=== PATIENT | female | born 1980 | race Hispanic/Latino ===

== ENCOUNTER 2017-08-06 15:58 | Emergency (ER) | payer MEDICAID ==
--- NOTE | 2017-08-06 18:04 | Emergency Department Report ---
ED General Adult HPI - General Chief complaint: Medical Clearance Stated complaint: REFUSAL OF CARE Time Seen by Provider: 08/06/17 17:25 Source: patient, EMS Mode of arrival: Stretcher Limitations: Physical Limitation - History of Present Illness Initial comments: Patient is 36 yo old female history of cerebral palsy and seizure. 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 senior care stated that her tube dislodged last night and replaced with Banks catheter. - Related Data Allergies Allergy/AdvReac Type Severity Reaction Status Date / Time Penicillins Allergy Hives Verified 08/06/17 17:38 ED Review of Systems ROS: Stated complaint: REFUSAL OF CARE Other details as noted in HPI Comment: All other systems reviewed and negative Constitutional: denies: chills, fever Respiratory: denies: cough, orthopnea, shortness of breath, SOB with exertion Cardiovascular: denies: chest pain Gastrointestinal: denies: abdominal pain, nausea, vomiting, diarrhea Genitourinary: denies: urgency Skin: denies: rash Neurological: weakness. denies: headache ED Past Medical Hx - Past Medical History Previous Medical History?: Yes Hx Diabetes: Yes Additional medical history: Guilla Lind[place], Cerebral Palsy, Seizure Disorder, Morbid Obesity, Sleep Apnea, Electrolyte Disorder, Dysautomia, Sinus Tachycardia , Dyshphagia - Surgical History Past Surgical History?: Yes Additional Surgical History: Gastric Banding, saplingectomy, tracheostomy placement, pt unaware of other surgical history - Social History Smoking Status: Never Smoker Substance Use Type: None ED Physical Exam - General Limitations: Physical Limitation General appearance: alert, in no apparent distress - Head Head exam: Present: atraumatic, normocephalic, normal inspection - Eye Eye exam: Present: normal appearance, PERRL Pupils: Present: normal accommodation - ENT ENT exam: Present: normal exam, normal orophraynx, mucous membranes moist - Neck Neck exam: Present: normal inspection, full ROM. Absent: tenderness, meningismus, lymphadenopathy, thyromegaly - Respiratory Respiratory exam: Present: normal lung sounds bilaterally. Absent: respiratory distress, wheezes, rales, rhonchi, stridor, accessory muscle use, decreased breath sounds, prolonged expiratory - Cardiovascular Cardiovascular Exam: Present: regular rate, normal rhythm, normal heart sounds - GI/Abdominal GI/Abdominal exam: Present: soft, normal bowel sounds, other (Banks catheter in the site of PEG tube.). Absent: distended, tenderness, guarding, rebound, rigid , organomegaly, mass, bruit, pulsatile mass, hernia - Extremities Exam Extremities exam: Present: normal inspection, full ROM, normal capillary refill. Absent: tenderness - Back Exam Back exam: Present: normal inspection. Absent: CVA tenderness (R), CVA tenderness (L), muscle spasm, paraspinal tenderness - Neurological Exam Neurological exam: Present: alert, oriented X3, CN II-XII intact - Skin Skin exam: Present: warm, intact, normal color ED Course Vital Signs 08/06/17 08/06/17 08/06/17 16:52 18:56 19:00 Temperature 98.8 F Pulse Rate 100 H 109 H Respiratory 17 20 Rate Blood Pressure 122/86 Blood Pressure 122/91 [Left] O2 Sat by Pulse 96 100 97 Oximetry 08/06/17 19:39 Temperature Pulse Rate 104 H Respiratory 21 Rate Blood Pressure Blood Pressure 131/85 [Left] O2 Sat by Pulse 97 Oximetry - Feeding Tube Replacement Reason for Replacement: fell out Initial Tube Inserted: greater than 4 weeks Type of Tube: gastrostomy Use of Tube: medications and feeding Insertion Site Prior to Procedure: clean Tube Used for Reinsertion: other (18 [place] G-tube) Verification of Placement: auscultation Tube Secured by: G-tube attachment device Patient Tolerated Procedure: well, no complications Critical care attestation.: If time is entered above; I have spent that time in minutes in the direct care of this critically ill patient, excluding procedure time. ED Disposition Clinical Impression: Gastrostomy tube dysfunction Disposition: DC/TX-70 ANOTHER TYPE HLTHCARE Is pt being admited?: No Condition: Stable Instructions: How to Use and Care for Your PEG Tube (ED), Tube Feeding (ED) Referrals: PRIMARY CARE, [Primary Care Provider] - 3-5 Days
[2017-08-07 04:10] VITALS: BP 143/102
== END 2017-08-07 12:43 | disposition other institution (70) ==
LOC: ED 15:58
DX: K94.23 Gastrostomy malfunction (principal); E11.9 Type 2 diabetes mellitus without complications; G40.909 Epilepsy, unspecified, not intractable, without status epilepticus; E66.01 Morbid (severe) obesity due to excess calories; Z88.0 Allergy status to penicillin
CPT/HCPCS: 93005; 93010

== ENCOUNTER 2017-08-07 12:45 | Inpatient (IN) | payer MEDICAID ==
[2017-08-07] MEDS ORDERED: ATIVAN IV ONE ×2 (12:56→14:56)
[2017-08-07] MEDS ORDERED: NACL 0.9% 1000 ML 1,000 ML IV ONE (12:57)
[2017-08-07 16:16] LABS: Basophils % (Auto) 0.6 % (0.0-1.8); Eosinophils % (Auto) 0.3 % (0.0-4.3); Hematocrit 42.4 % (30.3-42.9); Hemoglobin 13.6 gm/dl (10.1-14.3); Mean Corpuscular HGB Conc 32 % (30-34); Mean Corpuscular Volume 80 fl (79-97); Platelet Count 310 K/mm3 (140-440); Red Blood Count 5.27 M/mm3 (3.65-5.03); Red Cell Distribution Width 16.5 % (13.2-15.2); White Blood Count 9.3 K/mm3 (4.5-11.0)
[2017-08-07 16:28] LABS: INR 1.12 (0.87-1.13)
[2017-08-07 16:33] LABS: Alanine Aminotransferase 22 units/L (7-56); Albumin/Globulin Ratio 1.2 %; Alkaline Phosphatase 132 units/L (35-129); Anion Gap 20 mmol/L; BUN/Creatinine Ratio 85; Blood Urea Nitrogen 17 mg/dL (7-17); Calcium 10.1 mg/dL (8.4-10.2); Carbon Dioxide 24 mmol/L (22-30); Chloride 108.1 mmol/L (98-107); Glucose 103 mg/dL (65-100); Mean Corpuscular Hemoglobin 26 pg (28-32); Potassium 3.9 mmol/L (3.6-5.0); Sodium 148 mmol/L (137-145); Total Protein 7.3 g/dL (6.3-8.2)
[2017-08-07] MEDS ORDERED: DILAUDID IV ONE (16:33)
[2017-08-07] MEDS ORDERED: ZOFRAN IV ONE (16:33)
[2017-08-07] MEDS ORDERED: MAGNESIUM SULFATE 2GM/50ML 2 GM/50 ML BAG IV ONE (16:34)
--- NOTE | 2017-08-07 16:35 | Emergency Department Report ---
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 Patient was seen by ER physician as night and had a G-tube replaced. She initially refused to go back to the longterm and after social work evaluation this a.m. was finally agreeable to go back. While awaiting transport patient had a seizure episode with increase in heart rate to the 140s. A new chart was made because patient needed repeat assessment. Patient's heart rate during ED stay the previous day were in the 120s. Patient apparently has a history of sinus tachycardia, baseline unknown. - Related Data Home Medications Medication Instructions Recorded Confirmed Last Taken ALPRAZolam [Xanax TAB] 0.25 mg FEEDTUBE TID PRN 08/07/17 08/07/17 Unknown Acetaminophen [Tylenol] 640 mg PO Q6HR 08/07/17 08/07/17 Unknown Albuterol [Proventil Tab] 2.5 mg IH Q2HR PRN 08/07/17 08/07/17 Unknown Alum-Mag Hydroxide-Simeth Liq 15 ml PO Q4HR 08/07/17 08/07/17 Unknown Enoxaparin [Lovenox] 40 mg SQ QDAY 08/07/17 08/07/17 Unknown Esomeprazole Magnesium 40 mg FEEDTUBE QHS 08/07/17 08/07/17 Unknown Folic Acid [Folvite] 1 mg PO QDAY 08/07/17 08/07/17 Unknown Gabapentin [Neurontin] 400 mg PO TID 08/07/17 08/07/17 Unknown Hydrocortisone [Adv Allergy 1 applic TRANSDERMA BID 08/07/17 08/07/17 Unknown Collection Kit] Lacosamide [Vimpat] 100 mg PO BID 08/07/17 08/07/17 Unknown Lactobacillus Acidophilus 1 each PO DAILY 08/07/17 08/07/17 Unknown [Acidophilus Lactobacilli] diphenhydrAMINE [Benadryl ORAL LIQ] 12.5 mg PO Q6HR PRN 08/07/17 08/07/17 Unknown oxyCODONE [Roxicodone TAB] 2.5 - 5 mg FEEDTUBE Q4HR 08/07/17 08/07/17 Unknown Allergies Allergy/AdvReac Type Severity Reaction Status Date / Time Penicillins Allergy Hives Verified 08/06/17 17:38 ED Review of Systems ROS: Stated complaint: SEIZURE Other details as noted in HPI Comment: All other systems reviewed and negative Other: Constitutional: No fevers Neck: Denies pain Respiratory: Denies shortness of breath Cardiovascular: Denies chest GI: Mao abdominal pain reported Musculoskeletal: Back pain Neurologic: Denies headache, functional quadriplegia Psychiatric: Denies suicidal ideation, hallucinations ED Past Medical Hx - Past Medical History Previous Medical History?: Yes Hx Diabetes: Yes Additional medical history: Guillan [place], Cerebral Palsy, Seizure Disorder, Morbid Obesity, Sleep Apnea, Electrolyte Disorder, Dysautomia, Sinus Tachycardia , Dyshphagia, Cervical DJD, Lumbar DJD, Encephalopathy, Yeast Dermatitis, HTNm Hyperlipidemia, Anemia, Leukocytosis, Renal Mass, Bladder Spasm, Hyponatremia, Hypokalemia, Hypomagnesemia, Depresion/Anxiety, Fibrosis of the Liver, Chronic Respiratory Failure, Psuedoseizure, Rosacea, Diarrhea, - Surgical History Past Surgical History?: Yes Additional Surgical History: Gastric Banding, saplingectomy, tracheostomy placement, pt unaware of other surgical history - Social History Smoking Status: Never Smoker Substance Use Type: None - Medications Home Medications: Home Medications Medication Instructions Recorded Confirmed Last Taken Type ALPRAZolam [Xanax TAB] 0.25 mg FEEDTUBE TID PRN 08/07/17 08/07/17 Unknown History Acetaminophen [Tylenol] 640 mg PO Q6HR 08/07/17 08/07/17 Unknown History Albuterol [Proventil Tab] 2.5 mg IH Q2HR PRN 08/07/17 08/07/17 Unknown History Alum-Mag Hydroxide-Simeth Liq 15 ml PO Q4HR 08/07/17 08/07/17 Unknown History Enoxaparin [Lovenox] 40 mg SQ QDAY 08/07/17 08/07/17 Unknown History Esomeprazole Magnesium 40 mg FEEDTUBE QHS 08/07/17 08/07/17 Unknown History Folic Acid [Folvite] 1 mg PO QDAY 08/07/17 08/07/17 Unknown History Gabapentin [Neurontin] 400 mg PO TID 08/07/17 08/07/17 Unknown History Hydrocortisone [Adv Allergy 1 applic TRANSDERMA BID 08/07/17 08/07/17 Unknown History Collection Kit] Lacosamide [Vimpat] 100 mg PO BID 08/07/17 08/07/17 Unknown History Lactobacillus Acidophilus 1 each PO DAILY 08/07/17 08/07/17 Unknown History [Acidophilus Lactobacilli] diphenhydrAMINE [Benadryl ORAL LIQ] 12.5 mg PO Q6HR PRN 08/07/17 08/07/17 Unknown History oxyCODONE [Roxicodone TAB] 2.5 - 5 mg FEEDTUBE Q4HR 08/07/17 08/07/17 Unknown History ED Physical Exam - General Limitations: Physical Limitation - Other Other exam information: General: No acute distress Head exam: Atraumatic, normocephalic Eyes exam: Normal appearance ENT: Moist mucous membrane Neck exam: Normal inspection, full range of motion, no meningismus nontender, tracheostomy stoma with gauze Respiratory exam: Bilateral rhonchi without wheezing or crackles Cardiovascular: Tachycardia regular rhythm Abdomen: Soft, nondistended, nontender, with normal bowel sounds, no rebound, or guarding. PEG tube left upper quadrant Extremity: Generalized extremity muscle atrophy Back: Normal Inspection Neurologic: Alert, functional quadriplegia ED Course Vital Signs 08/07/17 08/07/17 12:58 16:39 Temperature 98.4 F 98.4 F Pulse Rate 142 H 141 H Respiratory 39 H 16 Rate Blood Pressure 149/107 Blood Pressure 131/94 [Right] O2 Sat by Pulse 98 98 Oximetry - Reevaluation(s) Reevaluation #1: 08/07/17 19:08 Patient had a prolonged course in the ED due to repeated refusals for blood draw. Patient also intermittently refuse IV access attempts delaying care. Patient remains tachycardic despite ED treatment (see MDM note) ED Medical Decision Making - Lab Data Result diagrams: 08/07/17 15:48 08/07/17 15:48 Lab Results 08/07/17 08/07/17 08/07/17 Range/Units 14:31 15:48 15:48 WBC 9.3 (4.5-11.0) K/mm3 RBC 5.27 H (3.65-5.03) M/mm3 Hgb 13.6 (10.1-14.3) gm/dl Hct 42.4 (30.3-42.9) % MCV 80 (79-97) fl MCH 26 L (28-32) pg MCHC 32 (30-34) % RDW 16.5 H (13.2-15.2) % Plt Count 310 (140-440) K/mm3 Lymph % (Auto) 25.8 (13.4-35.0) % [place] % (Auto) 4.1 (0.0-7.3) % Eos % (Auto) 0.3 (0.0-4.3) % Baso % (Auto) 0.6 (0.0-1.8) % Lymph # 2.4 (1.2-5.4) K/mm3 [place] # 0.4 (0.0-0.8) K/mm3 Eos # 0.0 (0.0-0.4) K/mm3 Baso # 0.1 (0.0-0.1) K/mm3 Seg Neutrophils % 69.2 (40.0-70.0) % Seg Neutrophils # 6.4 (1.8-7.7) K/mm3 PT (12.2-14.9) Sec. INR (0.87-1.13) D-Dimer (0-234) ng/mlDDU Sodium 148 H (137-145) mmol/L Potassium 3.9 (3.6-5.0) mmol/L Chloride 108.1 H (98-107) mmol/L Carbon Dioxide 24 (22-30) mmol/L Anion Gap 20 mmol/L BUN 17 (7-17) mg/dL Creatinine < 0.2 L (0.7-1.2) mg/dL Estimated GFR > 60 ml/min BUN/Creatinine Ratio 85 % Glucose 103 H (65-100) mg/dL POC Glucose 96 (70-105) Calcium 10.1 (8.4-10.2) mg/dL Magnesium 1.50 L (1.7-2.3) mg/dL Total Bilirubin 0.20 (0.1-1.2) mg/dL AST 20 (5-40) units/L ALT 22 (7-56) units/L Alkaline Phosphatase 132 H (35-129) units/L Total Protein 7.3 (6.3-8.2) g/dL Albumin 4.0 (3.9-5) g/dL Albumin/Globulin Ratio 1.2 % TSH (0.270-4.200) mlU/mL Free T4 (0.76-1.46) ng/dL Phenytoin (10.0-20.0) ug/mL 08/07/17 08/07/17 08/07/17 Range/Units 15:48 15:48 15:48 WBC (4.5-11.0) K/mm3 RBC (3.65-5.03) M/mm3 Hgb (10.1-14.3) gm/dl Hct (30.3-42.9) % MCV (79-97) fl MCH (28-32) pg MCHC (30-34) % RDW (13.2-15.2) % Plt Count (140-440) K/mm3 Lymph % (Auto) (13.4-35.0) % [place] % (Auto) (0.0-7.3) % Eos % (Auto) (0.0-4.3) % Baso % (Auto) (0.0-1.8) % Lymph # (1.2-5.4) K/mm3 [place] # (0.0-0.8) K/mm3 Eos # (0.0-0.4) K/mm3 Baso # (0.0-0.1) K/mm3 Seg Neutrophils % (40.0-70.0) % Seg Neutrophils # (1.8-7.7) K/mm3 PT 15.0 H (12.2-14.9) Sec. INR 1.12 (0.87-1.13) D-Dimer (0-234) ng/mlDDU Sodium (137-145) mmol/L Potassium (3.6-5.0) mmol/L Chloride (98-107) mmol/L Carbon Dioxide (22-30) mmol/L Anion Gap mmol/L BUN (7-17) mg/dL Creatinine (0.7-1.2) mg/dL Estimated GFR ml/min BUN/Creatinine Ratio % Glucose (65-100) mg/dL POC Glucose (70-105) Calcium (8.4-10.2) mg/dL Magnesium (1.7-2.3) mg/dL Total Bilirubin (0.1-1.2) mg/dL AST (5-40) units/L ALT (7-56) units/L Alkaline Phosphatase (35-129) units/L Total Protein (6.3-8.2) g/dL Albumin (3.9-5) g/dL Albumin/Globulin Ratio % TSH 2.100 (0.270-4.200) mlU/mL Free T4 1.20 (0.76-1.46) ng/dL Phenytoin 1.0 L (10.0-20.0) ug/mL 08/07/17 Range/Units 15:48 WBC (4.5-11.0) K/mm3 RBC (3.65-5.03) M/mm3 Hgb (10.1-14.3) gm/dl Hct (30.3-42.9) % MCV (79-97) fl MCH (28-32) pg MCHC (30-34) % RDW (13.2-15.2) % Plt Count (140-440) K/mm3 Lymph % (Auto) (13.4-35.0) % [place] % (Auto) (0.0-7.3) % Eos % (Auto) (0.0-4.3) % Baso % (Auto) (0.0-1.8) % Lymph # (1.2-5.4) K/mm3 [place] # (0.0-0.8) K/mm3 Eos # (0.0-0.4) K/mm3 Baso # (0.0-0.1) K/mm3 Seg Neutrophils % (40.0-70.0) % Seg Neutrophils # (1.8-7.7) K/mm3 PT (12.2-14.9) Sec. INR (0.87-1.13) D-Dimer 886 H (0-234) ng/mlDDU Sodium (137-145) mmol/L Potassium (3.6-5.0) mmol/L Chloride (98-107) mmol/L Carbon Dioxide (22-30) mmol/L Anion Gap mmol/L BUN (7-17) mg/dL Creatinine (0.7-1.2) mg/dL Estimated GFR ml/min BUN/Creatinine Ratio % Glucose (65-100) mg/dL POC Glucose (70-105) Calcium (8.4-10.2) mg/dL Magnesium (1.7-2.3) mg/dL Total Bilirubin (0.1-1.2) mg/dL AST (5-40) units/L ALT (7-56) units/L Alkaline Phosphatase (35-129) units/L Total Protein (6.3-8.2) g/dL Albumin (3.9-5) g/dL Albumin/Globulin Ratio % TSH (0.270-4.200) mlU/mL Free T4 (0.76-1.46) ng/dL Phenytoin (10.0-20.0) ug/mL - Radiology Data Radiology results: report reviewed Chest x-ray portable: Possible bibasilar pneumonia is seen but findings could possibly be from atelectasis recommended follow-up to ensure resolution G-tube study: Gastric gastrostomy tube appears to be in proper position without evidence of leak. Reflux of contrast seen in the mid thorax and esophagus V/Q exam: very low probability of pulmonary embolus. - Medical Decision Making Patient has persistent tachycardia despite Ativan, pain medication for back pain , and IV fluids. No signs of anemia, hypotension, PE or thyroid storm. Chest x -ray significant for possible basilar atelectasis versus pneumonia. Patient does not have leukocytosis, we'll put a cough, or fever but blood cultures will be ordered and patient will be covered with antibiotics. Patient had 2 seizures any ED with a subtherapeutic Dilantin level and was given IV Dilantin in the ED P Patient will be admitted to the hospital for persistent tachycardia of unknown origin at this time and for treatment of possible pneumonia - Differential Diagnosis thyroid disease, PE, dehydration, anemia, med noncomp, misplaced peg Critical Care Time: No Critical care attestation.: If time is entered above; I have spent that time in minutes in the direct care of this critically ill patient, excluding procedure time. ED Disposition Clinical Impression: Seizures, Subtherapeutic serum dilantin level, Sinus tachycardia, Hypomagnesemia, Pulmonary infiltrate Disposition: OP ADMIT IP TO THIS HOSP Is pt being admited?: Yes Condition: Stable Time of Disposition: 19:21 (Dr Collier/hosp)
--- NOTE | 2017-08-07 16:45 | XRay Report ---
FINAL REPORT PROCEDURE: XR G-TUBE STUDY TECHNIQUE: AP radiographs of the abdomen are obtained prior to and following instillation of GI contrast via the PEG tube. HISTORY: s/p g tube placement COMPARISON: No prior studies are available for comparison. FINDINGS: Initial image shows a percutaneous gastrostomy tube overlying the left upper quadrant the abdomen. Mild small and large bowel air is seen. Following instillation of GI contrast, there is filling of the stomach with reflux into the mid thoracic esophagus off of the edge of the image. There is emptying of contrast into the duodenum and jejunum. No contrast extravasation is seen. IMPRESSION: Gastrostomy tube appears appropriately positioned without evidence of leak. Reflux of contrast is seen into the mid thoracic esophagus.
--- NOTE | 2017-08-07 16:46 | XRay Report ---
FINAL REPORT PROCEDURE: XR CHEST 1V AP TECHNIQUE: Chest radiograph anteroposterior view. CPT 71509 HISTORY: tachycardia COMPARISON: No prior studies are available for comparison. FINDINGS: Heart: Normal. Mediastinum/Vessels: Normal. Lungs/Pleural space: Air bronchograms are seen in the retrocardiac region and right infrahilar region. Findings are suspicious for possible mild bibasilar pneumonia. Findings may just represent atelectasis, though. Possible small left pleural effusion is seen.. Bony thorax: No acute osseous abnormality. Life support devices: None. IMPRESSION: Possible bibasilar pneumonia is seen but findings could possibly be from atelectasis. Follow-up x-rays are recommended to assure resolution.
[2017-08-07] MEDS ORDERED: DILANTIN 1,000 MG in NACL 0.9% 250ML 250 ML IV ONE (17:35)
--- NOTE | 2017-08-07 18:30 | Nuclear Medicine Report ---
FINAL REPORT PROCEDURE: NM LUNG SCAN PERF/VENT TECHNIQUE: Five mCi Tc-99m MAA was injected IV for pulmonary perfusion imaging in multiple projections. 15 mCi xenon 133 gas was inhaled for pulmonary ventilation imaging in multiple projections. HISTORY: tachycardia, elevated dddimer COMPARISON: Chest x-ray from the same day FINDINGS: Artifact limits perfusion imaging. No definite perfusion or ventilation defects are seen. IMPRESSION: Exam has very low probability for pulmonary embolus using revised PIOPED criteria.
[2017-08-07] MEDS ORDERED: LEVAQUIN 750MG/150ML 750 MG/150 ML BAG IV ONE (19:08)
--- NOTE | 2017-08-07 19:47 | History and Physical Report ---
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 Pt unable to provide history. Pt history taken from ED staff as well as SNF staff. Pt initially seen and evaluated in ED for dislodged PEG tube. Patient was seen by ER physician overnight and had PEG-tube replaced. Patient initially refused to go back to the residential. Pt seen and evaluated by social work this a.m. was finally agreeable to discharge. While awaiting transport the patient had a witnessed seizure episode. Pt seen and reevaluated and found to have status epilepticus. Past History Past Medical History: seizures, other (Guillan [place], Cerebral Palsy, Seizure Disorder, Morbid Obesity, Sleep Apnea, Electrolyte Disorder, Dysautomia, Sinus Tachycardia, Dyshphagia, Cervical DJD, Lumbar DJD, Encephalopathy, Yeast Dermatitis, HTNm Hyperlipidemia, Anemia, Leukocytosis, Renal Mass, Bladder Spasm , Hyponatremia, Hypokalemia, Hypomagnesemia, Depresion/Anxiety, Fibrosis of the Liver, Chronic Respiratory Failure, Psuedoseizure, Rosacea, Diarrhea,) Past Surgical History: Other (Gastric Banding, Salpingectomy, Tracheostomy) Social history: single. denies: smoking, alcohol abuse, prescription drug abuse Family history: no significant family history, other (reviewed) Medications and Allergies Allergies Allergy/AdvReac Type Severity Reaction Status Date / Time Penicillins Allergy Hives Verified 08/06/17 17:38 Home Medications Medication Instructions Recorded Confirmed Last Taken Type ALPRAZolam [Xanax TAB] 0.25 mg FEEDTUBE TID PRN 08/07/17 08/07/17 Unknown History Acetaminophen [Tylenol] 640 mg PO Q6HR 08/07/17 08/07/17 Unknown History Albuterol [Proventil Tab] 2.5 mg IH Q2HR PRN 08/07/17 08/07/17 Unknown History Alum-Mag Hydroxide-Simeth Liq 15 ml PO Q4HR 08/07/17 08/07/17 Unknown History Enoxaparin [Lovenox] 40 mg SQ QDAY 08/07/17 08/07/17 Unknown History Esomeprazole Magnesium 40 mg FEEDTUBE QHS 08/07/17 08/07/17 Unknown History Folic Acid [Folvite] 1 mg PO QDAY 08/07/17 08/07/17 Unknown History Gabapentin [Neurontin] 400 mg PO TID 08/07/17 08/07/17 Unknown History Hydrocortisone [Adv Allergy 1 applic TRANSDERMA BID 08/07/17 08/07/17 Unknown History Collection Kit] Lacosamide [Vimpat] 100 mg PO BID 08/07/17 08/07/17 Unknown History Lactobacillus Acidophilus 1 each PO DAILY 08/07/17 08/07/17 Unknown History [Acidophilus Lactobacilli] diphenhydrAMINE [Benadryl ORAL LIQ] 12.5 mg PO Q6HR PRN 08/07/17 08/07/17 Unknown History oxyCODONE [Roxicodone TAB] 2.5 - 5 mg FEEDTUBE Q4HR 08/07/17 08/07/17 Unknown History Active Meds: Active Medications Levofloxacin/Dextrose (Levaquin 750mg/150ml) 750 mg in 150 mls @ 100 mls/hr IV ONCE ONE Stop: 08/07/17 20:37 Review of Systems ROS unobtainable: due to mental status Exam - Constitutional Vitals: Temp Pulse Resp BP Pulse Ox 100.4 F H 120 H 18 134/76 93 08/07/17 19:36 08/07/17 19:36 08/07/17 19:36 08/07/17 19:36 08/07/17 19:36 General appearance: Present: mild distress - EENT Eyes: Present: PERRL ENT: hearing intact, clear oral mucosa - Neck Neck: Present: supple, normal ROM - Respiratory Respiratory: bilateral: diminished, rhonchi - Cardiovascular Rhythm: other (tachycardia) Heart Sounds: Present: S1 & S2 - Extremities Extremities: pulses symmetrical, No edema Peripheral Pulses: within normal limits - Abdominal General gastrointestinal: Present: soft, non-tender, non-distended, normal bowel sounds, other (PEG tube in place) Female genitourinary: Present: normal - Rectal Rectal Exam: normal exam-external/orifice - Integumentary Integumentary: Present: clear, warm, dry - Musculoskeletal Musculoskeletal: generalized weakness - Psychiatric Psychiatric: no intact judgment & insight, no memory intact - Neurologic Neurologic: CNII-XII intact, no moves all extremities, no gait normal Results - Labs CBC & Chem 7: 12/10/17 15:48 08/07/17 15:48 Labs: Abnormal lab results 08/07/17 08/07/17 08/07/17 Range/Units 15:48 15:48 15:48 RBC 5.27 H (3.65-5.03) M/mm3 MCH 26 L (28-32) pg RDW 16.5 H (13.2-15.2) % PT (12.2-14.9) Sec. D-Dimer (0-234) ng/mlDDU Sodium 148 H (137-145) mmol/L Chloride 108.1 H (98-107) mmol/L Creatinine < 0.2 L (0.7-1.2) mg/dL Glucose 103 H (65-100) mg/dL Magnesium 1.50 L (1.7-2.3) mg/dL Alkaline Phosphatase 132 H (35-129) units/L Phenytoin 1.0 L (10.0-20.0) ug/mL 08/07/17 08/07/17 Range/Units 15:48 15:48 RBC (3.65-5.03) M/mm3 MCH (28-32) pg RDW (13.2-15.2) % PT 15.0 H (12.2-14.9) Sec. D-Dimer 886 H (0-234) ng/mlDDU Sodium (137-145) mmol/L Chloride (98-107) mmol/L Creatinine (0.7-1.2) mg/dL Glucose (65-100) mg/dL Magnesium (1.7-2.3) mg/dL Alkaline Phosphatase (35-129) units/L Phenytoin (10.0-20.0) ug/mL Assessment and Plan - Patient Problems (1) Seizure disorder Current Visit: Yes Status: Acute Plan to address problem: Pt loaded with dilantin in ED, dilantin level in am, aspiration precautions, supportive care, neuro checks. (2) Hypernatremia Current Visit: Yes Status: Acute Plan to address problem: IVF resuscitation therapy, secondary to volume depletion. 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
[2017-08-07] MEDS ORDERED: PROVENTIL IH PRN (19:49)
[2017-08-07] MEDS ORDERED: ZOFRAN IV PRN (19:49)
[2017-08-07] MEDS ORDERED: BENADRYL PO PRN (19:52)
[2017-08-07] MEDS ORDERED: DILANTIN PO ONE (21:00)
[2017-08-07] MEDS: VIMPAT PO SCH ×2 (21:33→22:12)
[2017-08-07] MEDS ORDERED: MAGNESIUM HYDROXIDE PO SCH (22:00)
[2017-08-07] MEDS ORDERED: ALUMINUM HYDROXIDE PO SCH (22:00)
[2017-08-07] MEDS ORDERED: SIMETHICONE PO SCH (22:00)
[2017-08-07] MEDS ORDERED: ESOMEPRAZOLE MAGNESIUM 40 MG FEEDTUBE SCH (22:00)
[2017-08-07] MEDS: NEURONTIN PO SCH (22:11)
[2017-08-07] MEDS: ALUM-MAG HYDROX-SIMETH 200-200-20MG/5ML PO SCH (22:13)
[2017-08-08] MEDS ORDERED: TYLENOL PO SCH
[2017-08-08] MEDS: ALUM-MAG HYDROX-SIMETH 200-200-20MG/5ML PO SCH ×6 (01:48→22:07)
[2017-08-08] MEDS ORDERED: ATIVAN IV ONE (03:57)
[2017-08-08] MEDS ORDERED: NACL 0.9% IV SCH (04:00)
[2017-08-08] MEDS ORDERED: NACL 0.9% 1000 ML 1,000 ML ONE (04:06)
[2017-08-08] MEDS: NEURONTIN PO SCH ×3 (08:00→22:08)
[2017-08-08] MEDS: FLORANEX PO SCH (10:00)
[2017-08-08] MEDS: VIMPAT PO SCH ×2 (10:00→22:08)
[2017-08-08] MEDS ORDERED: LACTOBACILLUS ACIDOPHILUS PO SCH (10:00)
[2017-08-08] MEDS: NACL 0.9% 1000 ML 1,000 ML IV SCH (11:00)
--- NOTE | 2017-08-08 12:21 | Progress Note ---
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 Pt unable to provide history. Pt history taken from ED staff as well as SNF staff. Pt initially seen and evaluated in ED for dislodged PEG tube. Patient was seen by ER physician overnight and had PEG-tube replaced. Patient initially refused to go back to the long-term. Pt seen and evaluated by social work this a.m. was finally agreeable to discharge. While awaiting transport the patient had a witnessed seizure episode. Pt seen and reevaluated and found to have status epilepticus Assessment and Plan Seizure disorder Patient on Vimpat aspiration precautions, supportive care, neuro checks. Hypernatremia IVF resuscitation therapy, secondary to volume depletion. 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 Denies CP, SOB, N/V Hospitalist Physical - Constitutional Vitals: Temp Pulse Resp BP Pulse Ox 97.9 F 110 H 18 128/71 98 08/08/17 10:13 08/08/17 10:13 08/08/17 10:13 08/08/17 10:13 08/08/17 10:13 General appearance: Present: no acute distress - EENT Eyes: Present: PERRL, EOM intact ENT: hearing intact, clear oral mucosa, poor dentition - Neck Neck: Present: supple, rigidity, other (tracheostomy stoma with gauze) - Respiratory Respiratory effort: normal Respiratory: bilateral: diminished - Cardiovascular Rhythm: regular Heart Sounds: Present: S1 & S2 - Extremities Extremities: no ischemia, No edema Extremity abnormal: other ( Generalized extremity muscle atrophy) - Abdominal General gastrointestinal: soft, non-tender, non-distended, other ( PEG tube left upper quadrant) - Integumentary Integumentary: Present: clear, warm, dry - Psychiatric Psychiatric: cooperative - Neurologic Neurologic: other ( Alert, functional quadriplegia) - Allied Health Allied health notes reviewed: nursing Results - Labs CBC & Chem 7: 08/07/17 15:48 08/07/17 15:48 Labs: Laboratory Last Values WBC 9.3 K/mm3 (4.5-11.0) 08/07/17 15:48 RBC 5.27 M/mm3 (3.65-5.03) H 08/07/17 15:48 Hgb 13.6 gm/dl (10.1-14.3) 08/07/17 15:48 Hct 42.4 % (30.3-42.9) 08/07/17 15:48 MCV 80 fl (79-97) 08/07/17 15:48 MCH 26 pg (28-32) L 08/07/17 15:48 MCHC 32 % (30-34) 08/07/17 15:48 RDW 16.5 % (13.2-15.2) H 08/07/17 15:48 Plt Count 310 K/mm3 (140-440) 08/07/17 15:48 Lymph % (Auto) 25.8 % (13.4-35.0) 08/07/17 15:48 [place] % (Auto) 4.1 % (0.0-7.3) 08/07/17 15:48 Eos % (Auto) 0.3 % (0.0-4.3) 08/07/17 15:48 Baso % (Auto) 0.6 % (0.0-1.8) 08/07/17 15:48 Lymph # 2.4 K/mm3 (1.2-5.4) 08/07/17 15:48 [place] # 0.4 K/mm3 (0.0-0.8) 08/07/17 15:48 Eos # 0.0 K/mm3 (0.0-0.4) 08/07/17 15:48 Baso # 0.1 K/mm3 (0.0-0.1) 08/07/17 15:48 Seg Neutrophils % 69.2 % (40.0-70.0) 08/07/17 15:48 Seg Neutrophils # 6.4 K/mm3 (1.8-7.7) 08/07/17 15:48 PT 15.0 Sec. (12.2-14.9) H 08/07/17 15:48 INR 1.12 (0.87-1.13) 08/07/17 15:48 D-Dimer 886 ng/mlDDU (0-234) H 08/07/17 15:48 Sodium 148 mmol/L (137-145) H 08/07/17 15:48 Potassium 3.9 mmol/L (3.6-5.0) 08/07/17 15:48 Chloride 108.1 mmol/L (98-107) H 08/07/17 15:48 Carbon Dioxide 24 mmol/L (22-30) 08/07/17 15:48 Anion Gap 20 mmol/L 08/07/17 15:48 BUN 17 mg/dL (7-17) 08/07/17 15:48 Creatinine < 0.2 mg/dL (0.7-1.2) L 08/07/17 15:48 Estimated GFR > 60 ml/min 08/07/17 15:48 BUN/Creatinine Ratio 85 % 08/07/17 15:48 Glucose 103 mg/dL (65-100) H 08/07/17 15:48 POC Glucose 75 (70-105) 08/08/17 12:02 Calcium 10.1 mg/dL (8.4-10.2) 08/07/17 15:48 Magnesium 1.50 mg/dL (1.7-2.3) L 08/07/17 15:48 Total Bilirubin 0.20 mg/dL (0.1-1.2) 08/07/17 15:48 AST 20 units/L (5-40) 08/07/17 15:48 ALT 22 units/L (7-56) 08/07/17 15:48 Alkaline Phosphatase 132 units/L (35-129) H 08/07/17 15:48 Total Protein 7.3 g/dL (6.3-8.2) 08/07/17 15:48 Albumin 4.0 g/dL (3.9-5) 08/07/17 15:48 Albumin/Globulin Ratio 1.2 % 08/07/17 15:48 TSH 2.100 mlU/mL (0.270-4.200) 08/07/17 15:48 Free T4 1.20 ng/dL (0.76-1.46) 08/07/17 15:48 Phenytoin 1.0 ug/mL (10.0-20.0) L 08/07/17 15:48 - Imaging and Cardiology Chest x-ray: report reviewed <THIEN MEADOWS Argenis - Last Filed: 08/08/17 16:19> Assessment and Plan Assessment and plan: I saw and evaluated the patient. I agree with the findings and the plan of care as documented in the PA's~note, with the following corrections and additions. Hospitalist Physical - Constitutional Vitals: Temp Pulse Resp BP Pulse Ox 99.3 F 110 H 22 129/83 98 08/08/17 12:01 08/08/17 12:01 08/08/17 12:01 08/08/17 12:01 08/08/17 12:01 Results - Labs CBC & Chem 7: 08/07/17 15:48 08/07/17 15:48 Labs: Laboratory Last Values WBC 9.3 K/mm3 (4.5-11.0) 08/07/17 15:48 RBC 5.27 M/mm3 (3.65-5.03) H 08/07/17 15:48 Hgb 13.6 gm/dl (10.1-14.3) 08/07/17 15:48 Hct 42.4 % (30.3-42.9) 08/07/17 15:48 MCV 80 fl (79-97) 08/07/17 15:48 MCH 26 pg (28-32) L 08/07/17 15:48 MCHC 32 % (30-34) 08/07/17 15:48 RDW 16.5 % (13.2-15.2) H 08/07/17 15:48 Plt Count 310 K/mm3 (140-440) 08/07/17 15:48 Lymph % (Auto) 25.8 % (13.4-35.0) 08/07/17 15:48 [place] % (Auto) 4.1 % (0.0-7.3) 08/07/17 15:48 Eos % (Auto) 0.3 % (0.0-4.3) 08/07/17 15:48 Baso % (Auto) 0.6 % (0.0-1.8) 08/07/17 15:48 Lymph # 2.4 K/mm3 (1.2-5.4) 08/07/17 15:48 [place] # 0.4 K/mm3 (0.0-0.8) 08/07/17 15:48 Eos # 0.0 K/mm3 (0.0-0.4) 08/07/17 15:48 Baso # 0.1 K/mm3 (0.0-0.1) 08/07/17 15:48 Seg Neutrophils % 69.2 % (40.0-70.0) 08/07/17 15:48 Seg Neutrophils # 6.4 K/mm3 (1.8-7.7) 08/07/17 15:48 PT 15.0 Sec. (12.2-14.9) H 08/07/17 15:48 INR 1.12 (0.87-1.13) 08/07/17 15:48 D-Dimer 886 ng/mlDDU (0-234) H 08/07/17 15:48 Sodium 148 mmol/L (137-145) H 08/07/17 15:48 Potassium 3.9 mmol/L (3.6-5.0) 08/07/17 15:48 Chloride 108.1 mmol/L (98-107) H 08/07/17 15:48 Carbon Dioxide 24 mmol/L (22-30) 08/07/17 15:48 Anion Gap 20 mmol/L 08/07/17 15:48 BUN 17 mg/dL (7-17) 08/07/17 15:48 Creatinine < 0.2 mg/dL (0.7-1.2) L 08/07/17 15:48 Estimated GFR > 60 ml/min 08/07/17 15:48 BUN/Creatinine Ratio 85 % 08/07/17 15:48 Glucose 103 mg/dL (65-100) H 08/07/17 15:48 POC Glucose 75 (70-105) 08/08/17 12:02 Calcium 10.1 mg/dL (8.4-10.2) 08/07/17 15:48 Magnesium 1.50 mg/dL (1.7-2.3) L 08/07/17 15:48 Total Bilirubin 0.20 mg/dL (0.1-1.2) 08/07/17 15:48 AST 20 units/L (5-40) 08/07/17 15:48 ALT 22 units/L (7-56) 08/07/17 15:48 Alkaline Phosphatase 132 units/L (35-129) H 08/07/17 15:48 Total Protein 7.3 g/dL (6.3-8.2) 08/07/17 15:48 Albumin 4.0 g/dL (3.9-5) 08/07/17 15:48 Albumin/Globulin Ratio 1.2 % 08/07/17 15:48 TSH 2.100 mlU/mL (0.270-4.200) 08/07/17 15:48 Free T4 1.20 ng/dL (0.76-1.46) 08/07/17 15:48 Phenytoin 1.0 ug/mL (10.0-20.0) L 08/07/17 15:48
[2017-08-08] MEDS ORDERED: SODIUM BICARBONATE FEEDTUBE PRN (15:34)
[2017-08-08] MEDS ORDERED: PANCREAZE DR 10,500 UNIT FEEDTUBE PRN (15:34)
[2017-08-08] MEDS ORDERED: SIMPLE SYRUP FEEDTUBE PRN ×2 (15:34)
[2017-08-08] MEDS: LOVENOX SUB-Q SCH (15:47)
[2017-08-08] MEDS: PROTONIX FEEDTUBE SCH (17:45)
[2017-08-08] MEDS: XANAX FEEDTUBE PRN (17:45)
[2017-08-08] MEDS: FOLVITE PO SCH (17:45)
[2017-08-08] MEDS: TYLENOL PO PRN (22:12)
[2017-08-09] MEDS: ALUM-MAG HYDROX-SIMETH 200-200-20MG/5ML PO SCH ×6 (02:13→21:04)
[2017-08-09] MEDS: TYLENOL PO PRN ×2 (03:10→20:37)
[2017-08-09] MEDS: NEURONTIN PO SCH ×3 (08:30→20:37)
[2017-08-09] MEDS: FLORANEX PO SCH (09:02)
[2017-08-09] MEDS: LOVENOX SUB-Q SCH (09:04)
[2017-08-09] MEDS: PROTONIX FEEDTUBE SCH (09:04)
[2017-08-09] MEDS: VIMPAT PO SCH ×2 (09:04→21:04)
[2017-08-09] MEDS: FOLVITE PO SCH (09:05)
--- NOTE | 2017-08-09 09:21 | Progress Note ---
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 Pt unable to provide history. Pt history taken from ED staff as well as SNF staff. Pt initially seen and evaluated in ED for dislodged PEG tube. Patient was seen by ER physician overnight and had PEG-tube replaced. Patient initially refused to go back to the half-way. Pt seen and evaluated by social work this a.m. was finally agreeable to discharge. While awaiting transport the patient had a witnessed seizure episode. Pt seen and reevaluated and found to have status epilepticus Assessment and Plan Seizure disorder Patient on Vimpat aspiration precautions, supportive care, neuro checks. Hypernatremia IVF resuscitation therapy, secondary to volume depletion. Monitor uop q shift, Will recheck BMP in the am Spastic hemiplegia secondary to cerebral palsy Pain control, supportive care DVT prophylaxis lovenox History Interval history: Patient alert and awake in bed. Denies CP, SOB, N/V Hospitalist Physical - Constitutional Vitals: Temp Pulse Resp BP Pulse Ox 98.6 F 100 H 20 143/98 99 08/09/17 08:13 08/09/17 08:13 08/09/17 08:13 08/09/17 08:13 08/09/17 08:13 General appearance: Present: no acute distress - EENT Eyes: Present: PERRL, EOM intact ENT: hearing intact, clear oral mucosa, poor dentition - Neck Neck: Present: supple, normal ROM - Respiratory Respiratory effort: normal Respiratory: bilateral: CTA - Cardiovascular Rhythm: regular Heart Sounds: Present: S1 & S2 - Extremities Extremities: no ischemia, No edema - Abdominal General gastrointestinal: soft, non-tender - Integumentary Integumentary: Present: clear, warm, dry - Psychiatric Psychiatric: appropriate mood/affect, cooperative - Neurologic Neurologic: CNII-XII intact, moves all extremities - Allied Health Allied health notes reviewed: nursing Results - Labs CBC & Chem 7: 08/07/17 15:48 08/07/17 15:48 Labs: Laboratory Last Values WBC 9.3 K/mm3 (4.5-11.0) 08/07/17 15:48 RBC 5.27 M/mm3 (3.65-5.03) H 08/07/17 15:48 Hgb 13.6 gm/dl (10.1-14.3) 08/07/17 15:48 Hct 42.4 % (30.3-42.9) 08/07/17 15:48 MCV 80 fl (79-97) 08/07/17 15:48 MCH 26 pg (28-32) L 08/07/17 15:48 MCHC 32 % (30-34) 08/07/17 15:48 RDW 16.5 % (13.2-15.2) H 08/07/17 15:48 Plt Count 310 K/mm3 (140-440) 08/07/17 15:48 Lymph % (Auto) 25.8 % (13.4-35.0) 08/07/17 15:48 [place] % (Auto) 4.1 % (0.0-7.3) 08/07/17 15:48 Eos % (Auto) 0.3 % (0.0-4.3) 08/07/17 15:48 Baso % (Auto) 0.6 % (0.0-1.8) 08/07/17 15:48 Lymph # 2.4 K/mm3 (1.2-5.4) 08/07/17 15:48 [place] # 0.4 K/mm3 (0.0-0.8) 08/07/17 15:48 Eos # 0.0 K/mm3 (0.0-0.4) 08/07/17 15:48 Baso # 0.1 K/mm3 (0.0-0.1) 08/07/17 15:48 Seg Neutrophils % 69.2 % (40.0-70.0) 08/07/17 15:48 Seg Neutrophils # 6.4 K/mm3 (1.8-7.7) 08/07/17 15:48 PT 15.0 Sec. (12.2-14.9) H 08/07/17 15:48 INR 1.12 (0.87-1.13) 08/07/17 15:48 D-Dimer 886 ng/mlDDU (0-234) H 08/07/17 15:48 Sodium 148 mmol/L (137-145) H 08/07/17 15:48 Potassium 3.9 mmol/L (3.6-5.0) 08/07/17 15:48 Chloride 108.1 mmol/L (98-107) H 08/07/17 15:48 Carbon Dioxide 24 mmol/L (22-30) 08/07/17 15:48 Anion Gap 20 mmol/L 08/07/17 15:48 BUN 17 mg/dL (7-17) 08/07/17 15:48 Creatinine < 0.2 mg/dL (0.7-1.2) L 08/07/17 15:48 Estimated GFR > 60 ml/min 08/07/17 15:48 BUN/Creatinine Ratio 85 % 08/07/17 15:48 Glucose 103 mg/dL (65-100) H 08/07/17 15:48 POC Glucose 75 (70-105) 08/08/17 12:02 Calcium 10.1 mg/dL (8.4-10.2) 08/07/17 15:48 Magnesium 1.50 mg/dL (1.7-2.3) L 08/07/17 15:48 Total Bilirubin 0.20 mg/dL (0.1-1.2) 08/07/17 15:48 AST 20 units/L (5-40) 08/07/17 15:48 ALT 22 units/L (7-56) 08/07/17 15:48 Alkaline Phosphatase 132 units/L (35-129) H 08/07/17 15:48 Total Protein 7.3 g/dL (6.3-8.2) 08/07/17 15:48 Albumin 4.0 g/dL (3.9-5) 08/07/17 15:48 Albumin/Globulin Ratio 1.2 % 08/07/17 15:48 TSH 2.100 mlU/mL (0.270-4.200) 08/07/17 15:48 Free T4 1.20 ng/dL (0.76-1.46) 08/07/17 15:48 Phenytoin 1.0 ug/mL (10.0-20.0) L 08/07/17 15:48 <THIEN MEADOWS R - Last Filed: 08/09/17 11:53> Assessment and Plan Assessment and plan: I saw and evaluated the patient. I agree with the findings and the plan of care as documented in the PA's~note, with the following corrections and additions. Hospitalist Physical - Constitutional Vitals: Temp Pulse Resp BP Pulse Ox 98.6 F 100 H 20 143/98 99 08/09/17 08:13 08/09/17 08:13 08/09/17 08:13 08/09/17 08:13 08/09/17 08:13 Results - Labs CBC & Chem 7: 08/07/17 15:48 08/07/17 15:48 Labs: Laboratory Last Values WBC 9.3 K/mm3 (4.5-11.0) 08/07/17 15:48 RBC 5.27 M/mm3 (3.65-5.03) H 08/07/17 15:48 Hgb 13.6 gm/dl (10.1-14.3) 08/07/17 15:48 Hct 42.4 % (30.3-42.9) 08/07/17 15:48 MCV 80 fl (79-97) 08/07/17 15:48 MCH 26 pg (28-32) L 08/07/17 15:48 MCHC 32 % (30-34) 08/07/17 15:48 RDW 16.5 % (13.2-15.2) H 08/07/17 15:48 Plt Count 310 K/mm3 (140-440) 08/07/17 15:48 Lymph % (Auto) 25.8 % (13.4-35.0) 08/07/17 15:48 [place] % (Auto) 4.1 % (0.0-7.3) 08/07/17 15:48 Eos % (Auto) 0.3 % (0.0-4.3) 08/07/17 15:48 Baso % (Auto) 0.6 % (0.0-1.8) 08/07/17 15:48 Lymph # 2.4 K/mm3 (1.2-5.4) 08/07/17 15:48 [place] # 0.4 K/mm3 (0.0-0.8) 08/07/17 15:48 Eos # 0.0 K/mm3 (0.0-0.4) 08/07/17 15:48 Baso # 0.1 K/mm3 (0.0-0.1) 08/07/17 15:48 Seg Neutrophils % 69.2 % (40.0-70.0) 08/07/17 15:48 Seg Neutrophils # 6.4 K/mm3 (1.8-7.7) 08/07/17 15:48 PT 15.0 Sec. (12.2-14.9) H 08/07/17 15:48 INR 1.12 (0.87-1.13) 08/07/17 15:48 D-Dimer 886 ng/mlDDU (0-234) H 08/07/17 15:48 Sodium 148 mmol/L (137-145) H 08/07/17 15:48 Potassium 3.9 mmol/L (3.6-5.0) 08/07/17 15:48 Chloride 108.1 mmol/L (98-107) H 08/07/17 15:48 Carbon Dioxide 24 mmol/L (22-30) 08/07/17 15:48 Anion Gap 20 mmol/L 08/07/17 15:48 BUN 17 mg/dL (7-17) 08/07/17 15:48 Creatinine < 0.2 mg/dL (0.7-1.2) L 08/07/17 15:48 Estimated GFR > 60 ml/min 08/07/17 15:48 BUN/Creatinine Ratio 85 % 08/07/17 15:48 Glucose 103 mg/dL (65-100) H 08/07/17 15:48 POC Glucose 75 (70-105) 08/08/17 12:02 Calcium 10.1 mg/dL (8.4-10.2) 08/07/17 15:48 Magnesium 1.50 mg/dL (1.7-2.3) L 08/07/17 15:48 Total Bilirubin 0.20 mg/dL (0.1-1.2) 08/07/17 15:48 AST 20 units/L (5-40) 08/07/17 15:48 ALT 22 units/L (7-56) 08/07/17 15:48 Alkaline Phosphatase 132 units/L (35-129) H 08/07/17 15:48 Total Protein 7.3 g/dL (6.3-8.2) 08/07/17 15:48 Albumin 4.0 g/dL (3.9-5) 08/07/17 15:48 Albumin/Globulin Ratio 1.2 % 08/07/17 15:48 TSH 2.100 mlU/mL (0.270-4.200) 08/07/17 15:48 Free T4 1.20 ng/dL (0.76-1.46) 08/07/17 15:48 Phenytoin 1.0 ug/mL (10.0-20.0) L 08/07/17 15:48
[2017-08-09] MEDS: XANAX FEEDTUBE PRN (21:28)
[2017-08-10] MEDS: TYLENOL PO PRN ×3 (02:14→20:50)
[2017-08-10] MEDS: ALUM-MAG HYDROX-SIMETH 200-200-20MG/5ML PO SCH ×6 (02:15→21:30)
[2017-08-10] MEDS: XANAX FEEDTUBE PRN (04:50)
[2017-08-10] MEDS: FLORANEX PO SCH (09:05)
[2017-08-10] MEDS: NEURONTIN PO SCH ×3 (09:05→20:23)
[2017-08-10] MEDS: PROTONIX FEEDTUBE SCH (09:05)
[2017-08-10] MEDS: FOLVITE PO SCH (09:05)
[2017-08-10] MEDS: VIMPAT PO SCH ×2 (09:06→21:30)
[2017-08-10] MEDS: LOVENOX SUB-Q SCH (09:06)
[2017-08-10 11:18] LABS: Basophils % (Auto) 0.4 % (0.0-1.8); Hematocrit 32.9 % (30.3-42.9); Hemoglobin 10.6 gm/dl (10.1-14.3); Mean Corpuscular HGB Conc 32 % (30-34); Mean Corpuscular Volume 80 fl (79-97); Platelet Count 229 K/mm3 (140-440); Red Cell Distribution Width 15.9 % (13.2-15.2); White Blood Count 7.3 K/mm3 (4.5-11.0)
[2017-08-10 11:22] LABS: Mean Corpuscular Hemoglobin 26 pg (28-32)
[2017-08-10 11:58] LABS: Anion Gap 16 mmol/L; BUN/Creatinine Ratio 25; Blood Urea Nitrogen 5 mg/dL (7-17); Calcium 8.2 mg/dL (8.4-10.2); Carbon Dioxide 27 mmol/L (22-30); Chloride 103.3 mmol/L (98-107); Glucose 130 mg/dL (65-100); Sodium 144 mmol/L (137-145)
[2017-08-10 12:05] LABS: Potassium 2.6 mmol/L (3.6-5.0)
[2017-08-10] MEDS ORDERED: POTASSIUM CHLORIDE FEEDTUBE ONE (13:30)
[2017-08-10] MEDS ORDERED: PANCREAZE DR 10,500 UNIT FEEDTUBE PRN (14:52)
[2017-08-10] MEDS ORDERED: SODIUM BICARBONATE FEEDTUBE PRN (14:52)
[2017-08-10] MEDS ORDERED: SIMPLE SYRUP FEEDTUBE PRN ×2 (14:52)
--- NOTE | 2017-08-10 15:05 | Progress Note ---
<ABDIELTHIEN R - Last Filed: 08/10/17 15:12> Assessment and Plan Assessment and plan: I saw and evaluated the patient. I agree with the findings and the plan of care as documented in the PA's~note, with the following corrections and additions. Hospitalist Physical - Constitutional Vitals: Temp Pulse Resp BP Pulse Ox 97.7 F 97 H 20 146/103 98 08/10/17 07:33 08/10/17 07:33 08/10/17 07:33 08/10/17 07:33 08/10/17 07:33 Results - Labs CBC & Chem 7: 08/10/17 10:35 08/10/17 10:35 Labs: Laboratory Last Values WBC 7.3 K/mm3 (4.5-11.0) 08/10/17 10:35 RBC 4.10 M/mm3 (3.65-5.03) 08/10/17 10:35 Hgb 10.6 gm/dl (10.1-14.3) D 08/10/17 10:35 Hct 32.9 % (30.3-42.9) D 08/10/17 10:35 MCV 80 fl (79-97) 08/10/17 10:35 MCH 26 pg (28-32) L 08/10/17 10:35 MCHC 32 % (30-34) 08/10/17 10:35 RDW 15.9 % (13.2-15.2) H 08/10/17 10:35 Plt Count 229 K/mm3 (140-440) 08/10/17 10:35 Lymph % (Auto) 28.3 % (13.4-35.0) 08/10/17 10:35 [place] % (Auto) 7.2 % (0.0-7.3) 08/10/17 10:35 Eos % (Auto) 0.0 % (0.0-4.3) 08/10/17 10:35 Baso % (Auto) 0.4 % (0.0-1.8) 08/10/17 10:35 Lymph # 2.1 K/mm3 (1.2-5.4) 08/10/17 10:35 [place] # 0.5 K/mm3 (0.0-0.8) 08/10/17 10:35 Eos # 0.0 K/mm3 (0.0-0.4) 08/10/17 10:35 Baso # 0.0 K/mm3 (0.0-0.1) 08/10/17 10:35 Seg Neutrophils % 64.1 % (40.0-70.0) 08/10/17 10:35 Seg Neutrophils # 4.7 K/mm3 (1.8-7.7) 08/10/17 10:35 PT 15.0 Sec. (12.2-14.9) H 08/07/17 15:48 INR 1.12 (0.87-1.13) 08/07/17 15:48 D-Dimer 886 ng/mlDDU (0-234) H 08/07/17 15:48 Sodium 144 mmol/L (137-145) 08/10/17 10:35 Potassium 2.6 mmol/L (3.6-5.0) L* D 08/10/17 10:35 Chloride 103.3 mmol/L (98-107) 08/10/17 10:35 Carbon Dioxide 27 mmol/L (22-30) 08/10/17 10:35 Anion Gap 16 mmol/L 08/10/17 10:35 BUN 5 mg/dL (7-17) L 08/10/17 10:35 Creatinine < 0.2 mg/dL (0.7-1.2) L 08/10/17 10:35 Estimated GFR > 60 ml/min 08/10/17 10:35 BUN/Creatinine Ratio 25 % 08/10/17 10:35 Glucose 130 mg/dL (65-100) H 08/10/17 10:35 POC Glucose 75 (70-105) 08/08/17 12:02 Calcium 8.2 mg/dL (8.4-10.2) L D 08/10/17 10:35 Magnesium 1.50 mg/dL (1.7-2.3) L 08/07/17 15:48 Total Bilirubin 0.20 mg/dL (0.1-1.2) 08/07/17 15:48 AST 20 units/L (5-40) 08/07/17 15:48 ALT 22 units/L (7-56) 08/07/17 15:48 Alkaline Phosphatase 132 units/L (35-129) H 08/07/17 15:48 Total Protein 7.3 g/dL (6.3-8.2) 08/07/17 15:48 Albumin 4.0 g/dL (3.9-5) 08/07/17 15:48 Albumin/Globulin Ratio 1.2 % 08/07/17 15:48 TSH 2.100 mlU/mL (0.270-4.200) 08/07/17 15:48 Free T4 1.20 ng/dL (0.76-1.46) 08/07/17 15:48 Phenytoin 1.0 ug/mL (10.0-20.0) L 08/07/17 15:48 <ODILON LINDO - Last Filed: 08/10/17 15:16> Assessment and Plan Assessment and plan: 36 YO Female Longterm Resident with Cerebral Palsy, Quadraplegia, 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 Pt unable to provide history. Pt history taken from ED staff as well as SNF staff. Pt initially seen and evaluated in ED for dislodged PEG tube. Patient was seen by ER physician overnight and had PEG-tube replaced. Patient initially refused to go back to the [facility]. Pt seen and evaluated by social work this a.m. was finally agreeable to discharge. While awaiting transport the patient had a witnessed seizure episode. Pt seen and reevaluated and found to have status epilepticus Seizure disorder Patient on Vimpat aspiration precautions, supportive care, neuro checks. Hypernatremia Resolved Will continue to monitor Hypokalemia Replenished with KCL Will continue to monitor Spastic hemiplegia secondary to cerebral palsy Pain control, supportive care DVT prophylaxis lovenox Awaiting placement in [facility] History Interval history: Patient alert and awake in bed. Denies CP, SOB, N/V Hospitalist Physical - Constitutional Vitals: Temp Pulse Resp BP Pulse Ox 97.7 F 97 H 20 146/103 98 08/10/17 07:33 08/10/17 07:33 08/10/17 07:33 08/10/17 07:33 08/10/17 07:33 General appearance: Present: no acute distress - EENT Eyes: Present: PERRL, EOM intact ENT: hearing intact, clear oral mucosa, poor dentition - Neck Neck: Present: supple, normal ROM - Respiratory Respiratory effort: normal Respiratory: bilateral: CTA - Cardiovascular Rhythm: regular Heart Sounds: Present: S1 & S2 - Extremities Extremities: no ischemia, No edema Peripheral Pulses: within normal limits - Abdominal General gastrointestinal: soft, non-tender - Integumentary Integumentary: Present: clear, warm, dry - Psychiatric Psychiatric: appropriate mood/affect, cooperative - Neurologic Neurologic: CNII-XII intact, moves all extremities - Allied Health Allied health notes reviewed: nursing Results - Labs CBC & Chem 7: 08/10/17 10:35 08/10/17 10:35 Labs: Laboratory Last Values WBC 7.3 K/mm3 (4.5-11.0) 08/10/17 10:35 RBC 4.10 M/mm3 (3.65-5.03) 08/10/17 10:35 Hgb 10.6 gm/dl (10.1-14.3) D 08/10/17 10:35 Hct 32.9 % (30.3-42.9) D 08/10/17 10:35 MCV 80 fl (79-97) 08/10/17 10:35 MCH 26 pg (28-32) L 08/10/17 10:35 MCHC 32 % (30-34) 08/10/17 10:35 RDW 15.9 % (13.2-15.2) H 08/10/17 10:35 Plt Count 229 K/mm3 (140-440) 08/10/17 10:35 Lymph % (Auto) 28.3 % (13.4-35.0) 08/10/17 10:35 [place] % (Auto) 7.2 % (0.0-7.3) 08/10/17 10:35 Eos % (Auto) 0.0 % (0.0-4.3) 08/10/17 10:35 Baso % (Auto) 0.4 % (0.0-1.8) 08/10/17 10:35 Lymph # 2.1 K/mm3 (1.2-5.4) 08/10/17 10:35 [place] # 0.5 K/mm3 (0.0-0.8) 08/10/17 10:35 Eos # 0.0 K/mm3 (0.0-0.4) 08/10/17 10:35 Baso # 0.0 K/mm3 (0.0-0.1) 08/10/17 10:35 Seg Neutrophils % 64.1 % (40.0-70.0) 08/10/17 10:35 Seg Neutrophils # 4.7 K/mm3 (1.8-7.7) 08/10/17 10:35 PT 15.0 Sec. (12.2-14.9) H 08/07/17 15:48 INR 1.12 (0.87-1.13) 08/07/17 15:48 D-Dimer 886 ng/mlDDU (0-234) H 08/07/17 15:48 Sodium 144 mmol/L (137-145) 08/10/17 10:35 Potassium 2.6 mmol/L (3.6-5.0) L* D 08/10/17 10:35 Chloride 103.3 mmol/L (98-107) 08/10/17 10:35 Carbon Dioxide 27 mmol/L (22-30) 08/10/17 10:35 Anion Gap 16 mmol/L 08/10/17 10:35 BUN 5 mg/dL (7-17) L 08/10/17 10:35 Creatinine < 0.2 mg/dL (0.7-1.2) L 08/10/17 10:35 Estimated GFR > 60 ml/min 08/10/17 10:35 BUN/Creatinine Ratio 25 % 08/10/17 10:35 Glucose 130 mg/dL (65-100) H 08/10/17 10:35 POC Glucose 75 (70-105) 08/08/17 12:02 Calcium 8.2 mg/dL (8.4-10.2) L D 08/10/17 10:35 Magnesium 1.50 mg/dL (1.7-2.3) L 08/07/17 15:48 Total Bilirubin 0.20 mg/dL (0.1-1.2) 08/07/17 15:48 AST 20 units/L (5-40) 08/07/17 15:48 ALT 22 units/L (7-56) 08/07/17 15:48 Alkaline Phosphatase 132 units/L (35-129) H 08/07/17 15:48 Total Protein 7.3 g/dL (6.3-8.2) 08/07/17 15:48 Albumin 4.0 g/dL (3.9-5) 08/07/17 15:48 Albumin/Globulin Ratio 1.2 % 08/07/17 15:48 TSH 2.100 mlU/mL (0.270-4.200) 08/07/17 15:48 Free T4 1.20 ng/dL (0.76-1.46) 08/07/17 15:48 Phenytoin 1.0 ug/mL (10.0-20.0) L 08/07/17 15:48
[2017-08-10] MEDS: NACL 0.9% 1000 ML 1,000 ML IV SCH (17:21)
[2017-08-11] MEDS: ALUM-MAG HYDROX-SIMETH 200-200-20MG/5ML PO SCH ×6 (02:14→21:52)
[2017-08-11] MEDS: NACL 0.9% 1000 ML 1,000 ML IV SCH ×3 (02:28→22:13)
[2017-08-11] MEDS: TYLENOL PO PRN ×2 (04:12→22:13)
[2017-08-11 06:34] LABS: Basophils % (Auto) 0.3 % (0.0-1.8); Hematocrit 35.3 % (30.3-42.9); Hemoglobin 11.5 gm/dl (10.1-14.3); Mean Corpuscular HGB Conc 33 % (30-34); Mean Corpuscular Hemoglobin 26 pg (28-32); Mean Corpuscular Volume 80 fl (79-97); Red Blood Count 4.42 M/mm3 (3.65-5.03); Red Cell Distribution Width 15.9 % (13.2-15.2)
[2017-08-11 06:36] LABS: Platelet Count 155 K/mm3 (140-440)
[2017-08-11 06:48] LABS: Albumin 2.9 g/dL (3.9-5); Albumin/Globulin Ratio 0.9 %; Alkaline Phosphatase 88 units/L (35-129); BUN/Creatinine Ratio 25; Bilirubin,Total < 0.20 mg/dL (0.1-1.2); Blood Urea Nitrogen 5 mg/dL (7-17); Calcium 8.2 mg/dL (8.4-10.2); Carbon Dioxide 26 mmol/L (22-30); Chloride 104.2 mmol/L (98-107); Glucose 121 mg/dL (65-100); Sodium 139 mmol/L (137-145); Total Protein 6.1 g/dL (6.3-8.2)
[2017-08-11 07:30] LABS: Alanine Aminotransferase 19 units/L (7-56); Anion Gap 13 mmol/L; Potassium 3.9 mmol/L (3.6-5.0)
[2017-08-11] MEDS: LOVENOX SUB-Q SCH (09:44)
[2017-08-11] MEDS: FLORANEX PO SCH (09:45)
[2017-08-11] MEDS: VIMPAT PO SCH ×2 (09:45→21:53)
[2017-08-11] MEDS: PROTONIX FEEDTUBE SCH (09:45)
[2017-08-11] MEDS: NEURONTIN PO SCH ×3 (09:46→21:53)
[2017-08-11] MEDS: FOLVITE PO SCH (09:46)
--- NOTE | 2017-08-11 11:47 | Progress Note ---
Addendum entered and electronically signed by THIEN MEADOWS MD 08/11/17 16: 21: Correction, doesn't move all extremities Original Note: <THIEN MEADOWS - Last Filed: 08/11/17 13:18> Assessment and Plan Assessment and plan: I saw and evaluated the patient. I agree with the findings and the plan of care as documented in the PA's note Hospitalist Physical - Constitutional Vitals: Temp Pulse Resp BP Pulse Ox 99.2 F 105 H 19 124/85 97 08/11/17 04:46 08/11/17 04:46 08/11/17 04:46 08/11/17 04:46 08/11/17 08:30 Results - Labs CBC & Chem 7: 08/11/17 05:37 08/11/17 05:37 Labs: Laboratory Last Values WBC 7.0 K/mm3 (4.5-11.0) 08/11/17 05:37 RBC 4.42 M/mm3 (3.65-5.03) 08/11/17 05:37 Hgb 11.5 gm/dl (10.1-14.3) 08/11/17 05:37 Hct 35.3 % (30.3-42.9) 08/11/17 05:37 MCV 80 fl (79-97) 08/11/17 05:37 MCH 26 pg (28-32) L 08/11/17 05:37 MCHC 33 % (30-34) 08/11/17 05:37 RDW 15.9 % (13.2-15.2) H 08/11/17 05:37 Plt Count 155 K/mm3 (140-440) 08/11/17 05:37 Lymph % (Auto) 41.4 % (13.4-35.0) H 08/11/17 05:37 [place] % (Auto) 6.7 % (0.0-7.3) 08/11/17 05:37 Eos % (Auto) 0.0 % (0.0-4.3) 08/11/17 05:37 Baso % (Auto) 0.3 % (0.0-1.8) 08/11/17 05:37 Lymph # 2.9 K/mm3 (1.2-5.4) 08/11/17 05:37 [place] # 0.5 K/mm3 (0.0-0.8) 08/11/17 05:37 Eos # 0.0 K/mm3 (0.0-0.4) 08/11/17 05:37 Baso # 0.0 K/mm3 (0.0-0.1) 08/11/17 05:37 Seg Neutrophils % 51.6 % (40.0-70.0) 08/11/17 05:37 Seg Neutrophils # 3.6 K/mm3 (1.8-7.7) 08/11/17 05:37 PT 15.0 Sec. (12.2-14.9) H 08/07/17 15:48 INR 1.12 (0.87-1.13) 08/07/17 15:48 D-Dimer 886 ng/mlDDU (0-234) H 08/07/17 15:48 Sodium 139 mmol/L (137-145) 08/11/17 05:37 Potassium 3.9 mmol/L (3.6-5.0) D 08/11/17 05:37 Chloride 104.2 mmol/L (98-107) 08/11/17 05:37 Carbon Dioxide 26 mmol/L (22-30) 08/11/17 05:37 Anion Gap 13 mmol/L 08/11/17 05:37 BUN 5 mg/dL (7-17) L 08/11/17 05:37 Creatinine < 0.2 mg/dL (0.7-1.2) L 08/11/17 05:37 Estimated GFR > 60 ml/min 08/11/17 05:37 BUN/Creatinine Ratio 25 % 08/11/17 05:37 Glucose 121 mg/dL (65-100) H 08/11/17 05:37 POC Glucose 75 (70-105) 08/08/17 12:02 Calcium 8.2 mg/dL (8.4-10.2) L 08/11/17 05:37 Magnesium 1.50 mg/dL (1.7-2.3) L 08/07/17 15:48 Total Bilirubin < 0.20 mg/dL (0.1-1.2) 08/11/17 05:37 AST 31 units/L (5-40) 08/11/17 05:37 ALT 19 units/L (7-56) 08/11/17 05:37 Alkaline Phosphatase 88 units/L (35-129) 08/11/17 05:37 Total Protein 6.1 g/dL (6.3-8.2) L 08/11/17 05:37 Albumin 2.9 g/dL (3.9-5) L 08/11/17 05:37 Albumin/Globulin Ratio 0.9 % 08/11/17 05:37 TSH 2.100 mlU/mL (0.270-4.200) 08/07/17 15:48 Free T4 1.20 ng/dL (0.76-1.46) 08/07/17 15:48 Phenytoin 1.0 ug/mL (10.0-20.0) L 08/07/17 15:48 <ODILON LINDO - Last Filed: 08/12/17 09:04> Assessment and Plan Assessment and plan: 36 YO Female Usp Resident with Cerebral Palsy, Quadraplegia, 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 Pt unable to provide history. Pt history taken from ED staff as well as SNF staff. Pt initially seen and evaluated in ED for dislodged PEG tube. Patient was seen by ER physician overnight and had PEG-tube replaced. Patient initially refused to go back to the half-way. Pt seen and evaluated by social work this a.m. was finally agreeable to discharge. While awaiting transport the patient had a witnessed seizure episode. Pt seen and reevaluated and found to have status epilepticus Seizure disorder Patient on Vimpat aspiration precautions, supportive care, neuro checks. 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 Denies CP, SOB, N/V Hospitalist Physical - Constitutional Vitals: Temp Pulse Resp BP Pulse Ox 99.2 F 105 H 19 124/85 97 08/11/17 04:46 08/11/17 04:46 08/11/17 04:46 08/11/17 04:46 08/11/17 08:30 General appearance: Present: no acute distress - EENT Eyes: Present: PERRL, EOM intact ENT: hearing intact, clear oral mucosa, poor dentition - Neck Neck: Present: supple, normal ROM - Respiratory Respiratory effort: normal Respiratory: bilateral: CTA - Cardiovascular Rhythm: regular Heart Sounds: Present: S1 & S2 - Extremities Extremities: no ischemia, No edema Peripheral Pulses: within normal limits - Abdominal General gastrointestinal: soft, non-tender - Integumentary Integumentary: Present: clear, warm, dry - Psychiatric Psychiatric: appropriate mood/affect, cooperative - Neurologic Neurologic: CNII-XII intact - Allied Health Allied health notes reviewed: nursing Results - Labs CBC & Chem 7: 08/11/17 05:37 08/11/17 05:37 Labs: Laboratory Last Values WBC 7.0 K/mm3 (4.5-11.0) 08/11/17 05:37 RBC 4.42 M/mm3 (3.65-5.03) 08/11/17 05:37 Hgb 11.5 gm/dl (10.1-14.3) 08/11/17 05:37 Hct 35.3 % (30.3-42.9) 08/11/17 05:37 MCV 80 fl (79-97) 08/11/17 05:37 MCH 26 pg (28-32) L 08/11/17 05:37 MCHC 33 % (30-34) 08/11/17 05:37 RDW 15.9 % (13.2-15.2) H 08/11/17 05:37 Plt Count 155 K/mm3 (140-440) 08/11/17 05:37 Lymph % (Auto) 41.4 % (13.4-35.0) H 08/11/17 05:37 Billings % (Auto) 6.7 % (0.0-7.3) 08/11/17 05:37 Eos % (Auto) 0.0 % (0.0-4.3) 08/11/17 05:37 Baso % (Auto) 0.3 % (0.0-1.8) 08/11/17 05:37 Lymph # 2.9 K/mm3 (1.2-5.4) 08/11/17 05:37 [place] # 0.5 K/mm3 (0.0-0.8) 08/11/17 05:37 Eos # 0.0 K/mm3 (0.0-0.4) 08/11/17 05:37 Baso # 0.0 K/mm3 (0.0-0.1) 08/11/17 05:37 Seg Neutrophils % 51.6 % (40.0-70.0) 08/11/17 05:37 Seg Neutrophils # 3.6 K/mm3 (1.8-7.7) 08/11/17 05:37 PT 15.0 Sec. (12.2-14.9) H 08/07/17 15:48 INR 1.12 (0.87-1.13) 08/07/17 15:48 D-Dimer 886 ng/mlDDU (0-234) H 08/07/17 15:48 Sodium 139 mmol/L (137-145) 08/11/17 05:37 Potassium 3.9 mmol/L (3.6-5.0) D 08/11/17 05:37 Chloride 104.2 mmol/L (98-107) 08/11/17 05:37 Carbon Dioxide 26 mmol/L (22-30) 08/11/17 05:37 Anion Gap 13 mmol/L 08/11/17 05:37 BUN 5 mg/dL (7-17) L 08/11/17 05:37 Creatinine < 0.2 mg/dL (0.7-1.2) L 08/11/17 05:37 Estimated GFR > 60 ml/min 08/11/17 05:37 BUN/Creatinine Ratio 25 % 08/11/17 05:37 Glucose 121 mg/dL (65-100) H 08/11/17 05:37 POC Glucose 75 (70-105) 08/08/17 12:02 Calcium 8.2 mg/dL (8.4-10.2) L 08/11/17 05:37 Magnesium 1.50 mg/dL (1.7-2.3) L 08/07/17 15:48 Total Bilirubin < 0.20 mg/dL (0.1-1.2) 08/11/17 05:37 AST 31 units/L (5-40) 08/11/17 05:37 ALT 19 units/L (7-56) 08/11/17 05:37 Alkaline Phosphatase 88 units/L (35-129) 08/11/17 05:37 Total Protein 6.1 g/dL (6.3-8.2) L 08/11/17 05:37 Albumin 2.9 g/dL (3.9-5) L 08/11/17 05:37 Albumin/Globulin Ratio 0.9 % 08/11/17 05:37 TSH 2.100 mlU/mL (0.270-4.200) 08/07/17 15:48 Free T4 1.20 ng/dL (0.76-1.46) 08/07/17 15:48 Phenytoin 1.0 ug/mL (10.0-20.0) L 08/07/17 15:48
--- NOTE | 2017-08-11 16:21 | Discharge Summary ---
Providers - Providers Date of Admission: 08/07/17 19:44 Date of discharge: 08/11/17 Attending physician: THIEN MEADOWS 08/07/17 19:52 Consult to Dietitian/Nutrition [CONS] Routine Physician Instructions: Reason For Exam: Reason for Consult: Write/Manage Tube Feeding 08/08/17 13:17 Speech Therapy Evaluation and Treat [CONS] Routine Reason For Exam: swallow evaluation 08/09/17 09:51 Speech Therapy Evaluation and Treat [CONS] Routine Reason For Exam: [facility] 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 Pt unable to provide history. Pt history taken from ED staff as well as SNF staff. Pt initially seen and evaluated in ED for dislodged PEG tube. Patient was seen by ER physician overnight and had PEG-tube replaced. Patient initially refused to go back to the assisted. Pt seen and evaluated by social work this a.m. was finally agreeable to discharge. While awaiting transport the patient had a witnessed seizure episode. Pt seen and reevaluated and found to have status epilepticus Seizure disorder Patient on Vimpat aspiration precautions, supportive care, neuro checks. 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 Consult PT and OT Awaiting placement in assisted==>going back to [facility] Disposition: DC/[place]-03 SNF W [facility] CERT Time spent for discharge: 35 minutes Core Measure Documentation - Palliative Care Palliative Care/ Comfort Measures: Not Applicable - Core Measures Any of the following diagnoses?: none - VTE Discharge Requirements Deep Vein Thrombosis/Pulmonary Embolism Present on Admission: No Has pt received <5 days of overlap therapy or INR<2.0: No Anticoagulant overlap therapy prescribed at discharge: No Contraindication No Overlap Therapy order at DC: Not Indicated Exam - Physical Exam Narrative exam: GEN: Chronic debilitated NAD, AWAKE, ALERT, ORIENTATED 3 HEENT: NCAT, EOMI, PERRL, OP Clear NECK: supple, no adenopathy, no thyromegaly, no JVD, stoma of trach site CVS/HEART: RRR, NORMAL S1S2, NO JVD, pulses present bilaterally CHEST/LUNGS: CTA B, Symmetrical chest expansion, good air entry bilaterally GI/Abdomen: soft, PEG tube in place, nontender nondistended good bowel sounds, no guarding or rebound /Bladder: no suprapubic tenderness, no CVA or paraspinal tenderness EXT/Skin: no c/c/e, no obvious rash MSK: Contractures Neuro: CN 2-12 grossly intact, quadriplegic Psych: calm - Constitutional Vitals: Temp Pulse Resp BP Pulse Ox 99.5 F 107 H 20 136/97 100 08/11/17 15:24 08/11/17 15:24 08/11/17 15:24 08/11/17 15:24 08/11/17 15:24 General appearance: Present: no acute distress Plan Activity: up only with assistance, fall precautions, other (everyday screening for pressure/sacral wounds) Diet: per dietitian instruction (pureed diet, Nutren 1.5 at 65ml/hr from 19:00 to 7:00 daily) Durable Medical Equipment Needed Upon Discharge: Nebulizer Follow up with: PRIMARY CARE, [Primary Care Provider] - 7 Days Prescriptions: ALBUTEROL NEB's [Proventil 0.083% NEBS] 2.5 mg IH Q4HRT PRN #30 day PRN Reason: Shortness Of Breath ALPRAZolam [Xanax TAB] 0.25 mg FEEDTUBE TID PRN #30 day PRN Reason: Anxiety Antacid [Alum-Mag Hydrox-Simeth [id number]/[id number]] 15 ml PO Q4HR PRN #30 day PRN Reason: Indigestion Lacosamide [Vimpat] 100 mg PO BID #60 tablet Ondansetron [Zofran Oral Liq] 4 mg FEEDTUBE Q4H PRN #30 day PRN Reason: Nausea oxyCODONE [Roxicodone TAB] 5 mg FEEDTUBE Q4HR #30 tablet Sodium Bicarbonate 325 mg FEEDTUBE PRN PRN #30 tablet PRN Reason: For Clogged Feeding Tube
[2017-08-12] MEDS: ALUM-MAG HYDROX-SIMETH 200-200-20MG/5ML PO SCH ×2 (03:01→06:27)
[2017-08-12 07:43] VITALS: BP 135/99
[2017-08-12] MEDS: NEURONTIN PO SCH (08:06)
--- NOTE | 2017-08-12 08:58 | Event Note ---
Date: 08/12/17 Patient seen and examined. No new issues overnight. please see discharge charge summary dated 08/11/17. Will add additional instructions regarding frequent turning time of discharge 32 minutes
== END 2017-08-12 09:30 | DRG 393 ==
LOC: ED 12:45 → 3A 19:44
PROVIDERS: ADMIT Internal Medicine; ATTEND Internal Medicine
PROC: 0D20XUZ Change Feeding Device in Upper Intestinal Tract, External Approach (ICD-10-PCS; principal; 2017-08-07)
PROC: 5A09457 Assistance with Respiratory Ventilation, 24-96 Consecutive Hours, Continuous Positive Airway Pressure (ICD-10-PCS; 2017-08-07)
PROC: 5A09357 Assistance with Respiratory Ventilation, Less than 24 Consecutive Hours, Continuous Positive Airway Pressure (ICD-10-PCS; 2017-08-11)
DX: K94.23 Gastrostomy malfunction (principal); G80.0 Spastic quadriplegic cerebral palsy; E87.0 Hyperosmolality and hypernatremia; E44.0 Moderate protein-calorie malnutrition; G61.0 Guillain-Barre syndrome; J96.10 Chronic respiratory failure, unspecified whether with hypoxia or hypercapnia; G47.33 Obstructive sleep apnea (adult) (pediatric); G80.8 Other cerebral palsy; Z68.25 Body mass index [BMI] 25.0-25.9, adult; Z88.0 Allergy status to penicillin; E11.9 Type 2 diabetes mellitus without complications; E83.42 Hypomagnesemia; E87.6 Hypokalemia; G40.901 Epilepsy, unspecified, not intractable, with status epilepticus
CPT/HCPCS: 36415; 71010; 74000; 78582; 80048; 80053; 80185; 82962; 83735; 84439; 84443; 85025; 85379; 85610; 87040; 93005; 93010; 94660; 94760; 96361; 96365; 96366; 96367; 96368; 96375; 99285; A9540; A9558; J1165; J1170; J1650; J1956; J2060; J2405; J3475; J7030; J7050; Q0163; Q9963

== ENCOUNTER 2017-08-13 17:19 | Inpatient (IN) | payer MEDICAID ==
[2017-08-13] MEDS ORDERED: ZOFRAN IV ONE (17:49)
[2017-08-13] MEDS ORDERED: NACL 0.9% 1000 ML 1,000 ML IV ONE (17:49)
[2017-08-13 18:31] LABS: Basophils % (Auto) 1.3 % (0.0-1.8); Hematocrit 38.2 % (30.3-42.9); Hemoglobin 12.6 gm/dl (10.1-14.3); Mean Corpuscular HGB Conc 33 % (30-34); Mean Corpuscular Hemoglobin 27 pg (28-32); Mean Corpuscular Volume 81 fl (79-97); Platelet Count 239 K/mm3 (140-440); Red Blood Count 4.75 M/mm3 (3.65-5.03); Red Cell Distribution Width 16.1 % (13.2-15.2); White Blood Count 6.8 K/mm3 (4.5-11.0)
[2017-08-13 18:43] LABS: Alanine Aminotransferase 17 units/L (7-56); Albumin 3.2 g/dL (3.9-5); Alkaline Phosphatase 90 units/L (35-129); Anion Gap 17 mmol/L; BUN/Creatinine Ratio 30; Blood Urea Nitrogen 6 mg/dL (7-17); Carbon Dioxide 28 mmol/L (22-30); Glucose 93 mg/dL (65-100); Potassium 3.5 mmol/L (3.6-5.0); Sodium 141 mmol/L (137-145); Total Protein 6.3 g/dL (6.3-8.2)
--- NOTE | 2017-08-13 19:15 | Emergency Department Report ---
ED General Adult HPI - General Chief complaint: Nausea/Vomiting/Diarrhea Stated complaint: NAUSING/VOMITING Time Seen by Provider: 08/13/17 17:55 Source: patient, EMS Mode of arrival: Stretcher Limitations: Physical Limitation - History of Present Illness Initial comments: 37-year-old female history from [facility] patient with history of multiple medical problems including cerebral palsy seizures, movement disorder Here status post replacement of her G-tube stating that she is having persistent nausea vomiting him since they placed it with abdominal pain she was sent from [place] for evaluation of nausea vomiting -: Gradual Radiation: non-radiation Consistency: intermittent - Related Data Home Medications Medication Instructions Recorded Confirmed Last Taken Acetaminophen [Acetaminophen TAB] 640 mg PO Q6HR 08/07/17 08/07/17 Unknown Albuterol [Proventil Tab] 2.5 mg IH Q2HR PRN 08/07/17 08/07/17 Unknown Alum-Mag Hydroxide-Simeth Liq 15 ml PO Q4HR 08/07/17 08/07/17 Unknown Enoxaparin [Lovenox] 40 mg SQ QDAY 08/07/17 08/07/17 Unknown Esomeprazole Magnesium 40 mg FEEDTUBE QHS 08/07/17 08/07/17 Unknown Folic Acid [Folvite] 1 mg PO QDAY 08/07/17 08/07/17 Unknown Gabapentin [Neurontin] 400 mg PO TID 08/07/17 08/07/17 Unknown Hydrocortisone [Adv Allergy 1 applic TRANSDERMA BID 08/07/17 08/07/17 Unknown Collection Kit] Lactobacillus Acidophilus 1 each PO DAILY 08/07/17 08/07/17 Unknown [Acidophilus Lactobacilli] diphenhydrAMINE [Benadryl ORAL LIQ] 12.5 mg PO Q6HR PRN 08/07/17 08/07/17 Unknown Previous Rx's Medication Instructions Recorded Last Taken Type ALBUTEROL NEB's [Proventil 0.083% 2.5 mg IH Q4HRT PRN #30 day 08/11/17 Unknown Rx NEBS] ALPRAZolam [Xanax TAB] 0.25 mg FEEDTUBE TID PRN #30 day 08/11/17 Unknown Rx Acetaminophen [Acetaminophen TAB] 650 mg PO Q4H PRN #30 tablet 08/11/17 Unknown Rx Antacid [Alum-Mag Hydrox-Simeth 15 ml PO Q4HR PRN #30 day 08/11/17 Unknown Rx [id number]/5Ml] Lacosamide [Vimpat] 100 mg PO BID #60 tablet 08/11/17 Unknown Rx Lipase/Protease/Amylase [Pancreaze 1 each FEEDTUBE PRN PRN #30 capsule 08/11/17 Unknown Rx 10,500 Unit] Ondansetron [Zofran Oral Liq] 4 mg FEEDTUBE Q4H PRN #30 day 08/11/17 Unknown Rx Simple Syrup 15 ml FEEDTUBE PRN PRN #30 08/11/17 Unknown Rx oral.liqd Simple Syrup 30 ml FEEDTUBE PRN PRN #30 08/11/17 Unknown Rx oral.liqd Sodium Bicarbonate 325 mg FEEDTUBE PRN PRN #30 tablet 08/11/17 Unknown Rx oxyCODONE [Roxicodone TAB] 5 mg FEEDTUBE Q4HR #30 tablet 08/11/17 Unknown Rx Allergies Allergy/AdvReac Type Severity Reaction Status Date / Time Penicillins Allergy Hives Verified 08/06/17 17:38 ED Review of Systems ROS: Stated complaint: NAUSING/VOMITING Other details as noted in HPI Comment: All other systems reviewed and negative Constitutional: denies: diaphoresis Eyes: denies: vision change Respiratory: cough. denies: stridor Cardiovascular: denies: chest pain, palpitations Gastrointestinal: nausea, vomiting. denies: diarrhea, constipation, hematemesis Neurological: denies: numbness, paresthesias, abnormal gait ED Past Medical Hx - Past Medical History Hx Hypertension: Yes Hx Diabetes: Yes Hx Seizures: Yes Additional medical history: Guillan [place], Cerebral Palsy, Seizure Disorder, Morbid Obesity, Sleep Apnea, Electrolyte Disorder, Dysautomia, Sinus Tachycardia , Dyshphagia, Cervical DJD, Lumbar DJD, Encephalopathy, Yeast Dermatitis, HTNm Hyperlipidemia, Anemia, Leukocytosis, Renal Mass, Bladder Spasm, Hyponatremia, Hypokalemia, Hypomagnesemia, Depresion/Anxiety, Fibrosis of the Liver, Chronic Respiratory Failure, Psuedoseizure, Rosacea, Diarrhea, - Surgical History Additional Surgical History: Gastric Banding, saplingectomy, tracheostomy placement, pt unaware of other surgical history - Social History Smoking Status: Never Smoker Substance Use Type: None - Medications Home Medications: Home Medications Medication Instructions Recorded Confirmed Last Taken Type Acetaminophen [Acetaminophen TAB] 640 mg PO Q6HR 08/07/17 08/07/17 Unknown History Albuterol [Proventil Tab] 2.5 mg IH Q2HR PRN 08/07/17 08/07/17 Unknown History Alum-Mag Hydroxide-Simeth Liq 15 ml PO Q4HR 08/07/17 08/07/17 Unknown History Enoxaparin [Lovenox] 40 mg SQ QDAY 08/07/17 08/07/17 Unknown History Esomeprazole Magnesium 40 mg FEEDTUBE QHS 08/07/17 08/07/17 Unknown History Folic Acid [Folvite] 1 mg PO QDAY 08/07/17 08/07/17 Unknown History Gabapentin [Neurontin] 400 mg PO TID 08/07/17 08/07/17 Unknown History Hydrocortisone [Adv Allergy 1 applic TRANSDERMA BID 08/07/17 08/07/17 Unknown History Collection Kit] Lactobacillus Acidophilus 1 each PO DAILY 08/07/17 08/07/17 Unknown History [Acidophilus Lactobacilli] diphenhydrAMINE [Benadryl ORAL LIQ] 12.5 mg PO Q6HR PRN 08/07/17 08/07/17 Unknown History ALBUTEROL NEB's [Proventil 0.083% 2.5 mg IH Q4HRT PRN #30 day 08/11/17 Unknown Rx NEBS] ALPRAZolam [Xanax TAB] 0.25 mg FEEDTUBE TID PRN #30 day 08/11/17 Unknown Rx Acetaminophen [Acetaminophen TAB] 650 mg PO Q4H PRN #30 tablet 08/11/17 Unknown Rx Antacid [Alum-Mag Hydrox-Simeth 15 ml PO Q4HR PRN #30 day 08/11/17 Unknown Rx [id number]/5Ml] Lacosamide [Vimpat] 100 mg PO BID #60 tablet 08/11/17 Unknown Rx Lipase/Protease/Amylase [Pancreaze 1 each FEEDTUBE PRN PRN #30 capsule 08/11/17 Unknown Rx 10,500 Unit] Ondansetron [Zofran Oral Liq] 4 mg FEEDTUBE Q4H PRN #30 day 08/11/17 Unknown Rx Simple Syrup 15 ml FEEDTUBE PRN PRN #30 12/14/17 Unknown Rx oral.liqd Simple Syrup 30 ml FEEDTUBE PRN PRN #30 08/11/17 Unknown Rx oral.liqd Sodium Bicarbonate 325 mg FEEDTUBE PRN PRN #30 tablet 08/11/17 Unknown Rx oxyCODONE [Roxicodone TAB] 5 mg FEEDTUBE Q4HR #30 tablet 08/11/17 Unknown Rx ED Physical Exam - General Limitations: Physical Limitation General appearance: alert - Head Head exam: Present: atraumatic, normocephalic - Eye Eye exam: Present: PERRL, EOMI - ENT ENT exam: Present: normal exam - Neck Neck exam: Present: normal inspection. Absent: meningismus - Respiratory Respiratory exam: Present: rales. Absent: respiratory distress, stridor - Cardiovascular Cardiovascular Exam: Present: regular rate, normal heart sounds. Absent: rubs - GI/Abdominal GI/Abdominal exam: Present: soft, other (G-tube in place). Absent: guarding, rebound, mass - Back Exam Back exam: Present: normal inspection - Neurological Exam Neurological exam: Present: alert, other (nonfocal) - Psychiatric Psychiatric exam: Present: anxious ED Course Vital Signs 08/13/17 08/13/17 08/13/17 17:35 17:45 18:00 Temperature 98.8 F Pulse Rate 116 H 107 H 119 H Respiratory 18 22 17 Rate Blood Pressure 134/88 136/90 130/98 O2 Sat by Pulse 94 99 99 Oximetry 08/13/17 08/13/17 08/13/17 18:15 18:31 18:46 Temperature Pulse Rate 113 H 113 H Respiratory 22 21 18 Rate Blood Pressure 134/88 139/90 O2 Sat by Pulse 99 Oximetry 08/13/17 18:51 Temperature Pulse Rate 109 H Respiratory 20 Rate Blood Pressure 139/90 O2 Sat by Pulse Oximetry ED Medical Decision Making - Lab Data Result diagrams: 08/13/17 18:06 08/13/17 18:06 - Radiology Data Radiology results: report reviewed - Medical Decision Making Patient did have CT scan. Placement of G-tube was normal patient was noted to have aspiration pneumonia. I did discuss the case with the hospitalist service they will evaluate for admission. Cultures are pending patient was given antibiotics stable for admit Critical care attestation.: If time is entered above; I have spent that time in minutes in the direct care of this critically ill patient, excluding procedure time. ED Disposition Clinical Impression: Aspiration pneumonia Disposition: DC-09 OP ADMIT IP TO THIS HOSP Is pt being admited?: Yes Condition: Stable Instructions: Bacterial Pneumonia (ED) Time of Disposition: 21:26
--- NOTE | 2017-08-13 19:25 | Cat Scan Report ---
FINAL REPORT PROCEDURE: CT ABDOMEN WO CON TECHNIQUE: Computerized axial tomography of the abdomen was performed without intravenous contrast. This study is performed without intravascular contrast material and its sensitivity for abdominal and pelvic pathology, including neoplasms, inflammation, abscess, free fluid, thrombosis, arterial dissection and infarction, is reduced compared with a contrast enhanced study. HISTORY: g tube malfunciotion, n/v COMPARISON: G-tube study 08/07/2017 FINDINGS: Visualized lower thorax: Extensive airspace process with consolidative features in the posterior medial lower lung zones left greater than right. Possible aspiration. Liver: Heterogeneous lobular enlarged liver with peripheral nodularity of the parenchyma.. Spleen: Moderate splenomegaly.. Gallbladder and biliary system: Metallic clips in the gallbladder fossa prior cholecystectomy. Pancreas: Mild diffuse pancreatic atrophy.. Adrenals: Normal. Kidneys: Heterogeneous lobular kidneys. Calcifications upper pole right kidney measuring 3 millimeters left mid kidney 1 millimeter left upper kidney 2 millimeter 3 millimeter and 4 millimeter. Medium attenuated lesion in the right upper posterior kidney 1.4 centimeters. Mild left hydronephrosis and hydroureter of indeterminate etiology. CT scan did not extend to the pelvis to correlate with or rule out a possible distal left ureteral calculus. GI tract: Contrast within the stomach portions of small bowel. Gastric tube: Contrast fills the gastric tube which is seen in the fundus of the stomach. Contrast within stomach with slight reflux towards the EGJ. Contrast within portions of duodenum and proximal jejunum. No extravasation of contrast. IMPRESSION: Lung base pneumonia, possible aspiration pneumonia Rule obstructive calculus distal left ureter Recommend CT pelvis G-tube in place without extravasation
--- NOTE | 2017-08-13 19:31 | XRay Report ---
FINAL REPORT PROCEDURE: Portable supine AP chest x-ray TECHNIQUE: Chest radiograph portable supine view. CPT 89117 HISTORY: N/V COMPARISON: Prior chest x-ray 08/07/2017 FINDINGS: Left diaphragm is elevated. There is increasing consolidation retrocardiac region suggesting worsening atelectasis or pneumonia. Lungs remain hypoventilated. Right lung is clear. Heart size and pulmonary vasculature appear normal. No acute bone abnormality is seen. IMPRESSION: Lungs are hypoventilated. There is worsening consolidation retrocardiac region, left lower lobe suggesting worsening atelectasis or pneumonia.
[2017-08-13] MEDS ORDERED: FLAGYL 500 MG/100 ML 500 MG/100 ML BAG IV SCH (21:00)
--- NOTE | 2017-08-13 22:00 | History and Physical Report ---
History of Present Illness Date of examination: 08/13/17 Date of admission: 08/13/17 History of present illness: 36 YO Female Skilled Nursing Resident with Cerebral Palsy, Quadraplegia, Gullian Freeland Syndrome, Chronic Respiratory Failure, Seizure Disorder, presents to ED for evaluation. Pt patient was recently discharged on 08/12/17 ED for dislodged PEG tube. Patient was seen by ER physician overnight and had PEG-tube replaced. Patient have further complications during hospital stay with status epilepticus. Patient was later stabilized and discharged to [facility]. Patient reports that she has had persistent nausea vomiting and abdominal pain since her discharge from the hospital. The facility reports potential aspiration. No reports of fever, chills. Patient is a poor historian. Past History Past Medical History: No medical history, seizures, other (Guillan Fre[place], Cerebral Palsy, Seizure Disorder, Morbid Obesity, Sleep Apnea, Electrolyte Disorder, Dysautomia, Sinus Tachycardia, Dyshphagia, Cervical DJD, Lumbar DJD, Encephalopathy, Yeast Dermatitis, HTNm Hyperlipidemia, Anemia, Leukocytosis, Renal Mass, Bladder Spasm, Hyponatremia, Hypokalemia, Hypomagnesemia, Depresion/ Anxiety, Fibrosis of the Liver, Chronic Respiratory Failure, Psuedoseizure, Rosacea, Diarrhea,) Past Surgical History: Other (Gastric Banding, Salpingectomy, Tracheostomy) Social history: no significant social history Family history: no significant family history Medications and Allergies Allergies Allergy/AdvReac Type Severity Reaction Status Date / Time Penicillins Allergy Hives Verified 08/06/17 17:38 Home Medications Medication Instructions Recorded Confirmed Last Taken Type Acetaminophen [Acetaminophen TAB] 640 mg PO Q6HR 08/07/17 08/07/17 Unknown History Albuterol [Proventil Tab] 2.5 mg IH Q2HR PRN 08/07/17 08/07/17 Unknown History Alum-Mag Hydroxide-Simeth Liq 15 ml PO Q4HR 08/07/17 08/07/17 Unknown History Enoxaparin [Lovenox] 40 mg SQ QDAY 08/07/17 08/07/17 Unknown History Esomeprazole Magnesium 40 mg FEEDTUBE QHS 08/07/17 08/07/17 Unknown History Folic Acid [Folvite] 1 mg PO QDAY 08/07/17 08/07/17 Unknown History Gabapentin [Neurontin] 400 mg PO TID 08/07/17 08/07/17 Unknown History Hydrocortisone [Adv Allergy 1 applic TRANSDERMA BID 08/07/17 08/07/17 Unknown History Collection Kit] Lactobacillus Acidophilus 1 each PO DAILY 08/07/17 08/07/17 Unknown History [Acidophilus Lactobacilli] diphenhydrAMINE [Benadryl ORAL LIQ] 12.5 mg PO Q6HR PRN 08/07/17 08/07/17 Unknown History ALBUTEROL NEB's [Proventil 0.083% 2.5 mg IH Q4HRT PRN #30 day 08/11/17 Unknown Rx NEBS] ALPRAZolam [Xanax TAB] 0.25 mg FEEDTUBE TID PRN #30 day 08/11/17 Unknown Rx Acetaminophen [Acetaminophen TAB] 650 mg PO Q4H PRN #30 tablet 08/11/17 Unknown Rx Antacid [Alum-Mag Hydrox-Simeth 15 ml PO Q4HR PRN #30 day 08/11/17 Unknown Rx [id number]/5Ml] Lacosamide [Vimpat] 100 mg PO BID #60 tablet 08/11/17 Unknown Rx Lipase/Protease/Amylase [Pancreaze 1 each FEEDTUBE PRN PRN #30 capsule 08/11/17 Unknown Rx 10,500 Unit] Ondansetron [Zofran Oral Liq] 4 mg FEEDTUBE Q4H PRN #30 day 08/11/17 Unknown Rx Simple Syrup 15 ml FEEDTUBE PRN PRN #30 08/11/17 Unknown Rx oral.liqd Simple Syrup 30 ml FEEDTUBE PRN PRN #30 08/11/17 Unknown Rx oral.liqd Sodium Bicarbonate 325 mg FEEDTUBE PRN PRN #30 tablet 08/11/17 Unknown Rx oxyCODONE [Roxicodone TAB] 5 mg FEEDTUBE Q4HR #30 tablet 08/11/17 Unknown Rx Active Meds: Active Medications Metronidazole (Flagyl 500 Mg/100 Ml) 500 mg in 100 mls @ 200 mls/hr IV ONCE AYLEEN Review of Systems All systems: negative Exam - Constitutional Vitals: Temp Pulse Resp BP Pulse Ox 98.8 F 109 H 20 139/90 99 08/13/17 17:35 08/13/17 18:51 08/13/17 18:51 08/13/17 18:51 08/13/17 18:15 General appearance: Present: no acute distress, well-nourished - EENT Eyes: Present: PERRL ENT: hearing intact, clear oral mucosa - Neck Neck: Present: supple, normal ROM - Respiratory Respiratory effort: normal Respiratory: bilateral: CTA - Cardiovascular Heart Sounds: Present: S1 & S2. Absent: rub, click - Extremities Extremities: pulses symmetrical, No edema Peripheral Pulses: within normal limits - Abdominal General gastrointestinal: Present: soft, non-tender, non-distended, normal bowel sounds Female genitourinary: Present: normal - Integumentary Integumentary: Present: clear, warm, dry - Musculoskeletal Musculoskeletal: gait normal, strength equal bilaterally - Psychiatric Psychiatric: appropriate mood/affect, intact judgment & insight - Neurologic Neurologic: CNII-XII intact, moves all extremities Results - Labs CBC & Chem 7: 08/13/17 18:06 08/13/17 18:06 Labs: Laboratory Last Values WBC 6.8 K/mm3 (4.5-11.0) 08/13/17 18:06 RBC 4.75 M/mm3 (3.65-5.03) 08/13/17 18:06 Hgb 12.6 gm/dl (10.1-14.3) 08/13/17 18:06 Hct 38.2 % (30.3-42.9) 08/13/17 18:06 MCV 81 fl (79-97) 08/13/17 18:06 MCH 27 pg (28-32) L 08/13/17 18:06 MCHC 33 % (30-34) 08/13/17 18:06 RDW 16.1 % (13.2-15.2) H 08/13/17 18:06 Plt Count 239 K/mm3 (140-440) 08/13/17 18:06 Lymph % (Auto) 41.9 % (13.4-35.0) H 08/13/17 18:06 [place] % (Auto) 7.4 % (0.0-7.3) H 08/13/17 18:06 Eos % (Auto) 0.0 % (0.0-4.3) 08/13/17 18:06 Baso % (Auto) 1.3 % (0.0-1.8) 08/13/17 18:06 Lymph # 2.9 K/mm3 (1.2-5.4) 08/13/17 18:06 [place] # 0.5 K/mm3 (0.0-0.8) 08/13/17 18:06 Eos # 0.0 K/mm3 (0.0-0.4) 08/13/17 18:06 Baso # 0.1 K/mm3 (0.0-0.1) 08/13/17 18:06 Seg Neutrophils % 49.4 % (40.0-70.0) 08/13/17 18:06 Seg Neutrophils # 3.4 K/mm3 (1.8-7.7) 08/13/17 18:06 Sodium 141 mmol/L (137-145) 08/13/17 18:06 Potassium 3.5 mmol/L (3.6-5.0) L 08/13/17 18:06 Chloride 100.0 mmol/L (98-107) 08/13/17 18:06 Carbon Dioxide 28 mmol/L (22-30) 08/13/17 18:06 Anion Gap 17 mmol/L 08/13/17 18:06 BUN 6 mg/dL (7-17) L 08/13/17 18:06 Creatinine < 0.2 mg/dL (0.7-1.2) L 08/13/17 18:06 Estimated GFR > 60 ml/min 08/13/17 18:06 BUN/Creatinine Ratio 30 % 08/13/17 18:06 Glucose 93 mg/dL (65-100) 08/13/17 18:06 POC Glucose 82 (70-105) 08/13/17 18:08 Calcium 9.0 mg/dL (8.4-10.2) 08/13/17 18:06 Total Bilirubin 0.20 mg/dL (0.1-1.2) 08/13/17 18:06 AST 16 units/L (5-40) 08/13/17 18:06 ALT 17 units/L (7-56) 08/13/17 18:06 Alkaline Phosphatase 90 units/L (35-129) 08/13/17 18:06 Total Protein 6.3 g/dL (6.3-8.2) 08/13/17 18:06 Albumin 3.2 g/dL (3.9-5) L 08/13/17 18:06 Albumin/Globulin Ratio 1.0 % 08/13/17 18:06 Phenytoin 1.1 ug/mL (10.0-20.0) L 08/13/17 18:06 Assessment and Plan Assessment and plan: Persistent nausea and vomiting. GI consultation for further evaluation. Check KUB. Consider CT of abdomen. Seizure disorder Continue Vimpat aspiration precautions, supportive care, neuro checks. Spastic hemiplegia secondary to cerebral palsy Pain control, supportive care DVT prophylaxis lovenox Mild to moderate protein malnutrition Nutrition consult Gullian Freeland Syndrome Consult PT and OT
[2017-08-13] MEDS ORDERED: ZOFRAN ORAL LIQ FEEDTUBE PRN (22:04)
[2017-08-13] MEDS ORDERED: PANCREAZE DR 10,500 UNIT FEEDTUBE PRN (22:04)
[2017-08-13] MEDS ORDERED: SIMPLE SYRUP FEEDTUBE PRN ×2 (22:04)
[2017-08-13] MEDS ORDERED: SODIUM BICARBONATE FEEDTUBE PRN (22:04)
[2017-08-13] MEDS ORDERED: XANAX FEEDTUBE PRN (22:04)
[2017-08-13] MEDS ORDERED: BENADRYL PO PRN (22:04)
[2017-08-13] MEDS ORDERED: ALUM-MAG HYDROX-SIMETH 200-200-20MG/5ML PO PRN (22:04)
[2017-08-13] MEDS ORDERED: TYLENOL PO PRN ×3 (22:04→23:00)
[2017-08-13] MEDS ORDERED: DULCOLAX PR PRN (22:07)
[2017-08-13] MEDS ORDERED: MILK OF MAGNESIA PO PRN (22:07)
[2017-08-13] MEDS ORDERED: ZOFRAN IV PRN (22:07)
--- NOTE | 2017-08-14 | XRay Report ---
FINAL REPORT PROCEDURE: Supine portable AP abdomen TECHNIQUE: Abdominal radiograph, single supine AP view. HISTORY: Nausea and vomiting COMPARISON: Prior AP pelvis 08/07/2017 FINDINGS: Gastrostomy tube visualized left upper quadrant. Suture lines are seen in the left upper quadrant. There is some oral contrast in a loop of bowel in the right side of the abdomen. Nonspecific bowel gas pattern. No extravasated oral contrast visualized. No free air is seen. No masses are detected. Nonspecific bowel gas pattern present. There appears to be a small suture line visualized in the right lower quadrant medially. IMPRESSION: Gastrostomy tube in place. Oral contrast is visualized in a loop of bowel in the right side of the abdomen. No extravasation or leakage of contrast is seen. Postsurgical changes visualize left upper quadrant. Nonspecific bowel gas pattern is present.
[2017-08-14] MEDS: PROTONIX FEEDTUBE SCH ×2 (00:37→21:24)
[2017-08-14] MEDS ORDERED: FLAGYL 500 MG/100 ML 500 MG/100 ML BAG IV ONE (02:00)
[2017-08-14 04:03] LABS: Bacteria,Urine 1+ /HPF (Negative); Bilirubin,Urine NEG (Negative); Blood,Urine NEG (Negative); Granular Casts,Urine 14 /LPF; Ketones,Urine NEG (Negative); Leukocyte Esterase,Urine NEG (Negative); Mucus,Urine 1+ /HPF; Nitrite,Urine NEG (Negative); Protein,Urine <15 mg/dL mg/dL (Negative); Urobilinogen,Urine < 2.0 mg/dL (<2.0)
[2017-08-14] MEDS: TYLENOL PO SCH ×2 (06:00)
[2017-08-14] MEDS ORDERED: TYLENOL PO PRN (06:43)
[2017-08-14 07:24] LABS: Basophils % (Auto) 0.8 % (0.0-1.8); Hematocrit 36.7 % (30.3-42.9); Hemoglobin 12.1 gm/dl (10.1-14.3); Mean Corpuscular HGB Conc 33 % (30-34); Mean Corpuscular Hemoglobin 27 pg (28-32); Mean Corpuscular Volume 80 fl (79-97); Platelet Count 220 K/mm3 (140-440); Red Blood Count 4.58 M/mm3 (3.65-5.03)
[2017-08-14 07:37] LABS: Anion Gap 16 mmol/L; BUN/Creatinine Ratio 25; Blood Urea Nitrogen 5 mg/dL (7-17); Calcium 9.1 mg/dL (8.4-10.2); Carbon Dioxide 28 mmol/L (22-30); Chloride 100.5 mmol/L (98-107); Glucose 103 mg/dL (65-100); Potassium 3.8 mmol/L (3.6-5.0); Sodium 141 mmol/L (137-145)
--- NOTE | 2017-08-14 09:07 | Progress Note ---
Assessment and Plan Assessment and plan: --Aspiration pneumonia; closely monitor PEG feeds, aspiration precautions, IV antibiotics, follow cultures --Persistent nausea and vomiting; supportive care, antiemetics, IV fluids, hold PEG tubes Follow GI evaluation and recommendations --Possible obstructive calculus distal left ureter Check renal ultrasound, renal function is normal --h/o Seizure disorder Continue Vimpat, aspiration precautions, neuro checks. --Spastic hemiplegia secondary to cerebral palsy Pain control, supportive care --DVT prophylaxis ,lovenox --Moderate protein calorie malnutrition; Nutrition consult --h/o Gullian [place] Syndrome Consult PT and OT Closely monitor the patient and adjust management as needed History Interval history: Patient seen and examined in her room and medical records reviewed No new events reported by the nursing staff Patient is anxious to eat, reports that she takes oral that sometimes Admitted with aspiration pneumonia and nausea vomiting Hospitalist Physical - Constitutional Vitals: Temp Pulse Resp BP Pulse Ox 98.9 F 121 H 20 132/99 96 08/14/17 07:37 08/14/17 07:37 08/14/17 07:37 08/14/17 07:37 08/14/17 07:37 General appearance: Present: no acute distress, well-nourished - EENT Eyes: Present: PERRL, EOM intact - Neck Neck: Present: supple, normal ROM - Respiratory Respiratory effort: normal Respiratory: bilateral: diminished, rhonchi, negative: rales, wheezing - Cardiovascular Rhythm: regular Heart Sounds: Present: S1 & S2 - Extremities Extremities: no ischemia Extremity abnormal: edema - Abdominal General gastrointestinal: soft, non-tender, non-distended, normal bowel sounds, other (PEG tube in place) - Integumentary Integumentary: Present: clear, warm - Psychiatric Psychiatric: appropriate mood/affect, cooperative - Neurologic Neurologic: other (spastic hemiplegia) Results - Labs CBC & Chem 7: 08/14/17 06:55 08/14/17 06:55 Labs: Laboratory Last Values WBC 6.0 K/mm3 (4.5-11.0) 08/14/17 06:55 RBC 4.58 M/mm3 (3.65-5.03) 08/14/17 06:55 Hgb 12.1 gm/dl (10.1-14.3) 08/14/17 06:55 Hct 36.7 % (30.3-42.9) 08/14/17 06:55 MCV 80 fl (79-97) 08/14/17 06:55 MCH 27 pg (28-32) L 08/14/17 06:55 MCHC 33 % (30-34) 08/14/17 06:55 RDW 16.0 % (13.2-15.2) H 08/14/17 06:55 Plt Count 220 K/mm3 (140-440) 08/14/17 06:55 Lymph % (Auto) 38.7 % (13.4-35.0) H 08/14/17 06:55 [place] % (Auto) 8.9 % (0.0-7.3) H 08/14/17 06:55 Eos % (Auto) 0.0 % (0.0-4.3) 08/14/17 06:55 Baso % (Auto) 0.8 % (0.0-1.8) 08/14/17 06:55 Lymph # 2.3 K/mm3 (1.2-5.4) 08/14/17 06:55 [place] # 0.5 K/mm3 (0.0-0.8) 08/14/17 06:55 Eos # 0.0 K/mm3 (0.0-0.4) 08/14/17 06:55 Baso # 0.0 K/mm3 (0.0-0.1) 08/14/17 06:55 Seg Neutrophils % 51.6 % (40.0-70.0) 08/14/17 06:55 Seg Neutrophils # 3.1 K/mm3 (1.8-7.7) 08/14/17 06:55 Sodium 141 mmol/L (137-145) 08/14/17 06:55 Potassium 3.8 mmol/L (3.6-5.0) 08/14/17 06:55 Chloride 100.5 mmol/L (98-107) 08/14/17 06:55 Carbon Dioxide 28 mmol/L (22-30) 08/14/17 06:55 Anion Gap 16 mmol/L 08/14/17 06:55 BUN 5 mg/dL (7-17) L 08/14/17 06:55 Creatinine < 0.2 mg/dL (0.7-1.2) L 08/14/17 06:55 Estimated GFR > 60 ml/min 08/14/17 06:55 BUN/Creatinine Ratio 25 % 08/14/17 06:55 Glucose 103 mg/dL (65-100) H 08/14/17 06:55 POC Glucose 96 (70-105) 08/14/17 06:32 Calcium 9.1 mg/dL (8.4-10.2) 08/14/17 06:55 Total Bilirubin 0.20 mg/dL (0.1-1.2) 08/13/17 18:06 AST 16 units/L (5-40) 08/13/17 18:06 ALT 17 units/L (7-56) 08/13/17 18:06 Alkaline Phosphatase 90 units/L (35-129) 08/13/17 18:06 Total Protein 6.3 g/dL (6.3-8.2) 08/13/17 18:06 Albumin 3.2 g/dL (3.9-5) L 08/13/17 18:06 Albumin/Globulin Ratio 1.0 % 08/13/17 18:06 Urine Color Yellow (Yellow) 08/14/17 03:38 Urine Turbidity Hazy (Clear) 08/14/17 03:38 Urine pH 7.0 (5.0-7.0) 08/14/17 03:38 Ur Specific [place] 1.011 (1.003-1.030) 08/14/17 03:38 Urine Protein <15 mg/dl mg/dL (Negative) 08/14/17 03:38 Urine Glucose (UA) Neg mg/dL (Negative) 08/14/17 03:38 Urine Ketones Neg mg/dL (Negative) 08/14/17 03:38 Urine Blood Neg (Negative) 08/14/17 03:38 Urine Nitrite Neg (Negative) 08/14/17 03:38 Urine Bilirubin Neg (Negative) 08/14/17 03:38 Urine Urobilinogen < 2.0 mg/dL (<2.0) 08/14/17 03:38 Ur Leukocyte Esterase Neg (Negative) 08/14/17 03:38 Urine WBC (Auto) 3.0 /HPF (0.0-6.0) 08/14/17 03:38 Urine RBC (Auto) 2.0 /HPF (0.0-6.0) 08/14/17 03:38 U Epithel Cells (Auto) < 1.0 /HPF (0-13.0) 08/14/17 03:38 Urine Bacteria (Auto) 1+ /HPF (Negative) 08/14/17 03:38 Amorphous Crystals 1+ 08/14/17 03:38 Hyaline Casts 1 /LPF 08/14/17 03:38 Granular Casts 14 /LPF 08/14/17 03:38 Urine Mucus 1+ /HPF 08/14/17 03:38 Phenytoin 1.1 ug/mL (10.0-20.0) L 08/13/17 18:06
[2017-08-14] MEDS: LOVENOX SUB-Q SCH (10:02)
[2017-08-14] MEDS: VIMPAT PO SCH ×2 (10:23→21:24)
[2017-08-14] MEDS: FOLVITE PO SCH (10:23)
[2017-08-14] MEDS: NEURONTIN PO SCH ×3 (10:24→21:24)
[2017-08-14] MEDS: FLORANEX PO SCH (10:28)
[2017-08-14] MEDS: LEVAQUIN 750MG/150ML 750 MG/150 ML BAG IV SCH (11:20)
[2017-08-14] MEDS: PERCOCET 5/325 PO PRN (14:37)
--- NOTE | 2017-08-14 15:12 | Gastroenterology Consultation ---
History of Present Illness - Reason for Consult Consult date: 08/14/17 nausea/vomiting Requesting physician: MACY CRUZ - History of Present Illness Ms Kulkarni is a 37 yo wf with h/o cerebral palsy and GBS who presents from rehab with nausea/vomiting. Patient diagnosed with GBS ~6 months ago per patient's mother. She has a G-tube which was placed at the time of diagnosis for oropharyngeal dysphagia. She had an episode of n/v 2 nights ago which led to ED admission. She reports continued nausea and regurgitation, no emesis episodes since prior to arrival. She denies bowel habit changes (multiple bm's daily since being on tube feeds). + reflux/regurgitation symptoms. Past History Past Medical History: No medical history, seizures, other (Guillan [place], Cerebral Palsy, Seizure Disorder, Morbid Obesity, Sleep Apnea, Electrolyte Disorder, Dysautomia, Sinus Tachycardia, Dyshphagia, Cervical DJD, Lumbar DJD, Encephalopathy, Yeast Dermatitis, HTNm Hyperlipidemia, Anemia, Leukocytosis, Renal Mass, Bladder Spasm, Hyponatremia, Hypokalemia, Hypomagnesemia, Depresion/ Anxiety, Fibrosis of the Liver, Chronic Respiratory Failure, Psuedoseizure, Rosacea, Diarrhea,) Past Surgical History: Other (Gastric Banding, Salpingectomy, Tracheostomy) Social history: no significant social history Family history: no significant family history Medications and Allergies Allergies Allergy/AdvReac Type Severity Reaction Status Date / Time Penicillins Allergy Hives Verified 08/06/17 17:38 Home Medications Medication Instructions Recorded Confirmed Last Taken Type Acetaminophen [Acetaminophen TAB] 640 mg PO Q6HR 08/07/17 08/14/17 Unknown History Albuterol [Proventil Tab] 2.5 mg IH Q2HR PRN 08/07/17 08/14/17 Unknown History Alum-Mag Hydroxide-Simeth Liq 15 ml PO Q4HR 08/07/17 08/14/17 Unknown History Enoxaparin [Lovenox] 40 mg SQ QDAY 08/07/17 08/14/17 Unknown History Esomeprazole Magnesium 40 mg FEEDTUBE QHS 08/07/17 08/14/17 Unknown History Folic Acid [Folvite] 1 mg PO QDAY 08/07/17 08/14/17 Unknown History Gabapentin [Neurontin] 400 mg PO TID 08/07/17 08/14/17 Unknown History Hydrocortisone [Adv Allergy 1 applic TRANSDERMA BID 08/07/17 08/14/17 Unknown History Collection Kit] Lactobacillus Acidophilus 1 each PO DAILY 08/07/17 08/14/17 Unknown History [Acidophilus Lactobacilli] diphenhydrAMINE [Benadryl ORAL LIQ] 12.5 mg PO Q6HR PRN 08/07/17 08/14/17 Unknown History ALBUTEROL NEB's [Proventil 0.083% 2.5 mg IH Q4HRT PRN #30 day 08/11/17 08/14/17 Unknown Rx NEBS] ALPRAZolam [Xanax TAB] 0.25 mg FEEDTUBE TID PRN #30 day 08/11/17 08/14/17 Unknown Rx Acetaminophen [Acetaminophen TAB] 650 mg PO Q4H PRN #30 tablet 08/11/17 Unknown Rx Antacid [Alum-Mag Hydrox-Simeth 15 ml PO Q4HR PRN #30 day 08/11/17 08/14/17 Unknown Rx [id number]/5Ml] Lacosamide [Vimpat] 100 mg PO BID #60 tablet 08/11/17 08/14/17 Unknown Rx Lipase/Protease/Amylase [Pancreaze 1 each FEEDTUBE PRN PRN #30 capsule 08/11/17 08/14/17 Unknown Rx 10,500 Unit] Ondansetron [Zofran Oral Liq] 4 mg FEEDTUBE Q4H PRN #30 day 08/11/17 08/14/17 Unknown Rx Simple Syrup 15 ml FEEDTUBE PRN PRN #30 08/11/17 08/14/17 Unknown Rx oral.liqd Simple Syrup 30 ml FEEDTUBE PRN PRN #30 08/11/17 08/14/17 Unknown Rx oral.liqd Sodium Bicarbonate 325 mg FEEDTUBE PRN PRN #30 tablet 08/11/17 08/14/17 Unknown Rx oxyCODONE [Roxicodone TAB] 5 mg FEEDTUBE Q4HR #30 tablet 08/11/17 08/14/17 Unknown Rx Active Meds: Active Medications Acetaminophen (Tylenol) 640 mg PO Q6H PRN PRN Reason: PAIN,FEVER>101.5/[place] Al Hydrox/Mg Hydrox/Simethicone (Alum-Mag Hydrox-Simeth 680-691-16gu/5ml) 15 ml PO Q4H PRN PRN Reason: Indigestion Albuterol (Proventil) 2.5 mg IH Q4HRT PRN PRN Reason: Shortness Of Breath Alprazolam (Xanax) 0.25 mg FEEDTUBE TID PRN PRN Reason: Anxiety Lipase/Protease/Amylase (Pancreaze Dr 10,500 Unit) 1 each FEEDTUBE PRN PRN PRN Reason: For Clogged Feeding Tube Bisacodyl (Dulcolax) 10 mg [place] QDAY PRN PRN Reason: Constipation unrelieved by MOM Diphenhydramine HCl (Benadryl) 12.5 mg PO Q6H PRN PRN Reason: Allergy Symptoms Enoxaparin Sodium (Lovenox) 40 mg SUB-Q QDAY [facility] Last Admin: 08/14/17 10:02 Dose: 40 mg Folic Acid (Folvite) 1 mg PO QDAY [facility] [place] Last Admin: 08/14/17 10:23 Dose: 1 mg Gabapentin (Neurontin) 400 mg PO TID [facility] [place] Last Admin: 08/14/17 14:36 Dose: 400 mg Levofloxacin/Dextrose (Levaquin 750mg/150ml) 750 mg in 150 mls @ 100 mls/hr IV Q24HR [facility] [place] PRN Reason: Protocol Last Admin: 08/14/17 11:20 Dose: 100 mls/hr Lacosamide (Vimpat) 100 mg PO BID [facility] [place] Last Admin: 08/14/17 10:23 Dose: 100 mg Lactobacillus Acidophilus (Floranex) 1 each PO DAILY [facility] [place] Last Admin: 08/14/17 10:28 Dose: 1 each Magnesium Hydroxide (Milk Of Magnesia) 30 ml PO Q4H PRN PRN Reason: Constipation Ondansetron HCl (Zofran Oral Liq) 4 mg FEEDTUBE Q4H PRN PRN Reason: Nausea Ondansetron HCl (Zofran) 4 mg IV Q8H PRN PRN Reason: N/V unrelieved by Reglan Oxycodone/Acetaminophen (Percocet 5/325) 1 tab PO Q8H PRN PRN Reason: Pain, Moderate (4-6) Last Admin: 08/14/17 14:37 Dose: 1 tab Pantoprazole (Protonix) 40 mg FEEDTUBE QHS AYLEEN Last Admin: 08/14/17 00:37 Dose: Not Given Simple Syrup (Simple Syrup) 15 ml FEEDTUBE PRN PRN PRN Reason: Hypoglycemia Simple Syrup (Simple Syrup) 30 ml FEEDTUBE PRN PRN PRN Reason: Hypoglycemia Sodium Bicarbonate (Sodium Bicarbonate) 325 mg FEEDTUBE PRN PRN PRN Reason: For Clogged Feeding Tube Review of Systems - Review of Systems All systems: negative Constitutional: weakness Gastrointestinal: nausea Musculoskeletal: muscle weakness Neurological: sensory deficit Psychiatric: depression Exam - Exam Narrative Exam: Gen: NAD, chronically ill appearing Head: nc/at Mouth: dry mucous membranes, poor dentition Neck: supple, no JVD CV: RRR Lungs: CTAB, non labored Abd: soft, nt, nd, + g tube Ext: contracted, no edema Neuro: oriented x 3 Psych: appropriate mood and affect - Constitutional Vital Signs: Temp Pulse Resp BP Pulse Ox 99.7 F H 132 H 22 131/84 94 08/14/17 11:53 08/14/17 11:53 08/14/17 11:53 08/14/17 11:53 08/14/17 11:53 - Labs CBC & Chem 7: 08/14/17 06:55 08/14/17 06:55 Lab Results: Laboratory Results - last 24 hr 08/13/17 08/13/17 08/13/17 18:06 18:06 18:06 WBC 6.8 RBC 4.75 Hgb 12.6 Hct 38.2 MCV 81 MCH 27 L MCHC 33 RDW 16.1 H Plt Count 239 Lymph % (Auto) 41.9 H [place] % (Auto) 7.4 H Eos % (Auto) 0.0 Baso % (Auto) 1.3 Lymph # 2.9 [place] # 0.5 Eos # 0.0 Baso # 0.1 Seg Neutrophils % 49.4 Seg Neutrophils # 3.4 Sodium 141 Potassium 3.5 L Chloride 100.0 Carbon Dioxide 28 Anion Gap 17 BUN 6 L Creatinine < 0.2 L Estimated GFR > 60 BUN/Creatinine Ratio 30 Glucose 93 POC Glucose Calcium 9.0 Total Bilirubin 0.20 AST 16 ALT 17 Alkaline Phosphatase 90 Total Protein 6.3 Albumin 3.2 L Albumin/Globulin Ratio 1.0 Urine Color Urine Turbidity Urine pH Ur Specific [place] Urine Protein Urine Glucose (UA) Urine Ketones Urine Blood Urine Nitrite Urine Bilirubin Urine Urobilinogen Ur Leukocyte Esterase Urine WBC (Auto) Urine RBC (Auto) U Epithel Cells (Auto) Urine Bacteria (Auto) Amorphous Crystals Hyaline Casts Granular Casts Urine Mucus Phenytoin 1.1 L 08/13/17 08/14/17 08/14/17 18:08 03:38 06:32 WBC RBC Hgb Hct MCV MCH MCHC RDW Plt Count Lymph % (Auto) [place] % (Auto) Eos % (Auto) Baso % (Auto) Lymph # [place] # Eos # Baso # Seg Neutrophils % Seg Neutrophils # Sodium Potassium Chloride Carbon Dioxide Anion Gap BUN Creatinine Estimated GFR BUN/Creatinine Ratio Glucose POC Glucose 82 96 Calcium Total Bilirubin AST ALT Alkaline Phosphatase Total Protein Albumin Albumin/Globulin Ratio Urine Color Yellow Urine Turbidity Hazy Urine pH 7.0 Ur Specific [place] 1.011 Urine Protein <15 mg/dl Urine Glucose (UA) Neg Urine Ketones Neg Urine Blood Neg Urine Nitrite Neg Urine Bilirubin Neg Urine Urobilinogen < 2.0 Ur Leukocyte Esterase Neg Urine WBC (Auto) 3.0 Urine RBC (Auto) 2.0 U Epithel Cells (Auto) < 1.0 Urine Bacteria (Auto) 1+ Amorphous Crystals 1+ Hyaline Casts 1 Granular Casts 14 Urine Mucus 1+ Phenytoin 08/14/17 08/14/17 06:55 06:55 WBC 6.0 RBC 4.58 Hgb 12.1 Hct 36.7 MCV 80 MCH 27 L MCHC 33 RDW 16.0 H Plt Count 220 Lymph % (Auto) 38.7 H [place] % (Auto) 8.9 H Eos % (Auto) 0.0 Baso % (Auto) 0.8 Lymph # 2.3 [place] # 0.5 Eos # 0.0 Baso # 0.0 Seg Neutrophils % 51.6 Seg Neutrophils # 3.1 Sodium 141 Potassium 3.8 Chloride 100.5 Carbon Dioxide 28 Anion Gap 16 BUN 5 L Creatinine < 0.2 L Estimated GFR > 60 BUN/Creatinine Ratio 25 Glucose 103 H POC Glucose Calcium 9.1 Total Bilirubin AST ALT Alkaline Phosphatase Total Protein Albumin Albumin/Globulin Ratio Urine Color Urine Turbidity Urine pH Ur Specific [place] Urine Protein Urine Glucose (UA) Urine Ketones Urine Blood Urine Nitrite Urine Bilirubin Urine Urobilinogen Ur Leukocyte Esterase Urine WBC (Auto) Urine RBC (Auto) U Epithel Cells (Auto) Urine Bacteria (Auto) Amorphous Crystals Hyaline Casts Granular Casts Urine Mucus Phenytoin Assessment and Plan 1. nausea/vomiting - episode prior to admission. + nausea but no further emesis. CT shows possible kidney stone; KUB and CT w/o obstructive signs of ileus. symptoms may be 2/2 kidney stone, sepsis (PNA on imaging), gastroenteritis; possible gerd component as well. -PPI daily -cont supportive care -monitor on tube feeds
[2017-08-14] MEDS ORDERED: SIMPLE SYRUP FEEDTUBE PRN ×2 (18:17)
[2017-08-14] MEDS ORDERED: PANCREAZE DR 10,500 UNIT FEEDTUBE PRN (18:17)
[2017-08-14] MEDS ORDERED: SODIUM BICARBONATE FEEDTUBE PRN (18:17)
[2017-08-15] MEDS: PERCOCET 5/325 PO PRN ×3 (04:02→21:46)
[2017-08-15 06:13] LABS: Anion Gap 15 mmol/L; BUN/Creatinine Ratio 30; Blood Urea Nitrogen 6 mg/dL (7-17); Calcium 9.5 mg/dL (8.4-10.2); Carbon Dioxide 32 mmol/L (22-30); Chloride 100.9 mmol/L (98-107); Glucose 90 mg/dL (65-100); Potassium 3.7 mmol/L (3.6-5.0); Sodium 144 mmol/L (137-145)
[2017-08-15] MEDS: LOVENOX SUB-Q SCH (09:48)
[2017-08-15] MEDS: LEVAQUIN 750MG/150ML 750 MG/150 ML BAG IV SCH (09:48)
[2017-08-15] MEDS: NEURONTIN PO SCH ×3 (09:49→21:46)
[2017-08-15] MEDS: FLORANEX PO SCH (09:49)
[2017-08-15] MEDS: VIMPAT PO SCH ×2 (09:50→21:47)
[2017-08-15] MEDS: FOLVITE PO SCH (09:51)
--- NOTE | 2017-08-15 14:39 | Progress Note ---
Assessment and Plan Assessment and plan: --Persistent nausea and vomiting; supportive care, antiemetics, IV fluids, hold PEG tubes GI evaluated the patient, advised to restart tube feeding closely monitor --Aspiration pneumonia; closely monitor PEG feeds, aspiration precautions, IV antibiotics, follow cultures --Possible obstructive calculus distal left ureter Check renal ultrasound, outpatient urology evaluation if needed ,renal function is normal --h/o Seizure disorder Continue Vimpat, aspiration precautions, neuro checks. --Spastic hemiplegia secondary to cerebral palsy Pain control, supportive care --DVT prophylaxis ,lovenox --Moderate protein calorie malnutrition; Nutrition consult --h/o Gullian [place] Syndrome Consult PT and OT Closely monitor the patient and adjust management as needed Possible discharge in 1-2 days if stable History Interval history: Since seen and evaluated medical records reviewed No new events reported by the nursing staff Patient feels slightly better complaints of tiredness Vital signs reviewed Hospitalist Physical - Constitutional Vitals: Temp Pulse Resp BP Pulse Ox 98.5 F 113 H 18 111/75 98 08/15/17 04:39 08/15/17 04:39 08/15/17 04:39 08/15/17 04:39 08/15/17 09:41 General appearance: Present: no acute distress, well-nourished - EENT Eyes: Present: PERRL, EOM intact - Neck Neck: Present: supple, normal ROM - Respiratory Respiratory effort: normal Respiratory: bilateral: diminished, rhonchi, negative: rales, wheezing - Cardiovascular Rhythm: regular Heart Sounds: Present: S1 & S2 - Extremities Extremities: no ischemia, No edema Peripheral Pulses: within normal limits - Abdominal General gastrointestinal: soft, non-tender, non-distended, normal bowel sounds - Integumentary Integumentary: Present: clear, warm - Psychiatric Psychiatric: appropriate mood/affect - Neurologic Neurologic: other (spastic hemiplegia) Results - Labs CBC & Chem 7: 08/14/17 06:55 08/15/17 05:18 Labs: Laboratory Last Values WBC 6.0 K/mm3 (4.5-11.0) 08/14/17 06:55 RBC 4.58 M/mm3 (3.65-5.03) 08/14/17 06:55 Hgb 12.1 gm/dl (10.1-14.3) 08/14/17 06:55 Hct 36.7 % (30.3-42.9) 08/14/17 06:55 MCV 80 fl (79-97) 08/14/17 06:55 MCH 27 pg (28-32) L 08/14/17 06:55 MCHC 33 % (30-34) 08/14/17 06:55 RDW 16.0 % (13.2-15.2) H 08/14/17 06:55 Plt Count 220 K/mm3 (140-440) 08/14/17 06:55 Lymph % (Auto) 38.7 % (13.4-35.0) H 08/14/17 06:55 [place] % (Auto) 8.9 % (0.0-7.3) H 08/14/17 06:55 Eos % (Auto) 0.0 % (0.0-4.3) 08/14/17 06:55 Baso % (Auto) 0.8 % (0.0-1.8) 08/14/17 06:55 Lymph # 2.3 K/mm3 (1.2-5.4) 08/14/17 06:55 [place] # 0.5 K/mm3 (0.0-0.8) 08/14/17 06:55 Eos # 0.0 K/mm3 (0.0-0.4) 08/14/17 06:55 Baso # 0.0 K/mm3 (0.0-0.1) 08/14/17 06:55 Seg Neutrophils % 51.6 % (40.0-70.0) 08/14/17 06:55 Seg Neutrophils # 3.1 K/mm3 (1.8-7.7) 08/14/17 06:55 Sodium 144 mmol/L (137-145) 08/15/17 05:18 Potassium 3.7 mmol/L (3.6-5.0) 08/15/17 05:18 Chloride 100.9 mmol/L (98-107) 08/15/17 05:18 Carbon Dioxide 32 mmol/L (22-30) H 08/15/17 05:18 Anion Gap 15 mmol/L 08/15/17 05:18 BUN 6 mg/dL (7-17) L 08/15/17 05:18 Creatinine < 0.2 mg/dL (0.7-1.2) L 08/15/17 05:18 Estimated GFR > 60 ml/min 08/15/17 05:18 BUN/Creatinine Ratio 30 % 08/15/17 05:18 Glucose 90 mg/dL (65-100) 08/15/17 05:18 POC Glucose 111 (70-105) H 08/15/17 11:32 Calcium 9.5 mg/dL (8.4-10.2) 08/15/17 05:18 Total Bilirubin 0.20 mg/dL (0.1-1.2) 08/13/17 18:06 AST 16 units/L (5-40) 08/13/17 18:06 ALT 17 units/L (7-56) 08/13/17 18:06 Alkaline Phosphatase 90 units/L (35-129) 08/13/17 18:06 Total Protein 6.3 g/dL (6.3-8.2) 08/13/17 18:06 Albumin 3.2 g/dL (3.9-5) L 08/13/17 18:06 Albumin/Globulin Ratio 1.0 % 08/13/17 18:06 Urine Color Yellow (Yellow) 08/14/17 03:38 Urine Turbidity Hazy (Clear) 08/14/17 03:38 Urine pH 7.0 (5.0-7.0) 08/14/17 03:38 Ur Specific [place] 1.011 (1.003-1.030) 08/14/17 03:38 Urine Protein <15 mg/dl mg/dL (Negative) 08/14/17 03:38 Urine Glucose (UA) Neg mg/dL (Negative) 08/14/17 03:38 Urine Ketones Neg mg/dL (Negative) 08/14/17 03:38 Urine Blood Neg (Negative) 08/14/17 03:38 Urine Nitrite Neg (Negative) 08/14/17 03:38 Urine Bilirubin Neg (Negative) 08/14/17 03:38 Urine Urobilinogen < 2.0 mg/dL (<2.0) 08/14/17 03:38 Ur Leukocyte Esterase Neg (Negative) 08/14/17 03:38 Urine WBC (Auto) 3.0 /HPF (0.0-6.0) 08/14/17 03:38 Urine RBC (Auto) 2.0 /HPF (0.0-6.0) 08/14/17 03:38 U Epithel Cells (Auto) < 1.0 /HPF (0-13.0) 08/14/17 03:38 Urine Bacteria (Auto) 1+ /HPF (Negative) 08/14/17 03:38 Amorphous Crystals 1+ 08/14/17 03:38 Hyaline Casts 1 /LPF 08/14/17 03:38 Granular Casts 14 /LPF 08/14/17 03:38 Urine Mucus 1+ /HPF 08/14/17 03:38 Phenytoin 1.1 ug/mL (10.0-20.0) L 08/13/17 18:06
[2017-08-15] MEDS: NACL 0.9% 1000 ML 1,000 ML IV SCH (15:38)
[2017-08-15] MEDS ORDERED: SODIUM BICARBONATE FEEDTUBE PRN (16:49)
[2017-08-15] MEDS ORDERED: PANCREAZE DR 10,500 UNIT FEEDTUBE PRN (16:49)
[2017-08-15] MEDS ORDERED: SIMPLE SYRUP FEEDTUBE PRN ×2 (16:49)
--- NOTE | 2017-08-15 19:45 | Gastroenterology Progress Note ---
Assessment and Plan nausea/vomiting - restart tube feeds and monitor. ppi daily. hold off on further gi work-up if tolerates tube feeds Subjective Date of service: 08/15/17 Principal diagnosis: nausea/vomiting Interval history: pt reports some mild nausea, no emesis episodes. denies abd pain. Objective - Constitutional Vitals: Temp Pulse Resp BP Pulse Ox 98.5 F 113 H 18 111/75 97 08/15/17 04:39 08/15/17 04:39 08/15/17 04:39 08/15/17 04:39 08/15/17 19:27 General appearance: no acute distress - Respiratory Respiratory effort: normal Respiratory: bilateral: CTA - Cardiovascular Rhythm: regular Heart Sounds: Present: S1 & S2 - Gastrointestinal General gastrointestinal: Present: soft, non-tender, non-distended - Psychiatric Psychiatric: depressed - Labs CBC & Chem 7: 08/14/17 06:55 08/15/17 05:18 Labs: Laboratory Results - last 24 hr 08/14/17 08/15/17 08/15/17 21:41 05:18 06:30 Sodium 144 Potassium 3.7 Chloride 100.9 Carbon Dioxide 32 H Anion Gap 15 BUN 6 L Creatinine < 0.2 L Estimated GFR > 60 BUN/Creatinine Ratio 30 Glucose 90 POC Glucose 88 88 Calcium 9.5 08/15/17 08/15/17 11:32 16:03 Sodium Potassium Chloride Carbon Dioxide Anion Gap BUN Creatinine Estimated GFR BUN/Creatinine Ratio Glucose POC Glucose 111 H 73 Calcium
[2017-08-15] MEDS: PROTONIX FEEDTUBE SCH (21:45)
[2017-08-16] MEDS: NACL 0.9% 1000 ML 1,000 ML IV SCH ×2 (04:07→16:05)
[2017-08-16 06:44] LABS: Creatine Kinase MB < 1.0 ng/mL (0.0-4.0)
[2017-08-16 06:45] LABS: Creatine Kinase 17 units/L (30-135)
[2017-08-16] MEDS: PERCOCET 5/325 PO PRN (10:19)
[2017-08-16] MEDS: VIMPAT PO SCH ×2 (10:21→22:00)
[2017-08-16] MEDS: LEVAQUIN 750MG/150ML 750 MG/150 ML BAG IV SCH (10:21)
[2017-08-16] MEDS: LOVENOX SUB-Q SCH (10:21)
[2017-08-16] MEDS: PROVENTIL IH PRN (11:38)
[2017-08-16] MEDS: FLORANEX PO SCH (12:02)
[2017-08-16] MEDS: NEURONTIN PO SCH ×3 (12:02→20:00)
[2017-08-16] MEDS: FOLVITE PO SCH (12:02)
--- NOTE | 2017-08-16 12:45 | XRay Report ---
G-TUBE STUDY History: Leaking at G-tube site. Findings: A charging board operator film of the abdomen is presented to demonstrates a PEG tube in the left upper quadrant. A second image was obtained after injection of oral contrast through the PEG tube. Oral contrast is identified in the distal stomach and multiple proximal small bowel loops. There is no obvious extravasation or obstruction on this exam. Impression: The PEG tube terminates in the stomach. See above.
--- NOTE | 2017-08-16 19:00 | Progress Note ---
Assessment and Plan Assessment and plan: --Malfunctioning PEG; GI following --Persistent nausea and vomiting; improved,supportive care, antiemetics, IV fluids, --Aspiration pneumonia; closely monitor PEG feeds, aspiration precautions, IV antibiotics, follow cultures --h/o Seizure disorder Continue Vimpat, aspiration precautions, neuro checks. --Spastic hemiplegia secondary to cerebral palsy Pain control, supportive care --DVT prophylaxis ,lovenox --Moderate protein calorie malnutrition; Nutrition consult --h/o Gullian [place] Syndrome Consult PT and OT Closely monitor the patient and adjust management as needed Follow GI recommendations. d/c planning per case management History Interval history: Patient seen and evaluated, medical records reviewed c/o gen weakness nurse reports leaking PEG GI notified Hospitalist Physical - Constitutional Vitals: Temp Pulse Resp BP Pulse Ox 98.5 F 107 H 18 108/77 94 08/16/17 16:19 08/16/17 16:19 08/16/17 16:19 08/16/17 16:19 08/16/17 16:19 General appearance: Present: no acute distress, well-nourished - EENT Eyes: Present: PERRL, EOM intact - Neck Neck: Present: supple, normal ROM - Respiratory Respiratory effort: normal Respiratory: bilateral: diminished, rhonchi, negative: rales, wheezing - Cardiovascular Rhythm: regular Heart Sounds: Present: S1 & S2 - Extremities Extremities: no ischemia, No edema Peripheral Pulses: within normal limits - Abdominal General gastrointestinal: soft, non-tender, non-distended, normal bowel sounds - Integumentary Integumentary: Present: clear, warm - Psychiatric Psychiatric: appropriate mood/affect, cooperative - Neurologic Neurologic: other (spastic paralysis) Results - Labs CBC & Chem 7: 08/14/17 06:55 08/15/17 05:18 Labs: Laboratory Last Values WBC 6.0 K/mm3 (4.5-11.0) 08/14/17 06:55 RBC 4.58 M/mm3 (3.65-5.03) 08/14/17 06:55 Hgb 12.1 gm/dl (10.1-14.3) 08/14/17 06:55 Hct 36.7 % (30.3-42.9) 08/14/17 06:55 MCV 80 fl (79-97) 08/14/17 06:55 MCH 27 pg (28-32) L 08/14/17 06:55 MCHC 33 % (30-34) 08/14/17 06:55 RDW 16.0 % (13.2-15.2) H 08/14/17 06:55 Plt Count 220 K/mm3 (140-440) 08/14/17 06:55 Lymph % (Auto) 38.7 % (13.4-35.0) H 08/14/17 06:55 [place] % (Auto) 8.9 % (0.0-7.3) H 08/14/17 06:55 Eos % (Auto) 0.0 % (0.0-4.3) 08/14/17 06:55 Baso % (Auto) 0.8 % (0.0-1.8) 08/14/17 06:55 Lymph # 2.3 K/mm3 (1.2-5.4) 08/14/17 06:55 [place] # 0.5 K/mm3 (0.0-0.8) 08/14/17 06:55 Eos # 0.0 K/mm3 (0.0-0.4) 08/14/17 06:55 Baso # 0.0 K/mm3 (0.0-0.1) 08/14/17 06:55 Seg Neutrophils % 51.6 % (40.0-70.0) 08/14/17 06:55 Seg Neutrophils # 3.1 K/mm3 (1.8-7.7) 08/14/17 06:55 Sodium 144 mmol/L (137-145) 08/15/17 05:18 Potassium 3.7 mmol/L (3.6-5.0) 08/15/17 05:18 Chloride 100.9 mmol/L (98-107) 08/15/17 05:18 Carbon Dioxide 32 mmol/L (22-30) H 08/15/17 05:18 Anion Gap 15 mmol/L 08/15/17 05:18 BUN 6 mg/dL (7-17) L 08/15/17 05:18 Creatinine < 0.2 mg/dL (0.7-1.2) L 08/15/17 05:18 Estimated GFR > 60 ml/min 08/15/17 05:18 BUN/Creatinine Ratio 30 % 08/15/17 05:18 Glucose 90 mg/dL (65-100) 08/15/17 05:18 POC Glucose 84 (70-105) 08/16/17 11:37 Calcium 9.5 mg/dL (8.4-10.2) 08/15/17 05:18 Total Bilirubin 0.20 mg/dL (0.1-1.2) 08/13/17 18:06 AST 16 units/L (5-40) 08/13/17 18:06 ALT 17 units/L (7-56) 08/13/17 18:06 Alkaline Phosphatase 90 units/L (35-129) 08/13/17 18:06 Total Creatine Kinase 17 units/L (30-135) L 08/16/17 06:05 CK-MB (CK-2) < 1.0 ng/mL (0.0-4.0) 08/16/17 06:05 CK-MB (CK-2) Rel Index 5.8 (0-4) H 08/16/17 06:05 Troponin T < 0.010 ng/mL (0.00-0.029) 08/16/17 06:05 Total Protein 6.3 g/dL (6.3-8.2) 08/13/17 18:06 Albumin 3.2 g/dL (3.9-5) L 08/13/17 18:06 Albumin/Globulin Ratio 1.0 % 08/13/17 18:06 Urine Color Yellow (Yellow) 08/14/17 03:38 Urine Turbidity Hazy (Clear) 08/14/17 03:38 Urine pH 7.0 (5.0-7.0) 08/14/17 03:38 Ur Specific [place] 1.011 (1.003-1.030) 08/14/17 03:38 Urine Protein <15 mg/dl mg/dL (Negative) 08/14/17 03:38 Urine Glucose (UA) Neg mg/dL (Negative) 08/14/17 03:38 Urine Ketones Neg mg/dL (Negative) 08/14/17 03:38 Urine Blood Neg (Negative) 08/14/17 03:38 Urine Nitrite Neg (Negative) 08/14/17 03:38 Urine Bilirubin Neg (Negative) 08/14/17 03:38 Urine Urobilinogen < 2.0 mg/dL (<2.0) 08/14/17 03:38 Ur Leukocyte Esterase Neg (Negative) 08/14/17 03:38 Urine WBC (Auto) 3.0 /HPF (0.0-6.0) 08/14/17 03:38 Urine RBC (Auto) 2.0 /HPF (0.0-6.0) 08/14/17 03:38 U Epithel Cells (Auto) < 1.0 /HPF (0-13.0) 08/14/17 03:38 Urine Bacteria (Auto) 1+ /HPF (Negative) 08/14/17 03:38 Amorphous Crystals 1+ 08/14/17 03:38 Hyaline Casts 1 /LPF 08/14/17 03:38 Granular Casts 14 /LPF 08/14/17 03:38 Urine Mucus 1+ /HPF 08/14/17 03:38 Phenytoin 1.1 ug/mL (10.0-20.0) L 08/13/17 18:06
[2017-08-16] MEDS: PROTONIX FEEDTUBE SCH (22:00)
[2017-08-16] MEDS: MORPHINE IV PRN (22:43)
[2017-08-17] MEDS ORDERED: ATIVAN IV PRN (00:19)
[2017-08-17] MEDS: D5/0.45NS 1,000 ML IV SCH ×2 (02:51→18:07)
[2017-08-17 06:33] LABS: Basophils % (Auto) 0.8 % (0.0-1.8); Eosinophils % (Auto) 0.1 % (0.0-4.3); Hematocrit 30.4 % (30.3-42.9); Hemoglobin 9.9 gm/dl (10.1-14.3); Mean Corpuscular HGB Conc 33 % (30-34); Mean Corpuscular Hemoglobin 27 pg (28-32); Mean Corpuscular Volume 82 fl (79-97); Platelet Count 140 K/mm3 (140-440); Red Cell Distribution Width 16.3 % (13.2-15.2); White Blood Count 5.1 K/mm3 (4.5-11.0)
[2017-08-17 06:49] LABS: BUN/Creatinine Ratio 30; Blood Urea Nitrogen 6 mg/dL (7-17); Calcium 7.5 mg/dL (8.4-10.2); Carbon Dioxide 24 mmol/L (22-30); Chloride 98.5 mmol/L (98-107); Glucose 462 mg/dL (65-100); Potassium 3.1 mmol/L (3.6-5.0); Sodium 135 mmol/L (137-145)
[2017-08-17 06:51] LABS: Anion Gap 16 mmol/L
[2017-08-17] MEDS: NEURONTIN PO SCH ×3 (08:31→23:23)
--- NOTE | 2017-08-17 08:54 | Gastroenterology Progress Note ---
Assessment and Plan 1.N/V -KUB and CT w/o bostructive signs of ileus -G tube study yesterday shoed PEG tube terminates in the stomach -clinically pt is improving with still mild nausea present but no vomiting or abd pain -restart tube feeds per nutrition recommendations -continue daily PPI -keep PEG tube site clean and dry -continue supportive care -no recommendations for an endoscopic evaluation at this time unless symptoms persist -will sign off, please re-consult if needed Subjective Date of service: 08/17/17 Principal diagnosis: nausea/vomiting Interval history: No acute distress. Mild nausea present but denies abd pain or vomiting. Tube feeding on hold. Objective - Constitutional Vitals: Temp Pulse Resp BP Pulse Ox 99.7 F H 116 H 20 123/89 96 08/17/17 07:43 08/17/17 07:43 08/17/17 07:43 08/17/17 07:43 08/17/17 07:43 General appearance: no acute distress, well-nourished - Respiratory Respiratory: bilateral: CTA - Cardiovascular Rhythm: other (tachycardia) Heart Sounds: Present: S1 & S2 - Gastrointestinal General gastrointestinal: Present: soft, non-tender, non-distended, normal bowel sounds, other (+PEG) - Labs CBC & Chem 7: 08/17/17 05:57 08/17/17 05:57 Labs: Laboratory Results - last 24 hr 08/16/17 08/16/17 08/16/17 11:37 16:23 21:27 WBC RBC Hgb Hct MCV MCH MCHC RDW Plt Count Lymph % (Auto) [place] % (Auto) Eos % (Auto) Baso % (Auto) Lymph # [place] # Eos # Baso # Seg Neutrophils % Seg Neutrophils # Sodium Potassium Chloride Carbon Dioxide Anion Gap BUN Creatinine Estimated GFR BUN/Creatinine Ratio Glucose POC Glucose 84 73 75 Calcium Magnesium 08/17/17 08/17/17 08/17/17 05:08 05:57 05:57 WBC 5.1 RBC 3.70 Hgb 9.9 L Hct 30.4 D MCV 82 MCH 27 L MCHC 33 RDW 16.3 H Plt Count 140 Lymph % (Auto) 41.5 H [place] % (Auto) 5.6 Eos % (Auto) 0.1 Baso % (Auto) 0.8 Lymph # 2.1 [place] # 0.3 Eos # 0.0 Baso # 0.0 Seg Neutrophils % 52.0 Seg Neutrophils # 2.6 Sodium 135 L D Potassium 3.1 L Chloride 98.5 Carbon Dioxide 24 D Anion Gap 16 BUN 6 L Creatinine < 0.2 L Estimated GFR > 60 BUN/Creatinine Ratio 30 Glucose 462 H POC Glucose 91 Calcium 7.5 L D Magnesium 1.40 L
[2017-08-17] MEDS: LOVENOX SUB-Q SCH (09:43)
[2017-08-17] MEDS: FLORANEX PO SCH (09:43)
[2017-08-17] MEDS: FOLVITE PO SCH (09:43)
[2017-08-17] MEDS ORDERED: MAGNESIUM SULFATE 3 GM in NACL 0.9% 100 ML IV ONE (09:44)
[2017-08-17] MEDS: VIMPAT PO SCH ×2 (09:44→23:24)
[2017-08-17] MEDS: PERCOCET 5/325 PO PRN (09:44)
[2017-08-17] MEDS: LEVAQUIN 750MG/150ML 750 MG/150 ML BAG IV SCH (10:02)
[2017-08-17] MEDS: MORPHINE IV PRN ×2 (11:05→18:14)
[2017-08-17] MEDS: K-DUR PO NR ×2 (11:12→11:13)
[2017-08-17] MEDS: PROVENTIL IH PRN (14:52)
--- NOTE | 2017-08-17 19:45 | Progress Note ---
Assessment and Plan Assessment and plan: --Malfunctioning PEG; now PEG is in place, GI evaluated the patient, resume tube feeding --Persistent nausea and vomiting; resolved --Aspiration pneumonia; closely monitor PEG feeds, aspiration precautions, continue antibiotics --h/o Seizure disorder; no new episodes continue current antiseizure medications --Spastic hemiplegia secondary to cerebral palsy supportive care --Moderate protein calorie malnutrition; Nutrition consult --h/o Gullian [place] Syndrome --DVT prophylaxis ,lovenox PT and OT DC planning per case management, possible SNF placement with hospice May DC in 1-2 days if stable History Interval history: Patient seen and evaluated medical records reviewed No new events reported by the nursing staff PEG tube is in place, GI recommended to resume tube feeding Patient has no new complaints Vital signs reviewed Hospitalist Physical - Constitutional Vitals: Temp Pulse Resp BP Pulse Ox 98.2 F 127 H 18 117/72 96 08/17/17 15:24 08/17/17 15:24 08/17/17 15:24 08/17/17 15:24 08/17/17 15:24 General appearance: Present: no acute distress, well-nourished - EENT Eyes: Present: PERRL, EOM intact - Neck Neck: Present: supple, normal ROM - Respiratory Respiratory effort: normal Respiratory: bilateral: diminished, negative: rales, rhonchi, wheezing - Cardiovascular Rhythm: regular Heart Sounds: Present: S1 & S2 - Extremities Extremities: no ischemia, No edema - Abdominal General gastrointestinal: soft, non-tender, non-distended, normal bowel sounds - Integumentary Integumentary: Present: clear, warm - Psychiatric Psychiatric: appropriate mood/affect, cooperative - Neurologic Neurologic: other (residual weakness) Results - Labs CBC & Chem 7: 08/17/17 05:57 08/17/17 05:57 Labs: Laboratory Last Values WBC 5.1 K/mm3 (4.5-11.0) 08/17/17 05:57 RBC 3.70 M/mm3 (3.65-5.03) 08/17/17 05:57 Hgb 9.9 gm/dl (10.1-14.3) L 08/17/17 05:57 Hct 30.4 % (30.3-42.9) D 08/17/17 05:57 MCV 82 fl (79-97) 08/17/17 05:57 MCH 27 pg (28-32) L 08/17/17 05:57 MCHC 33 % (30-34) 08/17/17 05:57 RDW 16.3 % (13.2-15.2) H 08/17/17 05:57 Plt Count 140 K/mm3 (140-440) 08/17/17 05:57 Lymph % (Auto) 41.5 % (13.4-35.0) H 08/17/17 05:57 [place] % (Auto) 5.6 % (0.0-7.3) 08/17/17 05:57 Eos % (Auto) 0.1 % (0.0-4.3) 08/17/17 05:57 Baso % (Auto) 0.8 % (0.0-1.8) 08/17/17 05:57 Lymph # 2.1 K/mm3 (1.2-5.4) 08/17/17 05:57 [place] # 0.3 K/mm3 (0.0-0.8) 08/17/17 05:57 Eos # 0.0 K/mm3 (0.0-0.4) 08/17/17 05:57 Baso # 0.0 K/mm3 (0.0-0.1) 08/17/17 05:57 Seg Neutrophils % 52.0 % (40.0-70.0) 08/17/17 05:57 Seg Neutrophils # 2.6 K/mm3 (1.8-7.7) 08/17/17 05:57 Sodium 135 mmol/L (137-145) L D 08/17/17 05:57 Potassium 3.1 mmol/L (3.6-5.0) L 08/17/17 05:57 Chloride 98.5 mmol/L (98-107) 08/17/17 05:57 Carbon Dioxide 24 mmol/L (22-30) D 08/17/17 05:57 Anion Gap 16 mmol/L 08/17/17 05:57 BUN 6 mg/dL (7-17) L 08/17/17 05:57 Creatinine < 0.2 mg/dL (0.7-1.2) L 08/17/17 05:57 Estimated GFR > 60 ml/min 08/17/17 05:57 BUN/Creatinine Ratio 30 % 08/17/17 05:57 Glucose 462 mg/dL (65-100) H 08/17/17 05:57 POC Glucose 88 (70-105) 08/17/17 16:54 Calcium 7.5 mg/dL (8.4-10.2) L D 08/17/17 05:57 Magnesium 1.40 mg/dL (1.7-2.3) L 08/17/17 05:57 Total Bilirubin 0.20 mg/dL (0.1-1.2) 08/13/17 18:06 AST 16 units/L (5-40) 08/13/17 18:06 ALT 17 units/L (7-56) 08/13/17 18:06 Alkaline Phosphatase 90 units/L (35-129) 08/13/17 18:06 Total Creatine Kinase 17 units/L (30-135) L 08/16/17 06:05 CK-MB (CK-2) < 1.0 ng/mL (0.0-4.0) 08/16/17 06:05 CK-MB (CK-2) Rel Index 5.8 (0-4) H 08/16/17 06:05 Troponin T < 0.010 ng/mL (0.00-0.029) 08/16/17 06:05 Total Protein 6.3 g/dL (6.3-8.2) 08/13/17 18:06 Albumin 3.2 g/dL (3.9-5) L 08/13/17 18:06 Albumin/Globulin Ratio 1.0 % 08/13/17 18:06 Urine Color Yellow (Yellow) 08/14/17 03:38 Urine Turbidity Hazy (Clear) 08/14/17 03:38 Urine pH 7.0 (5.0-7.0) 08/14/17 03:38 Ur Specific [place] 1.011 (1.003-1.030) 08/14/17 03:38 Urine Protein <15 mg/dl mg/dL (Negative) 08/14/17 03:38 Urine Glucose (UA) Neg mg/dL (Negative) 08/14/17 03:38 Urine Ketones Neg mg/dL (Negative) 08/14/17 03:38 Urine Blood Neg (Negative) 08/14/17 03:38 Urine Nitrite Neg (Negative) 08/14/17 03:38 Urine Bilirubin Neg (Negative) 08/14/17 03:38 Urine Urobilinogen < 2.0 mg/dL (<2.0) 08/14/17 03:38 Ur Leukocyte Esterase Neg (Negative) 08/14/17 03:38 Urine WBC (Auto) 3.0 /HPF (0.0-6.0) 08/14/17 03:38 Urine RBC (Auto) 2.0 /HPF (0.0-6.0) 08/14/17 03:38 U Epithel Cells (Auto) < 1.0 /HPF (0-13.0) 08/14/17 03:38 Urine Bacteria (Auto) 1+ /HPF (Negative) 08/14/17 03:38 Amorphous Crystals 1+ 08/14/17 03:38 Hyaline Casts 1 /LPF 08/14/17 03:38 Granular Casts 14 /LPF 08/14/17 03:38 Urine Mucus 1+ /HPF 08/14/17 03:38 Phenytoin 1.1 ug/mL (10.0-20.0) L 08/13/17 18:06
[2017-08-17] MEDS: PROTONIX FEEDTUBE SCH (23:23)
[2017-08-18] MEDS: MORPHINE IV PRN ×3 (00:57→19:14)
[2017-08-18 06:39] LABS: Basophils % (Auto) 0.3 % (0.0-1.8); Hematocrit 34.2 % (30.3-42.9); Hemoglobin 11.2 gm/dl (10.1-14.3); Mean Corpuscular HGB Conc 33 % (30-34); Mean Corpuscular Hemoglobin 26 pg (28-32); Mean Corpuscular Volume 80 fl (79-97); Platelet Count 211 K/mm3 (140-440); Red Blood Count 4.25 M/mm3 (3.65-5.03); Red Cell Distribution Width 15.9 % (13.2-15.2); White Blood Count 5.9 K/mm3 (4.5-11.0)
[2017-08-18 06:45] LABS: Anion Gap 15 mmol/L; BUN/Creatinine Ratio 20; Blood Urea Nitrogen 4 mg/dL (7-17); Calcium 8.7 mg/dL (8.4-10.2); Carbon Dioxide 28 mmol/L (22-30); Glucose 117 mg/dL (65-100); Potassium 3.2 mmol/L (3.6-5.0); Sodium 145 mmol/L (137-145)
[2017-08-18] MEDS: NEURONTIN PO SCH ×2 (09:40→21:17)
[2017-08-18] MEDS: VIMPAT PO SCH (09:42)
[2017-08-18] MEDS: FOLVITE PO SCH (09:42)
[2017-08-18] MEDS: FLORANEX PO SCH (09:43)
[2017-08-18] MEDS: LOVENOX SUB-Q SCH (09:43)
[2017-08-18] MEDS: LEVAQUIN 750MG/150ML 750 MG/150 ML BAG IV SCH (09:44)
[2017-08-18] MEDS: PERCOCET 5/325 PO PRN (11:58)
--- NOTE | 2017-08-18 15:50 | Discharge Summary ---
Providers - Providers Date of Admission: 08/13/17 22:07 Date of discharge: 08/18/17 Attending physician: ANASTASIYA LOPEZ 08/13/17 22:07 Consult to Physician [CONS] Routine Consulting Provider: CARLOS DE LA GARZA Reason For Exam: n/v Place consult to:: dr. de la garza Notified:: answering service Phone number called:: Was contact made?: Yes If yes, spoke with:: elfego/ perez Time called:: 11:37 08/14/17 18:17 Consult to Dietitian/Nutrition [CONS] Routine Physician Instructions: Assess nutrtn needs, initiate, modify, manage TF Reason For Exam: Reason for Consult: Write/Manage Tube Feeding Reason for Consult: Write/Manage Tube Feeding 08/15/17 16:57 Consult to Dietitian/Nutrition [CONS] Routine Physician Instructions: Assess nutrtn needs, initiate, modify, manage TF Reason For Exam: Reason for Consult: Write/Manage Tube Feeding Reason for Consult: Write/Manage Tube Feeding 08/16/17 17:10 Occupational Therapy Evaluate and Treat [CONS] Routine Comment: Reason For Exam: deconditioning/placement Physical Therapy Evaluation and Treat [CONS] Routine Comment: Reason For Exam: deconditioning/placement Primary care physician: JOSE FISHMAN Hospitalization Condition: Stable Hospital course: Assessment and Plan Assessment and plan: --Malfunctioning PEG; now PEG is in place, GI evaluated the patient, resume tube feeding --Persistent nausea and vomiting; resolved --Aspiration pneumonia; closely monitor PEG feeds, aspiration precautions, continue antibiotics --h/o Seizure disorder; no new episodes continue current antiseizure medications --Spastic hemiplegia secondary to cerebral palsy supportive care --Moderate protein calorie malnutrition; Nutrition consult --h/o Gullian [place] Syndrome - PT and OT at SNF SNF placement D/c [facility] Disposition: DC/[place]-03 SNF W [facility] CERT Core Measure Documentation - Palliative Care Palliative Care/ Comfort Measures: Not Applicable - Core Measures Any of the following diagnoses?: none Exam - Constitutional Vitals: Temp Pulse Resp BP Pulse Ox 98.6 F 105 H 20 121/83 98 08/18/17 07:33 08/18/17 07:33 08/18/17 07:33 08/18/17 07:33 08/18/17 10:00 General appearance: Present: no acute distress, well-nourished - EENT Eyes: Present: PERRL ENT: hearing intact, clear oral mucosa - Neck Neck: Present: supple, normal ROM - Respiratory Respiratory effort: normal Respiratory: bilateral: CTA - Cardiovascular Heart Sounds: Present: S1 & S2. Absent: rub, click - Extremities Extremities: pulses symmetrical, No edema, abnormal (paraplegia) Peripheral Pulses: within normal limits - Abdominal General gastrointestinal: Present: soft, non-tender, non-distended, normal bowel sounds Female genitourinary: Present: normal - Integumentary Integumentary: Present: clear, warm, dry - Musculoskeletal Musculoskeletal: gait normal, strength equal bilaterally - Psychiatric Psychiatric: appropriate mood/affect, intact judgment & insight - Neurologic Neurologic: CNII-XII intact, focal deficits, other (Cerebral palsy and paraplegia) - Allied Health Allied health notes reviewed: nursing, case management Plan Activity: fall precautions Weight Bearing Status: Non-Weight Bearing Diet: other (Peg tube feeding) Follow up with: JOSE FISHMAN MD [Primary Care Provider] - 3-5 Days
[2017-08-18 15:53] VITALS: BP 108/76
== END 2017-08-18 21:55 | DRG 393 ==
LOC: ED 17:19 → 3A 22:07
PROVIDERS: ADMIT Hospitalist; ATTEND Internal Medicine
DX: K94.23 Gastrostomy malfunction (principal); J69.0 Pneumonitis due to inhalation of food and vomit; N20.1 Calculus of ureter; G61.0 Guillain-Barre syndrome; G80.2 Spastic hemiplegic cerebral palsy; E44.0 Moderate protein-calorie malnutrition; J96.10 Chronic respiratory failure, unspecified whether with hypoxia or hypercapnia; G40.909 Epilepsy, unspecified, not intractable, without status epilepticus; E11.9 Type 2 diabetes mellitus without complications; E66.01 Morbid (severe) obesity due to excess calories; I10 Essential (primary) hypertension; E78.5 Hyperlipidemia, unspecified; E87.6 Hypokalemia; F32.9 Major depressive disorder, single episode, unspecified; R13.12 Dysphagia, oropharyngeal phase; E83.42 Hypomagnesemia; Y84.8 Other medical procedures as the cause of abnormal reaction of the patient, or of later complication, without mention of misadventure at the time of the procedure; Y82.8 Other medical devices associated with adverse incidents; F41.9 Anxiety disorder, unspecified; Z68.28 Body mass index [BMI] 28.0-28.9, adult; Z88.0 Allergy status to penicillin; Z90.721 Acquired absence of ovaries, unilateral
CPT/HCPCS: 36415; 71010; 74000; 74150; 80048; 80053; 80185; 81001; 82550; 82553; 82962; 83735; 84100; 84484; 85025; 87040; 93005; 93010; 94640; 94760; 96374; J1650; J1956; J2060; J2270; J2405; J3475; J7030; Q0162; Q9963

== ENCOUNTER 2017-08-25 16:41 | Inpatient (IN) | payer MEDICAID ==
[2017-08-25] MEDS ORDERED: NACL 0.9% 1000 ML 1,000 ML IV ONE (18:10)
[2017-08-25 20:18] LABS: Basophils # (Auto) 0.1 K/mm3 (0.0-0.1); Basophils % (Auto) 0.7 % (0.0-1.8); Eosinophils % (Auto) 0.1 % (0.0-4.3); Hematocrit 41.2 % (30.3-42.9); Hemoglobin 13.1 gm/dl (10.1-14.3); Lymphocytes % (Auto) 29.1 % (13.4-35.0); Mean Corpuscular HGB Conc 32 % (30-34); Mean Corpuscular Volume 82 fl (79-97); Monocytes # (Auto) 0.8 K/mm3 (0.0-0.8); Monocytes % (Auto) 5.6 % (0.0-7.3); Platelet Count 323 K/mm3 (140-440); Red Blood Count 5.06 M/mm3 (3.65-5.03); Red Cell Distribution Width 16.6 % (13.2-15.2)
[2017-08-25 20:27] LABS: INR 1.1 (0.87-1.13); Mean Corpuscular Hemoglobin 26 pg (28-32)
[2017-08-25 20:28] LABS: Partial Thromboplastin Time 34.1 Sec. (24.2-36.6)
[2017-08-25] MEDS ORDERED: PROTONIX PO ONE (20:29)
[2017-08-25] MEDS ORDERED: NACL 0.9% 1000 ML IV ONE (20:29)
[2017-08-25] MEDS ORDERED: TYLENOL PR ONE (20:29)
[2017-08-25] MEDS ORDERED: LEVAQUIN 750MG/150ML 750 MG/150 ML BAG IV ONE (20:29)
--- NOTE | 2017-08-25 20:32 | Emergency Department Report ---
ED General Adult HPI - General Chief complaint: GI Bleed Stated complaint: GI BLEED /ABD PAIN Time Seen by Provider: 08/25/17 20:18 Source: patient, EMS (ems notes not available at time of chart dictation), RN notes reviewed, old records reviewed Mode of arrival: Stretcher Limitations: Physical Limitation - History of Present Illness Initial comments: This is a 37-year-old female who was previously unknown to this provider. Past medical history includes seizure, Manny Chaidez, cerebral palsy, obesity, sleep apnea, hypertension, feeding tube Patient is sent to the ER for evaluation for possible GI bleed. Patient thinks that she threw up blood but is not sure. She complains of epigastric abdominal pain. The pain is sharp. It does not radiate anywhere. It increases with palpation and decreases with rest. Positive cough, positive fever, positive malaise, positive weakness. Patient does not think that she's had any issues with defecating blood. -: Gradual Location: abdomen Radiation: non-radiation Severity scale (0 -10): 8 Quality: aching Consistency: intermittent Improves with: rest Worsens with: movement Associated Symptoms: cough, fever/chills, loss of appetite, malaise, nausea/ vomiting, shortness of breath, weakness. denies: confusion, chest pain, diaphoresis, headaches, rash, seizure, syncope - Related Data Home Medications Medication Instructions Recorded Confirmed Last Taken Acetaminophen [Acetaminophen TAB] 640 mg PO Q6HR 08/07/17 08/25/17 Unknown Albuterol [Proventil Tab] 2.5 mg IH Q2HR PRN 08/07/17 08/25/17 Unknown Alum-Mag Hydroxide-Simeth Liq 15 ml PO Q4HR 08/07/17 08/25/17 Unknown Enoxaparin [Lovenox] 40 mg SQ DAILY 08/07/17 08/25/17 Unknown Esomeprazole Magnesium 40 mg FEEDTUBE QHS 08/07/17 08/25/17 Unknown Hydrocortisone [Adv Allergy 1 applic TRANSDERMA BID 08/07/17 08/25/17 Unknown Collection Kit] Lactobacillus Acidophilus 1 each PO DAILY 08/07/17 08/25/17 Unknown [Acidophilus Lactobacilli] diphenhydrAMINE [Benadryl ORAL LIQ] 12.5 mg PO Q6HR PRN 08/07/17 08/25/17 Unknown ALBUTEROL NEB's [Proventil 0.083% 2.5 mg IH Q2HRT PRN 08/25/17 08/25/17 Unknown NEBS] Pantoprazole [Protonix] 40 mg PO DAILY 08/25/17 08/25/17 Unknown Previous Rx's Medication Instructions Recorded Last Taken Type Acetaminophen [Acetaminophen TAB] 650 mg PO Q4H PRN #30 tablet 08/11/17 Unknown Rx Antacid [Alum-Mag Hydrox-Simeth 15 ml PO Q4HR PRN #30 day 08/11/17 Unknown Rx [id number]/5Ml] Lipase/Protease/Amylase [Pancreaze 1 each FEEDTUBE PRN PRN #30 capsule 08/11/17 Unknown Rx 10,500 Unit] Ondansetron [Zofran Oral Liq] 4 mg FEEDTUBE Q4H PRN #30 day 08/11/17 Unknown Rx Simple Syrup 15 ml FEEDTUBE PRN PRN #30 08/11/17 Unknown Rx oral.liqd Simple Syrup 30 ml FEEDTUBE PRN PRN #30 08/11/17 Unknown Rx oral.liqd Sodium Bicarbonate 325 mg FEEDTUBE PRN PRN #30 tablet 08/11/17 Unknown Rx ALPRAZolam [Xanax TAB] 0.25 mg FEEDTUBE TID PRN 30 Days 08/18/17 Unknown Rx #10 day Folic Acid [Folvite] 1 mg PO QDAY #30 tablet 08/18/17 Unknown Rx Gabapentin [Neurontin 250 mg/5 ml] 400 mg PO TID #90 oral.liqd 08/18/17 Unknown Rx Lacosamide [Vimpat] 100 mg PO BID #60 tablet 08/18/17 Unknown Rx oxyCODONE [Roxicodone TAB] 5 mg FEEDTUBE Q4HR 30 Days #30 08/18/17 Unknown Rx tablet Allergies Allergy/AdvReac Type Severity Reaction Status Date / Time amoxicillin Allergy Angioedema Verified 08/25/17 18:05 Penicillins Allergy Hives Verified 08/06/17 17:38 ED Review of Systems ROS: Stated complaint: GI BLEED /ABD PAIN Other details as noted in HPI Constitutional: fever, malaise ED Past Medical Hx - Past Medical History Hx Hypertension: Yes Hx Diabetes: Yes Hx Seizures: Yes Hx Asthma: Yes Hx COPD: No Additional medical history: [place], Cerebral Palsy, Seizure Disorder, Morbid Obesity, Sleep Apnea, Electrolyte Disorder, Dysautomia, Sinus Tachycardia , Dyshphagia, Cervical DJD, Lumbar DJD, Encephalopathy, Yeast Dermatitis, HTNm Hyperlipidemia, Anemia, Leukocytosis, Renal Mass, Bladder Spasm, Hyponatremia, Hypokalemia, Hypomagnesemia, Depresion/Anxiety, Fibrosis of the Liver, Chronic Respiratory Failure, Psuedoseizure, Rosacea, Diarrhea, - Surgical History Past Surgical History?: Yes Additional Surgical History: Gastric Banding, saplingectomy, tracheostomy placement, pt unaware of other surgical history - Social History Smoking Status: Never Smoker Substance Use Type: None - Medications Home Medications: Home Medications Medication Instructions Recorded Confirmed Last Taken Type Acetaminophen [Acetaminophen TAB] 640 mg PO Q6HR 08/07/17 08/25/17 Unknown History Albuterol [Proventil Tab] 2.5 mg IH Q2HR PRN 08/07/17 08/25/17 Unknown History Alum-Mag Hydroxide-Simeth Liq 15 ml PO Q4HR 08/07/17 08/25/17 Unknown History Enoxaparin [Lovenox] 40 mg SQ DAILY 08/07/17 08/25/17 Unknown History Esomeprazole Magnesium 40 mg FEEDTUBE QHS 08/07/17 08/25/17 Unknown History Hydrocortisone [Adv Allergy 1 applic TRANSDERMA BID 08/07/17 08/25/17 Unknown History Collection Kit] Lactobacillus Acidophilus 1 each PO DAILY 08/07/17 08/25/17 Unknown History [Acidophilus Lactobacilli] diphenhydrAMINE [Benadryl ORAL LIQ] 12.5 mg PO Q6HR PRN 08/07/17 08/25/17 Unknown History Acetaminophen [Acetaminophen TAB] 650 mg PO Q4H PRN #30 tablet 08/11/17 Unknown Rx Antacid [Alum-Mag Hydrox-Simeth 15 ml PO Q4HR PRN #30 day 08/11/17 08/25/17 Unknown Rx [id number]/5Ml] Lipase/Protease/Amylase [Pancreaze 1 each FEEDTUBE PRN PRN #30 capsule 08/11/17 08/25/17 Unknown Rx 10,500 Unit] Ondansetron [Zofran Oral Liq] 4 mg FEEDTUBE Q4H PRN #30 day 08/11/17 08/25/17 Unknown Rx Simple Syrup 15 ml FEEDTUBE PRN PRN #30 08/11/17 08/25/17 Unknown Rx oral.liqd Simple Syrup 30 ml FEEDTUBE PRN PRN #30 08/11/17 08/25/17 Unknown Rx oral.liqd Sodium Bicarbonate 325 mg FEEDTUBE PRN PRN #30 tablet 08/11/17 08/25/17 Unknown Rx ALPRAZolam [Xanax TAB] 0.25 mg FEEDTUBE TID PRN 30 Days 08/18/17 08/25/17 Unknown Rx #10 day Folic Acid [Folvite] 1 mg PO QDAY #30 tablet 08/18/17 08/25/17 Unknown Rx Gabapentin [Neurontin 250 mg/5 ml] 400 mg PO TID #90 oral.liqd 08/18/17 Unknown Rx Lacosamide [Vimpat] 100 mg PO BID #60 tablet 08/18/17 08/25/17 Unknown Rx oxyCODONE [Roxicodone TAB] 5 mg FEEDTUBE Q4HR 30 Days #30 08/18/17 08/25/17 Unknown Rx tablet ALBUTEROL NEB's [Proventil 0.083% 2.5 mg IH Q2HRT PRN 08/25/17 08/25/17 Unknown History NEBS] Pantoprazole [Protonix] 40 mg PO DAILY 08/25/17 08/25/17 Unknown History ED Physical Exam - General Limitations: Physical Limitation General appearance: alert, anxious, obese - Head Head exam: Present: atraumatic, normocephalic - Eye Eye exam: Present: normal appearance, EOMI - ENT ENT exam: Present: mucous membranes dry - Neck Neck exam: Present: normal inspection, full ROM - Respiratory Respiratory exam: Present: decreased breath sounds. Absent: respiratory distress - Cardiovascular Cardiovascular Exam: Present: normal rhythm, tachycardia. Absent: systolic murmur, diastolic murmur, rubs, gallop - GI/Abdominal GI/Abdominal exam: Present: soft, tenderness, normal bowel sounds, other (there is epigastric tenderness. No rebound, guarding or peritoneal signs). Absent: distended, guarding, rebound, rigid, pulsatile mass - Rectal Rectal exam: Present: normal inspection, normal rectal tone, heme (-) stool, other (guaiac-negative, during rectal examination, escorted by nurse Chanda Alvarez) . Absent: decreased rectal tone - Extremities Exam Extremities exam: Present: normal inspection, pedal edema. Absent: calf tenderness - Back Exam Back exam: Present: normal inspection. Absent: tenderness, CVA tenderness (R), paraspinal tenderness - Neurological Exam Neurological exam: Present: alert - Psychiatric Psychiatric exam: Present: normal affect, normal mood - Skin Skin exam: Present: warm, dry, intact, normal color. Absent: rash ED Course Vital Signs 08/25/17 08/25/17 08/25/17 18:05 19:00 19:16 Temperature 97.5 F L Pulse Rate 92 H 129 H 128 H Pulse Rate [ Bilateral Throughout] Respiratory 16 24 25 H Rate Respiratory Rate [Bilateral Throughout] Blood Pressure 102/67 117/83 117/83 Blood Pressure [Right] O2 Sat by Pulse 98 95 93 Oximetry 08/25/17 08/25/17 08/25/17 19:30 19:46 19:50 Temperature 98.4 F Pulse Rate 130 H 132 H 126 H Pulse Rate [ Bilateral Throughout] Respiratory 24 28 H 26 H Rate Respiratory Rate [Bilateral Throughout] Blood Pressure 115/75 115/75 Blood Pressure 115/75 [Right] O2 Sat by Pulse 93 95 94 Oximetry 08/25/17 08/25/17 08/25/17 20:00 20:16 20:30 Temperature Pulse Rate 135 H 133 H 133 H Pulse Rate [ Bilateral Throughout] Respiratory 27 H 25 H 29 H Rate Respiratory Rate [Bilateral Throughout] Blood Pressure 115/79 115/79 105/71 Blood Pressure [Right] O2 Sat by Pulse 93 94 Oximetry 08/25/17 08/25/17 08/25/17 20:46 21:00 21:11 Temperature Pulse Rate 128 H 125 H Pulse Rate [ Bilateral Throughout] Respiratory 25 H 25 H 26 H Rate Respiratory Rate [Bilateral Throughout] Blood Pressure 105/71 105/71 Blood Pressure [Right] O2 Sat by Pulse 95 97 Oximetry 08/25/17 08/25/17 08/25/17 21:45 21:48 22:00 Temperature Pulse Rate 131 H 131 H Pulse Rate [ Bilateral Throughout] Respiratory 26 H 18 25 H Rate Respiratory Rate [Bilateral Throughout] Blood Pressure 105/71 122/79 Blood Pressure [Right] O2 Sat by Pulse 95 96 Oximetry 08/25/17 08/25/17 08/25/17 22:11 22:16 22:30 Temperature Pulse Rate 125 H 119 H Pulse Rate [ Bilateral Throughout] Respiratory 16 23 25 H Rate Respiratory Rate [Bilateral Throughout] Blood Pressure 122/79 128/88 Blood Pressure [Right] O2 Sat by Pulse 97 100 Oximetry 08/25/17 08/25/17 08/25/17 22:46 23:00 23:44 Temperature Pulse Rate 116 H 116 H Pulse Rate [ Bilateral Throughout] Respiratory 22 20 Rate Respiratory Rate [Bilateral Throughout] Blood Pressure 128/88 118/89 118/89 Blood Pressure [Right] O2 Sat by Pulse 100 99 97 Oximetry 08/25/17 08/26/17 08/26/17 23:46 00:00 00:16 Temperature Pulse Rate 116 H 115 H Pulse Rate [ Bilateral Throughout] Respiratory 21 21 Rate Respiratory Rate [Bilateral Throughout] Blood Pressure 118/89 127/79 118/89 Blood Pressure [Right] O2 Sat by Pulse 97 96 97 Oximetry 08/26/17 08/26/17 08/26/17 00:30 00:32 00:46 Temperature 99 F Pulse Rate 112 H 110 H 118 H Pulse Rate [ Bilateral Throughout] Respiratory 22 21 25 H Rate Respiratory Rate [Bilateral Throughout] Blood Pressure 127/87 127/79 Blood Pressure 127/79 [Right] O2 Sat by Pulse 96 97 98 Oximetry 08/26/17 08/26/17 08/26/17 01:00 01:16 01:30 Temperature Pulse Rate 111 H 116 H 124 H Pulse Rate [ Bilateral Throughout] Respiratory 23 19 21 Rate Respiratory Rate [Bilateral Throughout] Blood Pressure 119/81 119/81 110/68 Blood Pressure [Right] O2 Sat by Pulse 94 97 98 Oximetry 08/26/17 08/26/17 08/26/17 01:46 02:00 02:16 Temperature Pulse Rate 132 H 134 H 126 H Pulse Rate [ Bilateral Throughout] Respiratory 25 H 25 H 23 Rate Respiratory Rate [Bilateral Throughout] Blood Pressure 119/81 119/81 89/47 Blood Pressure [Right] O2 Sat by Pulse 96 95 100 Oximetry 08/26/17 08/26/17 08/26/17 02:18 02:30 02:46 Temperature Pulse Rate 130 H 134 H Pulse Rate [ 120 H Bilateral Throughout] Respiratory 22 28 H Rate Respiratory 22 Rate [Bilateral Throughout] Blood Pressure 98/60 98/60 Blood Pressure [Right] O2 Sat by Pulse 99 94 Oximetry 08/26/17 08/26/17 08/26/17 03:00 03:16 03:30 Temperature 99.3 F Pulse Rate 132 H 128 H 126 H Pulse Rate [ Bilateral Throughout] Respiratory 29 H 27 H 23 Rate Respiratory Rate [Bilateral Throughout] Blood Pressure 96/54 98/60 98/60 Blood Pressure 96/54 [Right] O2 Sat by Pulse 92 93 94 Oximetry 08/26/17 08/26/17 08/26/17 03:46 04:00 04:13 Temperature Pulse Rate 125 H 122 H Pulse Rate [ Bilateral Throughout] Respiratory 22 29 H 20 Rate Respiratory Rate [Bilateral Throughout] Blood Pressure 96/54 96/54 Blood Pressure [Right] O2 Sat by Pulse 94 Oximetry 08/26/17 08/26/17 08/26/17 04:16 04:30 04:43 Temperature Pulse Rate 119 H 118 H Pulse Rate [ Bilateral Throughout] Respiratory 21 22 16 Rate Respiratory Rate [Bilateral Throughout] Blood Pressure 115/62 115/62 Blood Pressure [Right] O2 Sat by Pulse 99 100 Oximetry 08/26/17 08/26/17 08/26/17 04:46 05:00 05:16 Temperature Pulse Rate 118 H 119 H 120 H Pulse Rate [ Bilateral Throughout] Respiratory 21 21 22 Rate Respiratory Rate [Bilateral Throughout] Blood Pressure 114/68 114/73 114/73 Blood Pressure [Right] O2 Sat by Pulse 100 96 95 Oximetry 08/26/17 08/26/17 08/26/17 05:30 05:46 06:00 Temperature Pulse Rate 119 H 117 H 115 H Pulse Rate [ Bilateral Throughout] Respiratory 24 21 22 Rate Respiratory Rate [Bilateral Throughout] Blood Pressure 107/69 107/69 103/67 Blood Pressure [Right] O2 Sat by Pulse 99 96 94 Oximetry 08/26/17 08/26/17 08/26/17 06:10 06:16 06:30 Temperature Pulse Rate 120 H 116 H Pulse Rate [ Bilateral Throughout] Respiratory 21 20 20 Rate Respiratory Rate [Bilateral Throughout] Blood Pressure 103/67 108/62 Blood Pressure [Right] O2 Sat by Pulse 95 96 95 Oximetry 08/26/17 08/26/17 08/26/17 06:46 07:00 07:16 Temperature Pulse Rate 113 H 118 H 115 H Pulse Rate [ Bilateral Throughout] Respiratory 20 26 H 23 Rate Respiratory Rate [Bilateral Throughout] Blood Pressure 107/69 107/69 96/66 Blood Pressure [Right] O2 Sat by Pulse 98 96 97 Oximetry 08/26/17 08/26/17 08/26/17 07:30 07:46 08:00 Temperature Pulse Rate 112 H 110 H 104 H Pulse Rate [ Bilateral Throughout] Respiratory 22 26 H 21 Rate Respiratory Rate [Bilateral Throughout] Blood Pressure 96/66 129/45 124/76 Blood Pressure [Right] O2 Sat by Pulse 96 98 100 Oximetry 08/26/17 08/26/17 08/26/17 08:16 08:23 08:30 Temperature Pulse Rate 105 H 115 H Pulse Rate [ 105 H Bilateral Throughout] Respiratory 20 22 Rate Respiratory 20 Rate [Bilateral Throughout] Blood Pressure 129/45 118/74 Blood Pressure [Right] O2 Sat by Pulse 100 100 Oximetry 08/26/17 08/26/17 08/26/17 08:31 08:46 09:00 Temperature Pulse Rate 123 H 122 H Pulse Rate [ 110 H Bilateral Throughout] Respiratory 24 21 Rate Respiratory 20 Rate [Bilateral Throughout] Blood Pressure 118/74 126/80 Blood Pressure [Right] O2 Sat by Pulse 100 98 Oximetry 08/26/17 08/26/17 08/26/17 09:16 09:30 09:46 Temperature Pulse Rate 119 H 116 H 117 H Pulse Rate [ Bilateral Throughout] Respiratory 20 23 24 Rate Respiratory Rate [Bilateral Throughout] Blood Pressure 126/80 124/75 124/75 Blood Pressure [Right] O2 Sat by Pulse 97 97 97 Oximetry 08/26/17 08/26/17 08/26/17 10:00 10:16 10:30 Temperature Pulse Rate 118 H 118 H 117 H Pulse Rate [ Bilateral Throughout] Respiratory 21 27 H 22 Rate Respiratory Rate [Bilateral Throughout] Blood Pressure 124/85 124/75 123/78 Blood Pressure [Right] O2 Sat by Pulse 98 97 99 Oximetry 08/26/17 08/26/17 08/26/17 10:46 11:00 11:16 Temperature Pulse Rate 114 H 111 H 108 H Pulse Rate [ Bilateral Throughout] Respiratory 19 23 20 Rate Respiratory Rate [Bilateral Throughout] Blood Pressure 123/78 126/83 123/78 Blood Pressure [Right] O2 Sat by Pulse 99 100 100 Oximetry 08/26/17 08/26/17 08/26/17 11:30 11:46 12:00 Temperature Pulse Rate 111 H 109 H 113 H Pulse Rate [ Bilateral Throughout] Respiratory 20 19 21 Rate Respiratory Rate [Bilateral Throughout] Blood Pressure 120/78 126/83 127/82 Blood Pressure [Right] O2 Sat by Pulse 100 99 99 Oximetry 08/26/17 08/26/17 12:10 12:20 Temperature Pulse Rate 116 H 120 H Pulse Rate [ Bilateral Throughout] Respiratory 16 17 Rate Respiratory Rate [Bilateral Throughout] Blood Pressure 127/82 127/82 Blood Pressure [Right] O2 Sat by Pulse 99 100 Oximetry ED Medical Decision Making - Lab Data Result diagrams: 08/27/17 05:04 08/27/17 05:04 Vital Signs 08/25/17 08/25/17 08/25/17 18:05 19:50 21:11 Temperature 97.5 F L 98.4 F Pulse Rate 92 H 126 H Respiratory 16 26 H 26 H Rate Blood Pressure 102/67 Blood Pressure 115/75 [Right] O2 Sat by Pulse 98 94 Oximetry Lab Results 08/25/17 08/25/17 08/25/17 Range/Units 19:46 19:46 19:46 WBC 13.9 H (4.5-11.0) K/mm3 RBC 5.06 H (3.65-5.03) M/mm3 Hgb 13.1 (10.1-14.3) gm/dl Hct 41.2 (30.3-42.9) % MCV 82 (79-97) fl MCH 26 L (28-32) pg MCHC 32 (30-34) % RDW 16.6 H (13.2-15.2) % Plt Count 323 (140-440) K/mm3 Lymph % (Auto) 29.1 (13.4-35.0) % [place] % (Auto) 5.6 (0.0-7.3) % Eos % (Auto) 0.1 (0.0-4.3) % Baso % (Auto) 0.7 (0.0-1.8) % Lymph # 4.0 (1.2-5.4) K/mm3 [place] # 0.8 (0.0-0.8) K/mm3 Eos # 0.0 (0.0-0.4) K/mm3 Baso # 0.1 (0.0-0.1) K/mm3 Seg Neutrophils % 64.5 (40.0-70.0) % Seg Neutrophils # 9.0 H (1.8-7.7) K/mm3 PT 14.8 (12.2-14.9) Sec. INR 1.10 (0.87-1.13) APTT 34.1 (24.2-36.6) Sec. POC ABG pH (7.35-7.45) POC ABG pCO2 (35-45) POC ABG pO2 (80-105) POC ABG HCO3 POC ABG Total CO2 POC ABG O2 Sat POC ABG Base Excess FiO2 % Sodium 145 (137-145) mmol/L Potassium 3.6 (3.6-5.0) mmol/L Chloride 102.7 (98-107) mmol/L Carbon Dioxide 25 (22-30) mmol/L Anion Gap 21 mmol/L BUN 17 (7-17) mg/dL Creatinine < 0.2 L (0.7-1.2) mg/dL Estimated GFR > 60 ml/min BUN/Creatinine Ratio 85 % Glucose 83 (65-100) mg/dL Lactic Acid (0.7-2.0) mmol/L Calcium 9.0 (8.4-10.2) mg/dL Total Bilirubin 0.20 (0.1-1.2) mg/dL AST 17 (5-40) units/L ALT 12 (7-56) units/L Alkaline Phosphatase 70 (35-129) units/L Total Creatine Kinase (30-135) units/L Total Protein 6.2 L (6.3-8.2) g/dL Albumin 3.2 L (3.9-5) g/dL Albumin/Globulin Ratio 1.1 % Lipase 68 H (13-60) units/L Urine Color (Yellow) Urine Turbidity (Clear) Urine pH (5.0-7.0) Ur Specific [place] (1.003-1.030) Urine Protein (Negative) mg/dL Urine Glucose (UA) (Negative) mg/dL Urine Ketones (Negative) mg/dL Urine Blood (Negative) Urine Nitrite (Negative) Urine Bilirubin (Negative) Urine Urobilinogen (<2.0) mg/dL Ur Leukocyte Esterase (Negative) Urine WBC (Auto) (0.0-6.0) /HPF Urine RBC (Auto) (0.0-6.0) /HPF U Epithel Cells (Auto) (0-13.0) /HPF Urine Bacteria (Auto) (Negative) /HPF Urine Mucus /HPF Blood Type 08/25/17 08/25/17 08/25/17 Range/Units 19:46 20:51 20:54 WBC (4.5-11.0) K/mm3 RBC (3.65-5.03) M/mm3 Hgb (10.1-14.3) gm/dl Hct (30.3-42.9) % MCV (79-97) fl MCH (28-32) pg MCHC (30-34) % RDW (13.2-15.2) % Plt Count (140-440) K/mm3 Lymph % (Auto) (13.4-35.0) % [place] % (Auto) (0.0-7.3) % Eos % (Auto) (0.0-4.3) % Baso % (Auto) (0.0-1.8) % Lymph # (1.2-5.4) K/mm3 [place] # (0.0-0.8) K/mm3 Eos # (0.0-0.4) K/mm3 Baso # (0.0-0.1) K/mm3 Seg Neutrophils % (40.0-70.0) % Seg Neutrophils # (1.8-7.7) K/mm3 PT (12.2-14.9) Sec. INR (0.87-1.13) APTT (24.2-36.6) Sec. POC ABG pH 7.471 H (7.35-7.45) POC ABG pCO2 36.2 (35-45) POC ABG pO2 71 L (80-105) POC ABG HCO3 26.4 POC ABG Total CO2 27 POC ABG O2 Sat 95 POC ABG Base Excess 3 FiO2 21 % Sodium (137-145) mmol/L Potassium (3.6-5.0) mmol/L Chloride (98-107) mmol/L Carbon Dioxide (22-30) mmol/L Anion Gap mmol/L BUN (7-17) mg/dL Creatinine (0.7-1.2) mg/dL Estimated GFR ml/min BUN/Creatinine Ratio % Glucose (65-100) mg/dL Lactic Acid 0.70 (0.7-2.0) mmol/L Calcium (8.4-10.2) mg/dL Total Bilirubin (0.1-1.2) mg/dL AST (5-40) units/L ALT (7-56) units/L Alkaline Phosphatase (35-129) units/L Total Creatine Kinase (30-135) units/L Total Protein (6.3-8.2) g/dL Albumin (3.9-5) g/dL Albumin/Globulin Ratio % Lipase (13-60) units/L Urine Color (Yellow) Urine Turbidity (Clear) Urine pH (5.0-7.0) Ur Specific [place] (1.003-1.030) Urine Protein (Negative) mg/dL Urine Glucose (UA) (Negative) mg/dL Urine Ketones (Negative) mg/dL Urine Blood (Negative) Urine Nitrite (Negative) Urine Bilirubin (Negative) Urine Urobilinogen (<2.0) mg/dL Ur Leukocyte Esterase (Negative) Urine WBC (Auto) (0.0-6.0) /HPF Urine RBC (Auto) (0.0-6.0) /HPF U Epithel Cells (Auto) (0-13.0) /HPF Urine Bacteria (Auto) (Negative) /HPF Urine Mucus /HPF Blood Type B POSITIVE 08/25/17 08/25/17 Range/Units 20:54 21:50 WBC (4.5-11.0) K/mm3 RBC (3.65-5.03) M/mm3 Hgb (10.1-14.3) gm/dl Hct (30.3-42.9) % MCV (79-97) fl MCH (28-32) pg MCHC (30-34) % RDW (13.2-15.2) % Plt Count (140-440) K/mm3 Lymph % (Auto) (13.4-35.0) % [place] % (Auto) (0.0-7.3) % Eos % (Auto) (0.0-4.3) % Baso % (Auto) (0.0-1.8) % Lymph # (1.2-5.4) K/mm3 [place] # (0.0-0.8) K/mm3 Eos # (0.0-0.4) K/mm3 Baso # (0.0-0.1) K/mm3 Seg Neutrophils % (40.0-70.0) % Seg Neutrophils # (1.8-7.7) K/mm3 PT (12.2-14.9) Sec. INR (0.87-1.13) APTT (24.2-36.6) Sec. POC ABG pH (7.35-7.45) POC ABG pCO2 (35-45) POC ABG pO2 (80-105) POC ABG HCO3 POC ABG Total CO2 POC ABG O2 Sat POC ABG Base Excess FiO2 % Sodium (137-145) mmol/L Potassium (3.6-5.0) mmol/L Chloride (98-107) mmol/L Carbon Dioxide (22-30) mmol/L Anion Gap mmol/L BUN (7-17) mg/dL Creatinine (0.7-1.2) mg/dL Estimated GFR ml/min BUN/Creatinine Ratio % Glucose (65-100) mg/dL Lactic Acid (0.7-2.0) mmol/L Calcium (8.4-10.2) mg/dL Total Bilirubin (0.1-1.2) mg/dL AST (5-40) units/L ALT (7-56) units/L Alkaline Phosphatase (35-129) units/L Total Creatine Kinase 16 L (30-135) units/L Total Protein (6.3-8.2) g/dL Albumin (3.9-5) g/dL Albumin/Globulin Ratio % Lipase (13-60) units/L Urine Color Yellow (Yellow) Urine Turbidity Clear (Clear) Urine pH 5.0 (5.0-7.0) Ur Specific [place] 1.025 (1.003-1.030) Urine Protein <15 mg/dl (Negative) mg/dL Urine Glucose (UA) Neg (Negative) mg/dL Urine Ketones 20 (Negative) mg/dL Urine Blood Neg (Negative) Urine Nitrite Neg (Negative) Urine Bilirubin Neg (Negative) Urine Urobilinogen < 2.0 (<2.0) mg/dL Ur Leukocyte Esterase Sm (Negative) Urine WBC (Auto) 34.0 H (0.0-6.0) /HPF Urine RBC (Auto) 2.0 (0.0-6.0) /HPF U Epithel Cells (Auto) 1.0 (0-13.0) /HPF Urine Bacteria (Auto) 1+ (Negative) /HPF Urine Mucus 3+ /HPF Blood Type - EKG Data -: EKG Interpreted by Id - EKG Data 08/25/17 22:33 Sinus tachycardia, 128 bpm, borderline left axis deviation, QTC prolonged, not having chest pain, abnormal EKG, not a STEMI. - Radiology Data Radiology results: report reviewed, image reviewed Referring Physician: JOSE SNYDER Patient Name: BILLIE CAMACHO Date of : 1980 Sex: Female Report Date: 2017-08-25 Report Status: [place] [address] Cat Scan Report Signed Patient: BILLIE CAMACHO MR#: [id number] : 1980 Acct:[id number] Age/Sex: 37 / F ADM Date: 08/25/17 Loc: ED Attending Dr: Ordering Physician: JOSE SNYDER MD Date of Service: 08/25/17 Procedure(s): CT abdomen pelvis wo con Accession Number(s): [id number] cc: JOSE SNYDER MD FINAL REPORT PROCEDURE: CT ABDOMEN PELVIS WO CON TECHNIQUE: Computerized axial tomography of the abdomen and pelvis was performed without intravenous contrast. This study is performed without intravascular contrast material and its sensitivity for abdominal and pelvic pathology, including neoplasms, inflammation, abscess, free fluid, thrombosis, arterial dissection and infarction, is reduced compared with a contrast enhanced study. HISTORY: abd pain sepsis COMPARISON: 08/13/2017 FINDINGS: Visualized lower thorax: There is airspace consolidation with air bronchograms in the right lower lung base. Left lung base is not fully imaged, however there is likely also left lower lobe atelectasis or infiltrate. Liver: Normal size and attenuation. Spleen: Normal size and attenuation. Gallbladder and biliary system: There has been cholecystectomy. Pancreas: Normal. Adrenals: Normal. Kidneys: 5 millimeter nonobstructive calculus in the left kidney upper pole. 2 millimeter nonobstructive calculus in the right kidney upper pole. There is a duplicated left renal collecting system. No hydronephrosis or ureteral calculi identified bilaterally. GI tract: The appendix is not diagnostically visualized or evaluated. Bowel obstruction or acute inflammation is seen. Gastric postsurgical changes are present. Gastrostomy tube tip is in the distal stomach. Lymph nodes and mesentery: Normal. Vasculature: Normal. Bladder: Normal. Reproductive organs: Uterus is not visualized. Peritoneum: No free fluid. Musculoskeletal structures: No significant abnormality. Other: None. IMPRESSION: Bilateral lung base airspace opacities are concerning for pneumonia. Bilateral nonobstructive renal calculi. No hydronephrosis or ureteral calculi are seen. No acute inflammatory process is seen. Transcribed By: [facility] Dictated By: JANET CABRERA M.D. Electronically Authenticated By: JANET CABRERA M.D. Signed Date/Time: 08/25/171757 DD/ 57 TD/TT: 08/25/171757 - Medical Decision Making Differential diagnosis, including but not limited to: GI bleed, urinary tract infection, multilobar pneumonia, sepsis, bacteremia Assessment and plan: 37-year-old female who is febrile, tachycardic, with leukocytosis, x-ray of the chest suggest pneumonia, CT scan of the abdomen and pelvis suggest bilateral pneumonia. Patient has had multiple hospitalizations recently, patient will be treated empirically for healthcare associated pneumonia with vancomycin, Levaquin, azithromycin. Patient will be treated along the sepsis pathway, with blood cultures, lactic acid, urine cultures, and appropriate fluid resuscitation. No evidence of active vomiting or GI bleed here in the ER, she may have coughed up blood secondary to her probable bilateral pneumonia. Patient is septic, and therefore requires hospitalization, case was presented to the Hospital physician, Dr. Andrews, who accepts the patient to the medical service for sepsis secondary to HCAP Critical care attestation.: If time is entered above; I have spent that time in minutes in the direct care of this critically ill patient, excluding procedure time. ED Disposition Clinical Impression: Sepsis Disposition: OP ADMIT IP TO THIS HOSP Is pt being admited?: Yes Condition: Good
[2017-08-25 20:35] LABS: Alanine Aminotransferase 12 units/L (7-56); Albumin 3.2 g/dL (3.9-5); BUN/Creatinine Ratio 85; Blood Urea Nitrogen 17 mg/dL (7-17); Hemolysis Index 6; Lipase 68 units/L (13-60)
--- NOTE | 2017-08-25 22:01 | Cat Scan Report ---
FINAL REPORT PROCEDURE: CT ABDOMEN PELVIS WO CON TECHNIQUE: Computerized axial tomography of the abdomen and pelvis was performed without intravenous contrast. This study is performed without intravascular contrast material and its sensitivity for abdominal and pelvic pathology, including neoplasms, inflammation, abscess, free fluid, thrombosis, arterial dissection and infarction, is reduced compared with a contrast enhanced study. HISTORY: abd pain sepsis COMPARISON: 08/13/2017 FINDINGS: Visualized lower thorax: There is airspace consolidation with air bronchograms in the right lower lung base. Left lung base is not fully imaged, however there is likely also left lower lobe atelectasis or infiltrate. Liver: Normal size and attenuation. Spleen: Normal size and attenuation. Gallbladder and biliary system: There has been cholecystectomy. Pancreas: Normal. Adrenals: Normal. Kidneys: 5 millimeter nonobstructive calculus in the left kidney upper pole. 2 millimeter nonobstructive calculus in the right kidney upper pole. There is a duplicated left renal collecting system. No hydronephrosis or ureteral calculi identified bilaterally. GI tract: The appendix is not diagnostically visualized or evaluated. Bowel obstruction or acute inflammation is seen. Gastric postsurgical changes are present. Gastrostomy tube tip is in the distal stomach. Lymph nodes and mesentery: Normal. Vasculature: Normal. Bladder: Normal. Reproductive organs: Uterus is not visualized. Peritoneum: No free fluid. Musculoskeletal structures: No significant abnormality. Other: None. IMPRESSION: Bilateral lung base airspace opacities are concerning for pneumonia. Bilateral nonobstructive renal calculi. No hydronephrosis or ureteral calculi are seen. No acute inflammatory process is seen.
--- NOTE | 2017-08-25 22:12 | XRay Report ---
FINAL REPORT PROCEDURE: XR CHEST 1V AP TECHNIQUE: Chest radiograph anteroposterior view. CPT 88134 HISTORY: Fever/Sepsis COMPARISON: 08/13/2017 FINDINGS: Heart: Normal. Mediastinum/Vessels: Normal. Lungs/Pleural space: There is left lung volume loss with shift of the mediastinum to the left. Left lung base opacity. No pneumothorax is seen. There is ground-glass opacity at the right lung base. Possible left pleural effusion. Bony thorax: No acute osseous abnormality. Life support devices: None. IMPRESSION: There is left lung volume loss/atelectasis with shift of the mediastinum to the left. Bibasilar airspace opacities. Findings may be related to pneumonia. Cannot exclude left lower lobar atelectasis
[2017-08-25 22:13] LABS: Bacteria,Urine 1+ /HPF (Negative); Bilirubin,Urine NEG (Negative); Blood,Urine NEG (Negative); Color,Urine Yellow (Yellow); Mucus,Urine 3+ /HPF; Nitrite,Urine NEG (Negative); Protein,Urine <15 mg/dL mg/dL (Negative); Urobilinogen,Urine < 2.0 mg/dL (<2.0)
[2017-08-25] MEDS ORDERED: VANCOMYCIN VIAL IV ONE (22:18)
[2017-08-25] MEDS ORDERED: ALUM-MAG HYDROX-SIMETH 200-200-20MG/5ML PO PRN (22:23)
[2017-08-25] MEDS ORDERED: AMBIEN PO PRN (22:23)
[2017-08-25] MEDS ORDERED: TYLENOL PO PRN ×2 (22:23→22:39)
[2017-08-25] MEDS ORDERED: DULCOLAX PR PRN (22:23)
[2017-08-25] MEDS ORDERED: MILK OF MAGNESIA PO PRN (22:23)
[2017-08-25] MEDS ORDERED: ZOFRAN IV PRN (22:23)
[2017-08-25] MEDS ORDERED: PROVENTIL IH PRN (22:23)
[2017-08-25] MEDS ORDERED: PANCREAZE DR 10,500 UNIT FEEDTUBE PRN (22:39)
[2017-08-25] MEDS ORDERED: BENADRYL PO PRN (22:39)
[2017-08-25] MEDS ORDERED: SODIUM BICARBONATE FEEDTUBE PRN (22:39)
--- NOTE | 2017-08-25 22:49 | History and Physical Report ---
History of Present Illness Date of examination: 08/25/17 Chief complaint: Coughing up blood History of present illness: This is a 37-year-old female who was brought to ER for Past medical history includes seizure, [place] Chaidez, cerebral palsy, obesity, sleep apnea, hypertension , feeding tube Patient is sent to the ER for evaluation for possible GI bleed. Patient thinks that she threw up blood but is not sure. She complains of epigastric abdominal pain. The pain is sharp. It does not radiate anywhere. It increases with palpation and decreases with rest. Positive cough, positive fever, positive malaise, positive weakness. Patient does not think that she's had any issues with defecating blood. Past History Past Medical History: diabetes, hypertension, seizures, other (asthma, [place], Cerebral Palsy, Seizure Disorder, Morbid Obesity, Sleep Apnea, Electrolyte Disorder, Dysautomia, Sinus Tachycardia, Dyshphagia, Cervical DJD, Lumbar DJD, Encephalopathy, Yeast Dermatitis, HTNm Hyperlipidemia, Anemia, Leukocytosis, Renal Mass, Bladder Spasm, Hyponatremia, Hypokalemia, Hypomagnesemia, Depresion/Anxiety, Fibrosis of the Liver, Chronic Respiratory Failure, Psuedoseizure, Rosacea, Diarrhea,) Past Surgical History: Other (Gastric Banding, saplingectomy, tracheostomy placement, status post PEG placement) Social history: full code. denies: smoking, alcohol abuse Family history: no significant family history Medications and Allergies Allergies Allergy/AdvReac Type Severity Reaction Status Date / Time amoxicillin Allergy Angioedema Verified 08/25/17 18:05 Penicillins Allergy Hives Verified 08/06/17 17:38 Home Medications Medication Instructions Recorded Confirmed Last Taken Type Acetaminophen [Acetaminophen TAB] 640 mg PO Q6HR 08/07/17 08/25/17 Unknown History Albuterol [Proventil Tab] 2.5 mg IH Q2HR PRN 08/07/17 08/25/17 Unknown History Alum-Mag Hydroxide-Simeth Liq 15 ml PO Q4HR 08/07/17 08/25/17 Unknown History Enoxaparin [Lovenox] 40 mg SQ DAILY 08/07/17 08/25/17 Unknown History Esomeprazole Magnesium 40 mg FEEDTUBE QHS 08/07/17 08/25/17 Unknown History Hydrocortisone [Adv Allergy 1 applic TRANSDERMA BID 08/07/17 08/25/17 Unknown History Collection Kit] Lactobacillus Acidophilus 1 each PO DAILY 08/07/17 08/25/17 Unknown History [Acidophilus Lactobacilli] diphenhydrAMINE [Benadryl ORAL LIQ] 12.5 mg PO Q6HR PRN 08/07/17 08/25/17 Unknown History Acetaminophen [Acetaminophen TAB] 650 mg PO Q4H PRN #30 tablet 08/11/17 Unknown Rx Antacid [Alum-Mag Hydrox-Simeth 15 ml PO Q4HR PRN #30 day 08/11/17 08/25/17 Unknown Rx [id number]] Lipase/Protease/Amylase [Pancreaze 1 each FEEDTUBE PRN PRN #30 capsule 08/11/17 08/25/17 Unknown Rx 10,500 Unit] Ondansetron [Zofran Oral Liq] 4 mg FEEDTUBE Q4H PRN #30 day 08/11/17 08/25/17 Unknown Rx Simple Syrup 15 ml FEEDTUBE PRN PRN #30 08/11/17 08/25/17 Unknown Rx oral.liqd Simple Syrup 30 ml FEEDTUBE PRN PRN #30 08/11/17 08/25/17 Unknown Rx oral.liqd Sodium Bicarbonate 325 mg FEEDTUBE PRN PRN #30 tablet 08/11/17 08/25/17 Unknown Rx ALPRAZolam [Xanax TAB] 0.25 mg FEEDTUBE TID PRN 30 Days 08/18/17 08/25/17 Unknown Rx #10 day Folic Acid [Folvite] 1 mg PO QDAY #30 tablet 08/18/17 08/25/17 Unknown Rx Gabapentin [Neurontin 250 mg/5 ml] 400 mg PO TID #90 oral.liqd 08/18/17 Unknown Rx Lacosamide [Vimpat] 100 mg PO BID #60 tablet 08/18/17 08/25/17 Unknown Rx oxyCODONE [Roxicodone TAB] 5 mg FEEDTUBE Q4HR 30 Days #30 08/18/17 08/25/17 Unknown Rx tablet ALBUTEROL NEB's [Proventil 0.083% 2.5 mg IH Q2HRT PRN 08/25/17 08/25/17 Unknown History NEBS] Pantoprazole [Protonix] 40 mg PO DAILY 08/25/17 08/25/17 Unknown History Active Meds: Active Medications Acetaminophen (Tylenol) 650 mg PO Q6H PRN PRN Reason: Pain MILD(1-3)/Fever >100.5/MCDONALD Acetaminophen (Tylenol) 650 mg PO Q4H PRN PRN Reason: Pain MILD(1-3)/Fever >100.5/MCDONALD Al Hydrox/Mg Hydrox/Simethicone (Alum-Mag Hydrox-Simeth [id number]/5ml) 30 ml PO Q4H PRN PRN Reason: Indigestion Albuterol (Proventil) 2.5 mg IH Q3HRT PRN PRN Reason: Shortness Of Breath Albuterol/Ipratropium (Duoneb *Not For Prn Use*) 1 ampul IH Q6HRT AYLEEN Alprazolam (Xanax) 0.25 mg PO Q8H PRN PRN Reason: Anxiety Lipase/Protease/Amylase (Pancreaze Dr 10,500 Unit) 1 each FEEDTUBE PRN PRN PRN Reason: For Clogged Feeding Tube Bisacodyl (Dulcolax) 10 mg AK QDAY PRN PRN Reason: constipation unrelieved by MOM Diphenhydramine HCl (Benadryl) 12.5 mg PO Q6HR PRN PRN Reason: Allergy Symptoms Docusate Sodium (Colace) 100 mg PO BID AYLEEN Famotidine (Pepcid) 20 mg PO BID AYLEEN Folic Acid (Folvite) 1 mg PO QDAY AYLEEN Gabapentin (Neurontin) 400 mg PO TID AYLEEN Azithromycin 500 mg/ Sodium (Chloride) 250 mls @ 250 mls/hr IV ONCE.ED ONE Stop: 08/25/17 23:59 Vancomycin HCl 1,250 mg/ (Sodium Chloride) 262.5 mls @ 166.667 mls/hr IV ONCE.ED ONE Stop: 08/26/17 01:34 Vancomycin HCl (Vancomycin/Ns 1 Gm/250 Ml) 1 gm in 250 mls @ 166.667 mls/hr IV Q8H AYLEEN Sodium Chloride (Nacl 0.9% 1000 Ml) 1,000 mls @ 125 mls/hr IV DIRECT AYLEEN Levofloxacin/Dextrose (Levaquin 750mg/150ml) 750 mg in 150 mls @ 100 mls/hr IV Q24HR AYLEEN PRN Reason: Protocol Lacosamide (Vimpat) 100 mg PO BID AYLEEN Magnesium Hydroxide (Milk Of Magnesia) 30 ml PO Q4H PRN PRN Reason: Constipation Miscellaneous Medication (Alum-Mag Hydroxide-Simeth Liq) 15 ml PO Q4HR AYLEEN Miscellaneous Medication (Hydrocortisone [Adv Allergy Collection Kit]) 1 applic TRANSDERMA BID AYLEEN Miscellaneous Medication (Lactobacillus Acidophilus [Acidophilus Lactobacilli]) 1 each PO DAILY AYLEEN Morphine Sulfate (Morphine) 1 mg IV Q4H PRN PRN Reason: Pain, Moderate (4-6) Ondansetron HCl (Zofran) 4 mg IV Q8H PRN PRN Reason: N/V unrelieved by Reglan Oxycodone/Acetaminophen (Percocet 5/325) 1 tab PO Q6H PRN PRN Reason: Pain, Moderate (4-6) Pantoprazole Sodium (Protonix) 40 mg PO DAILY AYLEEN Senna (Senokot) 8.6 mg PO BID AYLEEN Sodium Bicarbonate (Sodium Bicarbonate) 325 mg FEEDTUBE PRN PRN PRN Reason: For Clogged Feeding Tube Vancomycin HCl (Vancomycin Pharmacy To Dose) 1 each IV PKCONSULT AYLEEN PRN Reason: Protocol Zolpidem Tartrate (Ambien) 5 mg PO QHS PRN PRN Reason: Sleeplessness Review of Systems All systems: negative Exam - Physical Exam Narrative exam: Gen: NAD, chronically ill appearing Head: nc/at Mouth: dry mucous membranes, poor dentition Neck: supple, no JVD CV: RRR Lungs: CTAB, non labored Abd: soft, nd, mild epigastric TTP, + g tube, no rebound guarding or rigidity. Normoactive bowel sounds. No hepatosplenomegaly. No abdominal masses or bruit appreciated Ext: contracted, no edema Neuro: oriented x 3 Psych: appropriate mood and affect - Constitutional Vitals: Temp Pulse Resp BP Pulse Ox 98.4 F 126 H 26 H 115/75 94 08/25/17 19:50 08/25/17 19:50 08/25/17 21:11 08/25/17 19:50 08/25/17 19:50 Results - Labs CBC & Chem 7: 08/26/17 03:55 08/25/17 19:46 Labs: Laboratory Last Values WBC 13.9 K/mm3 (4.5-11.0) H 08/25/17 19:46 RBC 5.06 M/mm3 (3.65-5.03) H 08/25/17 19:46 Hgb 13.1 gm/dl (10.1-14.3) 08/25/17 19:46 Hct 41.2 % (30.3-42.9) 08/25/17 19:46 MCV 82 fl (79-97) 08/25/17 19:46 MCH 26 pg (28-32) L 08/25/17 19:46 MCHC 32 % (30-34) 08/25/17 19:46 RDW 16.6 % (13.2-15.2) H 08/25/17 19:46 Plt Count 323 K/mm3 (140-440) 08/25/17 19:46 Lymph % (Auto) 29.1 % (13.4-35.0) 08/25/17 19:46 Wise % (Auto) 5.6 % (0.0-7.3) 08/25/17 19:46 Eos % (Auto) 0.1 % (0.0-4.3) 08/25/17 19:46 Baso % (Auto) 0.7 % (0.0-1.8) 08/25/17 19:46 Lymph # 4.0 K/mm3 (1.2-5.4) 08/25/17 19:46 Wise # 0.8 K/mm3 (0.0-0.8) 08/25/17 19:46 Eos # 0.0 K/mm3 (0.0-0.4) 08/25/17 19:46 Baso # 0.1 K/mm3 (0.0-0.1) 08/25/17 19:46 Seg Neutrophils % 64.5 % (40.0-70.0) 08/25/17 19:46 Seg Neutrophils # 9.0 K/mm3 (1.8-7.7) H 08/25/17 19:46 PT 14.8 Sec. (12.2-14.9) 08/25/17 19:46 INR 1.10 (0.87-1.13) 08/25/17 19:46 APTT 34.1 Sec. (24.2-36.6) 08/25/17 19:46 POC ABG pH 7.471 (7.35-7.45) H 08/25/17 20:51 POC ABG pCO2 36.2 (35-45) 08/25/17 20:51 POC ABG pO2 71 (80-105) L 08/25/17 20:51 POC ABG HCO3 26.4 08/25/17 20:51 POC ABG Total CO2 27 08/25/17 20:51 POC ABG O2 Sat 95 08/25/17 20:51 POC ABG Base Excess 3 08/25/17 20:51 FiO2 21 % 08/25/17 20:51 Sodium 145 mmol/L (137-145) 08/25/17 19:46 Potassium 3.6 mmol/L (3.6-5.0) 08/25/17 19:46 Chloride 102.7 mmol/L (98-107) 08/25/17 19:46 Carbon Dioxide 25 mmol/L (22-30) 08/25/17 19:46 Anion Gap 21 mmol/L 08/25/17 19:46 BUN 17 mg/dL (7-17) 08/25/17 19:46 Creatinine < 0.2 mg/dL (0.7-1.2) L 08/25/17 19:46 Estimated GFR > 60 ml/min 08/25/17 19:46 BUN/Creatinine Ratio 85 % 08/25/17 19:46 Glucose 83 mg/dL (65-100) 08/25/17 19:46 Lactic Acid 0.70 mmol/L (0.7-2.0) 08/25/17 20:54 Calcium 9.0 mg/dL (8.4-10.2) 08/25/17 19:46 Total Bilirubin 0.20 mg/dL (0.1-1.2) 08/25/17 19:46 AST 17 units/L (5-40) 08/25/17 19:46 ALT 12 units/L (7-56) 08/25/17 19:46 Alkaline Phosphatase 70 units/L (35-129) 08/25/17 19:46 Total Creatine Kinase 16 units/L (30-135) L 08/25/17 20:54 Total Protein 6.2 g/dL (6.3-8.2) L 08/25/17 19:46 Albumin 3.2 g/dL (3.9-5) L 08/25/17 19:46 Albumin/Globulin Ratio 1.1 % 08/25/17 19:46 Lipase 68 units/L (13-60) H 08/25/17 19:46 Urine Color Yellow (Yellow) 08/25/17 21:50 Urine Turbidity Clear (Clear) 08/25/17 21:50 Urine pH 5.0 (5.0-7.0) 08/25/17 21:50 Ur Specific [place] 1.025 (1.003-1.030) 08/25/17 21:50 Urine Protein <15 mg/dl mg/dL (Negative) 08/25/17 21:50 Urine Glucose (UA) Neg mg/dL (Negative) 08/25/17 21:50 Urine Ketones 20 mg/dL (Negative) 08/25/17 21:50 Urine Blood Neg (Negative) 08/25/17 21:50 Urine Nitrite Neg (Negative) 08/25/17 21:50 Urine Bilirubin Neg (Negative) 08/25/17 21:50 Urine Urobilinogen < 2.0 mg/dL (<2.0) 08/25/17 21:50 Ur Leukocyte Esterase Sm (Negative) 08/25/17 21:50 Urine WBC (Auto) 34.0 /HPF (0.0-6.0) H 08/25/17 21:50 Urine RBC (Auto) 2.0 /HPF (0.0-6.0) 08/25/17 21:50 U Epithel Cells (Auto) 1.0 /HPF (0-13.0) 08/25/17 21:50 Urine Bacteria (Auto) 1+ /HPF (Negative) 08/25/17 21:50 Urine Mucus 3+ /HPF 08/25/17 21:50 Blood Type B POSITIVE 08/25/17 19:46 - Imaging and Cardiology Imaging and Cardiology: EKG - showing Sinus tachycardia, 128 bpm, borderline left axis deviation, QTC prolonged, negative for acute ischemia or other arrhythmia Assessment and Plan Assessment and plan: Assessment and plan: --HCAP - bilateral multilobar PNA, empiric abx --Fever with leukocytosis - 2/2 PNA --Sepsis --Malfunctioning PEG; now PEG is in place, leaking. will get GI to evaluate the patient, resume tube feeding once OK with GI --Persistent nausea and vomiting; resolved --Aspiration pneumonia; closely monitor PEG feeds, aspiration precautions, continue antibiotics --h/o Seizure disorder; no new episodes continue current antiseizure medications --Spastic hemiplegia secondary to cerebral palsy supportive care --Moderate protein calorie malnutrition; Nutrition consult --h/o [place] Syndrome
[2017-08-25] MEDS ORDERED: VANCOMYCIN PHARMACY TO DOSE IV SCH (23:00)
[2017-08-25] MEDS ORDERED: ZITHROMAX 500 MG in NACL 0.9% 250ML 250 ML IV ONE (23:00)
[2017-08-25] MEDS ORDERED: NACL 0.9% 1000 ML 1,000 ML IV SCH (23:00)
[2017-08-26] MEDS ORDERED: VANCOMYCIN 1,250 MG in NACL 0.9% 250ML 250 ML IV ONE
[2017-08-26] MEDS ORDERED: ALUM-MAG HYDROX-SIMETH 200-200-20MG/5ML PO SCH (02:00)
[2017-08-26] MEDS: DUONEB *Not for PRN Use IH SCH ×4 (02:15→20:14)
[2017-08-26] MEDS ORDERED: NACL 0.9% 1000 ML 1,000 ML IV ONE (03:00)
--- NOTE | 2017-08-26 04:02 | Cat Scan Report ---
FINAL REPORT PROCEDURE: CT CHEST WO CON TECHNIQUE: Computerized axial tomography of the chest was performed without contrast material. This study is performed without intravenous contrast and the sensitivity for pathology, including neoplasms, adenopathy, abscess, pulmonary embolism and aortic dissection, is reduced. HISTORY: Bilateral PNA COMPARISON: No prior studies are available for comparison. TECHNICAL QUALITY: Satisfactory. FINDINGS: Heart and pericardium: The heart size is normal. There is a pericardial effusion.. Thoracic aorta: Normal. Pulmonary vasculature: Normal. Lymph nodes: No enlarged lymph nodes are seen. Lungs: There are bilateral lower lobe infiltrates greater on the left. There are infiltrates in the left upper lung. There is significant atelectasis of the left lower lung due to endobronchial obstruction possibly due to mucous aspiration. Endobronchial tumor cannot be entirely excluded. There are calcified granulomas in the left lower lung. . Pleural space: There is no pleural effusion or pneumothorax.. Musculoskeletal structures: No significant abnormality. Upper abdominal structures: Images of the upper abdomen demonstrate evidence of previous gastric surgery and cholecystectomy. There are bilateral kidney stones. There is an exophytic mass at the upper pole of the right kidney measuring 2 centimeters. This could be hemorrhagic cyst. Tumor cannot be excluded.. IMPRESSION: The heart size is normal. There is a pericardial effusion.. There are bilateral lower lobe infiltrates greater on the left. There are infiltrates in the left upper lung. There is significant atelectasis of the left lower lung due to endobronchial obstruction possibly due to mucous aspiration. Endobronchial tumor cannot be entirely excluded. There are calcified granulomas in the left lower lung. . There is no pleural effusion or pneumothorax.. There is an exophytic mass at the upper pole of the right kidney measuring 2 centimeters. This could be hemorrhagic cyst. Tumor cannot be excluded.. .
[2017-08-26] MEDS: MORPHINE IV PRN (04:13)
[2017-08-26 04:29] LABS: Hematocrit TNR % (30.3-42.9); Hemoglobin TNR gm/dl (10.1-14.3); Mean Corpuscular HGB Conc TNR % (30-34); Mean Corpuscular Hemoglobin TNR pg (28-32); Mean Corpuscular Volume TNR fl (79-97); Platelet Count TNR K/mm3 (140-440); Red Blood Count TNR M/mm3 (3.65-5.03); Red Cell Distribution Width TNR % (13.2-15.2)
[2017-08-26 04:30] LABS: Basophils # (Auto) TNR K/mm3 (0.0-0.1); Basophils % (Auto) TNR % (0.0-1.8); Eosinophils # (Auto) TNR K/mm3 (0.0-0.4); Eosinophils % (Auto) TNR % (0.0-4.3); Lymphocytes # (Auto) TNR K/mm3 (1.2-5.4); Lymphocytes % (Auto) TNR % (13.4-35.0); Monocytes # (Auto) TNR K/mm3 (0.0-0.8); Monocytes % (Auto) TNR % (0.0-7.3)
[2017-08-26] MEDS: D5NS 1,000 ML IV SCH ×2 (05:37→19:45)
[2017-08-26] MEDS: CLEOCIN 600 MG/50 mL 600 MG/50 ML BAG IV SCH ×2 (06:30→15:48)
[2017-08-26] MEDS: NEURONTIN PO SCH ×2 (09:30→17:22)
[2017-08-26] MEDS: FOLVITE PO SCH (09:40)
[2017-08-26] MEDS: VANCOMYCIN/NS 1 GM/250 ML 1 GM/250 ML BAG IV SCH ×2 (09:40→17:21)
[2017-08-26] MEDS ORDERED: NEURONTIN ONE (09:40)
--- NOTE | 2017-08-26 09:48 | Progress Note ---
Assessment and Plan Assessment and plan: Patient is a 37-year-old woman with a history of moderate malnutrition, cerebral palsy, [place] syndrome with quadriplegia status post trach currently with G-tube (she eats my mouth during day and use tube feeding at night- I asked why tube feeding at night when she eats?), chronic respiratory failure and seizure disorder who I had discharged on 08/11/2017 to [facility] after PEG tube re-adjustment and treatment for seizures. Patient returned 2 days later on 08/11/2017 with persistent nausea/vomiting resulting in aspiration pneumonia and was discharged to [facility] in [place], [place] on 08/18/2017, now returns 08/25/2017 with suspect GI bleed. Portable chest x-ray read as there is left lung volume loss/atelectasis with shift of the mediastinum to the left, bibasilar airspace opacity findings may be related to pneumonia cannot exclude left lung lobar atelectasis. CT of the chest without contrast read as heart size is normal, pericardial effusion, bilateral lower lobe temperature is greater on itself, demonstrating significant left upper alone, there is significant atelectasis of the left lower lung due to endobronchial obstruction possibly due to mucous aspiration, endobronchial tumor cannot be entirely excluded, there calcified granulomas in the left lower lung, there is no pleural effusion or pneumothorax, there is an exophytic mass of the upper pole of the right kidney measuring 2 cm, this could be hemorrhagic cysts, tumor cannot be excluded. CT abdomen and pelvis without contrast read as right lung base opacities are concerning for pneumonia, bilateral nonobstructing renal calculi -Sepsis due to bilateral aspiration pneumonia: Treated with IV antibiotics, infectious disease is not available, consult machine taper, questionable endobronchial obstruction -Reported GI Bleed with no anemia: Continue to follow H&H -Persistent nausea/vomiting leading to recurrent aspiration pneumonia: Consult GI, possible EGD, patient is eating by mouth, question removal of G-tube, will get speech evaluation/dietitian to see if she is getting enough calories and she has proper swallowing mechanism -Quadriplegia due to his cerebral palsy/[place] -Seizure disorder: continue antiepileptics Patient can be downgraded from ICU to medical surgical with remote The high probability of a clinically significant, sudden or life threatening deterioration of the [neurologic,cardiac] system(s) required my full and direct attention, intervention and personal management. The aggregate critical care time was [ 32 ] minutes. This time is in addition to time spent performing reported procedures but includes the following: [x] Data Review and interpretation [x] Patient assessment and monitoring of vital signs [x] Documentation [x] Medication orders and management Hospitalist Physical - Constitutional Vitals: Temp Pulse Resp BP Pulse Ox 99.3 F 110 H 20 107/69 96 08/26/17 03:00 08/26/17 08:31 08/26/17 08:31 08/26/17 07:00 08/26/17 07:00 Results - Labs CBC & Chem 7: 08/26/17 03:55 08/25/17 19:46 Labs: Laboratory Last Values WBC TNR 08/26/17 03:55 RBC TNR 08/26/17 03:55 Hgb TNR 08/26/17 03:55 Hct TNR 08/26/17 03:55 MCV TNR 08/26/17 03:55 MCH TNR 08/26/17 03:55 MCHC TNR 08/26/17 03:55 RDW TNR 08/26/17 03:55 Plt Count TNR 08/26/17 03:55 Lymph % (Auto) TNR 08/26/17 03:55 [place] % (Auto) TNR 08/26/17 03:55 Eos % (Auto) TNR 08/26/17 03:55 Baso % (Auto) TNR 08/26/17 03:55 Lymph # TNR 08/26/17 03:55 [place] # TNR 08/26/17 03:55 Eos # TNR 08/26/17 03:55 Baso # TNR 08/26/17 03:55 Seg Neutrophils % TNR 08/26/17 03:55 Seg Neutrophils # TNR 08/26/17 03:55 PT 14.8 Sec. (12.2-14.9) 08/25/17 19:46 INR 1.10 (0.87-1.13) 08/25/17 19:46 APTT 34.1 Sec. (24.2-36.6) 08/25/17 19:46 POC ABG pH 7.471 (7.35-7.45) H 08/25/17 20:51 POC ABG pCO2 36.2 (35-45) 08/25/17 20:51 POC ABG pO2 71 (80-105) L 08/25/17 20:51 POC ABG HCO3 26.4 08/25/17 20:51 POC ABG Total CO2 27 08/25/17 20:51 POC ABG O2 Sat 95 08/25/17 20:51 POC ABG Base Excess 3 08/25/17 20:51 FiO2 21 % 08/25/17 20:51 Sodium 145 mmol/L (137-145) 08/25/17 19:46 Potassium 3.6 mmol/L (3.6-5.0) 08/25/17 19:46 Chloride 102.7 mmol/L (98-107) 08/25/17 19:46 Carbon Dioxide 25 mmol/L (22-30) 08/25/17 19:46 Anion Gap 21 mmol/L 08/25/17 19:46 BUN 17 mg/dL (7-17) 08/25/17 19:46 Creatinine < 0.2 mg/dL (0.7-1.2) L 08/25/17 19:46 Estimated GFR > 60 ml/min 08/25/17 19:46 BUN/Creatinine Ratio 85 % 08/25/17 19:46 Glucose 83 mg/dL (65-100) 08/25/17 19:46 Lactic Acid 0.80 mmol/L (0.7-2.0) 08/25/17 23:45 Calcium 9.0 mg/dL (8.4-10.2) 08/25/17 19:46 Total Bilirubin 0.20 mg/dL (0.1-1.2) 08/25/17 19:46 AST 17 units/L (5-40) 08/25/17 19:46 ALT 12 units/L (7-56) 08/25/17 19:46 Alkaline Phosphatase 70 units/L (35-129) 08/25/17 19:46 Total Creatine Kinase 16 units/L (30-135) L 08/25/17 20:54 Total Protein 6.2 g/dL (6.3-8.2) L 08/25/17 19:46 Albumin 3.2 g/dL (3.9-5) L 08/25/17 19:46 Albumin/Globulin Ratio 1.1 % 08/25/17 19:46 Lipase 68 units/L (13-60) H 08/25/17 19:46 Urine Color Yellow (Yellow) 08/25/17 21:50 Urine Turbidity Clear (Clear) 08/25/17 21:50 Urine pH 5.0 (5.0-7.0) 08/25/17 21:50 Ur Specific [place] 1.025 (1.003-1.030) 08/25/17 21:50 Urine Protein <15 mg/dl mg/dL (Negative) 08/25/17 21:50 Urine Glucose (UA) Neg mg/dL (Negative) 08/25/17 21:50 Urine Ketones 20 mg/dL (Negative) 08/25/17 21:50 Urine Blood Neg (Negative) 08/25/17 21:50 Urine Nitrite Neg (Negative) 08/25/17 21:50 Urine Bilirubin Neg (Negative) 08/25/17 21:50 Urine Urobilinogen < 2.0 mg/dL (<2.0) 08/25/17 21:50 Ur Leukocyte Esterase Sm (Negative) 08/25/17 21:50 Urine WBC (Auto) 34.0 /HPF (0.0-6.0) H 08/25/17 21:50 Urine RBC (Auto) 2.0 /HPF (0.0-6.0) 08/25/17 21:50 U Epithel Cells (Auto) 1.0 /HPF (0-13.0) 08/25/17 21:50 Urine Bacteria (Auto) 1+ /HPF (Negative) 08/25/17 21:50 Urine Mucus 3+ /HPF 08/25/17 21:50 Blood Type B POSITIVE 08/25/17 19:46 Antibody Screen Positive 08/25/17 19:46
[2017-08-26] MEDS ORDERED: [UNRECOGNIZED DRUG - REMARK] TRANSDERMA SCH (10:00)
[2017-08-26] MEDS ORDERED: PEPCID PO SCH (10:00)
[2017-08-26] MEDS: LEVAQUIN 750MG/150ML 750 MG/150 ML BAG IV SCH (11:43)
--- NOTE | 2017-08-26 15:43 | Event Note ---
Date: 08/26/17 -full consult dictated - pt to have swallow eval in am - further rec based on results
[2017-08-26] MEDS: SENOKOT PO SCH (15:49)
[2017-08-26] MEDS: PROTONIX PO SCH (15:49)
[2017-08-26] MEDS: VIMPAT PO SCH (16:01)
[2017-08-26] MEDS: FLORANEX PO SCH (17:22)
[2017-08-26] MEDS: COLACE PO SCH (17:22)
--- NOTE | 2017-08-26 20:18 | Consultation ---
History of Present Illness Consult date: 08/26/17 Requesting physician: SANDRA TOLEDO Reason for consult: pneumonia (HCAP), other (Hemoptysis) History of present illness: PULMONARY/CCM CONSULT NOTE (Full notes dictated # [id number]) Please see dictated notes for full details Past History Past Medical History: diabetes, hypertension, seizures, other (asthma, Guillan [place], Cerebral Palsy, Seizure Disorder, Morbid Obesity, Sleep Apnea, Electrolyte Disorder, Dysautomia, Sinus Tachycardia, Dyshphagia, Cervical DJD, Lumbar DJD, Encephalopathy, Yeast Dermatitis, HTNm Hyperlipidemia, Anemia, Leukocytosis, Renal Mass, Bladder Spasm, Hyponatremia, Hypokalemia, Hypomagnesemia, Depresion/Anxiety, Fibrosis of the Liver, Chronic Respiratory Failure, Psuedoseizure, Rosacea, Diarrhea,) Past Surgical History: Other (Gastric Banding, saplingectomy, tracheostomy placement, status post PEG placement) Social history: full code. denies: smoking, alcohol abuse Family history: no significant family history Medications and Allergies Allergies Allergy/AdvReac Type Severity Reaction Status Date / Time amoxicillin Allergy Angioedema Verified 08/25/17 18:05 Penicillins Allergy Hives Verified 08/06/17 17:38 Home Medications Medication Instructions Recorded Confirmed Last Taken Type Acetaminophen [Acetaminophen TAB] 640 mg PO Q6HR 08/07/17 08/25/17 Unknown History Albuterol [Proventil Tab] 2.5 mg IH Q2HR PRN 08/07/17 08/25/17 Unknown History Alum-Mag Hydroxide-Simeth Liq 15 ml PO Q4HR 08/07/17 08/25/17 Unknown History Enoxaparin [Lovenox] 40 mg SQ DAILY 08/07/17 08/25/17 Unknown History Esomeprazole Magnesium 40 mg FEEDTUBE QHS 08/07/17 08/25/17 Unknown History Hydrocortisone [Adv Allergy 1 applic TRANSDERMA BID 08/07/17 08/25/17 Unknown History Collection Kit] Lactobacillus Acidophilus 1 each PO DAILY 08/07/17 08/25/17 Unknown History [Acidophilus Lactobacilli] diphenhydrAMINE [Benadryl ORAL LIQ] 12.5 mg PO Q6HR PRN 08/07/17 08/25/17 Unknown History Acetaminophen [Acetaminophen TAB] 650 mg PO Q4H PRN #30 tablet 08/11/17 Unknown Rx Antacid [Alum-Mag Hydrox-Simeth 15 ml PO Q4HR PRN #30 day 08/11/17 08/25/17 Unknown Rx [id number]] Lipase/Protease/Amylase [Pancreaze 1 each FEEDTUBE PRN PRN #30 capsule 08/11/17 08/25/[address] 10,500 Unit] Ondansetron [Zofran Oral Liq] 4 mg FEEDTUBE Q4H PRN #30 day 08/11/17 08/25/17 Unknown Rx Simple Syrup 15 ml FEEDTUBE PRN PRN #30 08/11/17 08/25/17 Unknown Rx oral.liqd Simple Syrup 30 ml FEEDTUBE PRN PRN #30 08/11/17 08/25/17 Unknown Rx oral.liqd Sodium Bicarbonate 325 mg FEEDTUBE PRN PRN #30 tablet 08/11/17 08/25/17 Unknown Rx ALPRAZolam [Xanax TAB] 0.25 mg FEEDTUBE TID PRN 30 Days 08/18/17 08/25/17 Unknown Rx #10 day Folic Acid [Folvite] 1 mg PO QDAY #30 tablet 08/18/17 08/25/17 Unknown Rx Gabapentin [Neurontin 250 mg/5 ml] 400 mg PO TID #90 oral.liqd 08/18/17 Unknown Rx Lacosamide [Vimpat] 100 mg PO BID #60 tablet 08/18/17 08/25/17 Unknown Rx oxyCODONE [Roxicodone TAB] 5 mg FEEDTUBE Q4HR 30 Days #30 08/18/17 08/25/17 Unknown Rx tablet ALBUTEROL NEB's [Proventil 0.083% 2.5 mg IH Q2HRT PRN 08/25/17 08/25/17 Unknown History NEBS] Pantoprazole [Protonix] 40 mg PO DAILY 08/25/17 08/25/17 Unknown History Active Meds: Active Medications Acetaminophen (Tylenol) 650 mg PO Q4H PRN PRN Reason: Pain MILD(1-3)/Fever >100.5/MCDONALD Al Hydrox/Mg Hydrox/Simethicone (Alum-Mag Hydrox-Simeth 079-717-18sl/5ml) 30 ml PO Q4H PRN PRN Reason: Indigestion Albuterol (Proventil) 2.5 mg IH Q3HRT PRN PRN Reason: Shortness Of Breath Albuterol/Ipratropium (Duoneb *Not For Prn Use*) 1 ampul IH Q6HRT [facility] Last Admin: 08/26/17 20:14 Dose: 1 ampul Alprazolam (Xanax) 0.25 mg PO Q8H PRN PRN Reason: Anxiety Lipase/Protease/Amylase (Pancreaze Dr 10,500 Unit) 1 each FEEDTUBE PRN PRN PRN Reason: For Clogged Feeding Tube Bisacodyl (Dulcolax) 10 mg NV QDAY PRN PRN Reason: constipation unrelieved by MOM Diphenhydramine HCl (Benadryl) 12.5 mg PO Q6H PRN PRN Reason: Allergy Symptoms Docusate Sodium (Colace) 100 mg PO BID [facility] Last Admin: 08/26/17 17:22 Dose: 100 mg Folic Acid (Folvite) 1 mg PO QDAY [facility] Last Admin: 08/26/17 09:40 Dose: 1 mg Gabapentin (Neurontin) 400 mg PO TID [facility] Last Admin: 08/26/17 17:22 Dose: 400 mg Vancomycin HCl (Vancomycin/Ns 1 Gm/250 Ml) 1 gm in 250 mls @ 166.667 mls/hr IV Q8H [facility] Last Admin: 08/26/17 17:21 Dose: 166.667 mls/hr Sodium Chloride (Nacl 0.9% 1000 Ml) 1,000 mls @ 125 mls/hr IV DIRECT AYLEEN Levofloxacin/Dextrose (Levaquin 750mg/150ml) 750 mg in 150 mls @ 100 mls/hr IV Q24HR [facility] PRN Reason: Protocol Last Admin: 08/26/17 11:43 Dose: 100 mls/hr Dextrose/Sodium Chloride (D5ns) 1,000 mls @ 125 mls/hr IV DIRECT [facility] Last Admin: 08/26/17 19:45 Dose: 125 mls/hr Clindamycin HCl (Cleocin 600 Mg/50 Ml) 600 mg in 50 mls @ 100 mls/hr IV Q8HR AYLEEN PRN Reason: Protocol Last Admin: 08/26/17 15:48 Dose: 100 mls/hr Lacosamide (Vimpat) 100 mg PO BID [facility] Last Admin: 08/26/17 16:01 Dose: 100 mg Lactobacillus Acidophilus (Floranex) 1 each PO DAILY [facility] Last Admin: 08/26/17 17:22 Dose: 1 each Magnesium Hydroxide (Milk Of Magnesia) 30 ml PO Q4H PRN PRN Reason: Constipation Morphine Sulfate (Morphine) 1 mg IV Q4H PRN PRN Reason: Pain, Moderate (4-6) Last Admin: 08/26/17 04:13 Dose: 1 mg Ondansetron HCl (Zofran) 4 mg IV Q8H PRN PRN Reason: N/V unrelieved by Reglan Oxycodone/Acetaminophen (Percocet 5/325) 1 tab PO Q6H PRN PRN Reason: Pain, Moderate (4-6) Pantoprazole (Protonix) 40 mg PO DAILY [facility] Last Admin: 08/26/17 15:49 Dose: 40 mg Senna (Senokot) 8.6 mg PO BID [facility] Last Admin: 08/26/17 15:49 Dose: 8.6 mg Sodium Bicarbonate (Sodium Bicarbonate) 325 mg FEEDTUBE PRN PRN PRN Reason: For Clogged Feeding Tube Vancomycin HCl (Vancomycin Pharmacy To Dose) 1 each IV PKCONSULT [facility] PRN Reason: Protocol Zolpidem Tartrate (Ambien) 5 mg PO QHS PRN PRN Reason: Sleeplessness Physical Examination Vital signs: Vital Signs Temp Pulse Resp BP Pulse Ox 97.5 F L 92 H 16 102/67 98 08/25/17 18:05 08/25/17 18:05 08/25/17 18:05 08/25/17 18:05 08/25/17 18:05 Results - Laboratory Findings CBC and BMP: 08/27/17 05:04 08/27/17 05:04 ABG POC ABG pH 7.471 (7.35-7.45) H 08/25/17 20:51 POC ABG pCO2 36.2 (35-45) 08/25/17 20:51 POC ABG pO2 71 (80-105) L 08/25/17 20:51 POC ABG HCO3 26.4 08/25/17 20:51 POC ABG Total CO2 27 08/25/17 20:51 POC ABG O2 Sat 95 08/25/17 20:51 PT/INR, D-dimer PT 14.8 Sec. (12.2-14.9) 08/25/17 19:46 INR 1.10 (0.87-1.13) 08/25/17 19:46 Abnormal lab findings: Abnormal Labs 08/25/17 08/25/17 08/25/17 19:46 19:46 20:51 WBC 13.9 H RBC 5.06 H MCH 26 L RDW 16.6 H Seg Neutrophils # 9.0 H POC ABG pH 7.471 H POC ABG pO2 71 L Creatinine < 0.2 L Total Creatine Kinase Total Protein 6.2 L Albumin 3.2 L Lipase 68 H Urine WBC (Auto) 08/25/17 08/25/17 20:54 21:50 WBC RBC MCH RDW Seg Neutrophils # POC ABG pH POC ABG pO2 Creatinine Total Creatine Kinase 16 L Total Protein Albumin Lipase Urine WBC (Auto) 34.0 H
[2017-08-27] MEDS: DUONEB *Not for PRN Use IH SCH ×4 (02:08→20:12)
[2017-08-27] MEDS: CLEOCIN 600 MG/50 mL 600 MG/50 ML BAG IV SCH ×4 (02:23→22:47)
[2017-08-27] MEDS: VANCOMYCIN/NS 1 GM/250 ML 1 GM/250 ML BAG IV SCH ×2 (02:27→08:00)
[2017-08-27] MEDS: D5NS 1,000 ML IV SCH (02:29)
[2017-08-27] MEDS: SENOKOT PO SCH ×2 (02:30→10:00)
[2017-08-27] MEDS: VIMPAT PO SCH ×2 (02:31→13:19)
[2017-08-27] MEDS: NEURONTIN PO SCH ×4 (02:31→20:59)
[2017-08-27] MEDS: COLACE PO SCH ×2 (02:31→10:00)
[2017-08-27] MEDS: MORPHINE IV PRN ×2 (02:55→23:06)
[2017-08-27 05:47] LABS: Hematocrit 30.9 % (30.3-42.9); Hemoglobin 10.4 gm/dl (10.1-14.3); Mean Corpuscular HGB Conc 34 % (30-34); Mean Corpuscular Hemoglobin 27 pg (28-32); Mean Corpuscular Volume 80 fl (79-97); Platelet Count 232 K/mm3 (140-440); Red Blood Count 3.85 M/mm3 (3.65-5.03)
[2017-08-27 06:08] LABS: BUN/Creatinine Ratio 15; Blood Urea Nitrogen 3 mg/dL (7-17); Calcium 8.3 mg/dL (8.4-10.2); Hemolysis Index 45
[2017-08-27] MEDS ORDERED: POTASSIUM CHLORIDE FEEDTUBE ONE ×2 (07:14→10:00)
[2017-08-27] MEDS: D5W/NS W/KCL 40MEQ 40 MEQ/1,000 ML BAG IV SCH (08:10)
--- NOTE | 2017-08-27 09:37 | Consultation ---
INDICATION: 1. Nausea. 2. Dysphagia. HISTORY OF PRESENT ILLNESS: The patient is a 37-year-old white female with history of seizure disorder, Guillain-Follansbee, cerebral palsy as well as obesity, status post PEG tube placement. The patient had been seen recently for possible aspiration. The patient presented now with nausea, vomiting. Per patient, she feels as if she is able to eat, but at night she gets tube feeds. The patient is status post reported gastric sleeve, and because of that, she feels as if she is getting overfed and that is leading to her get nausea. The patient has been diagnosed recently with pneumonia. There is a question whether or not the patient may be aspirating. The patient herself would like to eat and stopped using the tube feed altogether. She denies any other specific GI problems or complaints. PAST MEDICAL HISTORY: 1. Diabetes. 2. Hypertension. 3. Seizure disorder. 4. Guillain-Follansbee. 5. Cerebral palsy. 6. Sleep apnea. PAST SURGICAL HISTORY: 1. Status post gastric banding. 2. Status post tracheostomy. 3. Status post PEG. MEDICATIONS: See chart. ALLERGIES: AMOXICILLIN, PENICILLIN. SOCIAL HISTORY: Lives in a care facility. FAMILY HISTORY: Negative for colon cancer. REVIEW OF SYSTEMS: GENERAL: Reports weakness. HEENT: No visual complaints or tinnitus. PULMONARY: Reports mild shortness of breath. CARDIOVASCULAR: No chest pain. GASTROINTESTINAL: Reports mild nausea. All points of 13-point review of systems otherwise negative. PHYSICAL EXAMINATION: VITAL SIGNS: Temperature of 98.5, pulse 100, respirations 20, blood pressure 108/78. GENERAL: Fairly thin female in no acute distress. HEENT: Pupils equal, round, reactive. PULMONARY: Rhonchi. CARDIOVASCULAR: Regular rhythm. ABDOMEN: Soft. SKIN: No obvious rashes. LABORATORY DATA: White count of 13.9, hemoglobin and hematocrit 13.1 and 41.2, platelet count of 323. Coags within normal limits. Chem-7 within normal limits. LFTs within normal limits. CT abdomen and pelvis showed bilateral lung base opacities concerning for pneumonia. ASSESSMENT AND PLAN: A 37-year-old female with multiple medical problems as noted above and status post PEG tube, now presents for nausea. The patient also was noted to have anemia, but her H and H is stable. She denies any signs of bleeding. The patient herself wants to eat. There is a report that she is able to tolerate food during the day, but that has not been substantiated and only has been taking tube feeds at night. The patient feels tube feeds at night is too much and, given her previous gastric surgery, leading to her having nausea, especially given the evening and night. She herself would like to fully eat. Management as noted below. PLAN: 1. The patient has been seen by Speech Therapy and is to have swallow eval in the morning. Concur with that. 2. We would make n.p.o. except for sips. 3. We will review CT scan. 4. No plans for endoscopic evaluation at this time. 5. We will wait a swallow evaluation results and consider further intervention thereof. JOB# [id number] WALLY/NINA
[2017-08-27] MEDS: LEVAQUIN 750MG/150ML 750 MG/150 ML BAG IV SCH (10:00)
--- NOTE | 2017-08-27 10:36 | Fluoroscopy Report ---
MODIFIED BARIUM SWALLOW: 08/27/17 08:00:00 CLINICAL: Quadriplegia and aspiration pneumonia. FINDINGS: The patient ingested barium impregnated substances of varying consistencies and swallowing was observed fluoroscopically. Significant findings include no laryngeal penetration and no laryngeal aspiration. IMPRESSION: Negative study. For more detail, please refer to the speech pathologist's report.
--- NOTE | 2017-08-27 12:00 | Gastroenterology Progress Note ---
Assessment and Plan - Patient Problems (1) Aspiration pneumonia Current Visit: No Status: Acute Plan to address problem: Patient had MBS today. The fluoro report by the radiologist revealed no aspiration. Speech therapy report is still pending. Diet has apparently been ordered and will therefore assess tolerance and volume of intake before removing the G tube assuming cleared by ST. 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 Objective - Constitutional Vitals: Temp Pulse Resp BP Pulse Ox 92.8 F L 99 H 16 109/69 98 08/27/17 00:21 08/27/17 08:25 08/27/17 08:25 08/27/17 00:21 08/27/17 08:12 General appearance: no acute distress - EENT ENT: hearing intact, clear oral mucosa - Respiratory Respiratory effort: normal Respiratory: bilateral: CTA - Cardiovascular Rhythm: regular - Gastrointestinal General gastrointestinal: Present: soft, non-tender, non-distended, normal bowel sounds - Neurologic Neurological: alert and oriented x3 - Labs CBC & Chem 7: 08/27/17 05:04 08/27/17 05:04 Labs: Laboratory Results - last 24 hr 08/26/17 08/27/17 08/27/17 22:28 05:04 05:04 WBC 6.4 RBC 3.85 Hgb 10.4 Hct 30.9 D MCV 80 MCH 27 L MCHC 34 RDW 16.0 H Plt Count 232 Sodium 144 Potassium 2.4 L* D Chloride 104.8 Carbon Dioxide 27 Anion Gap 15 BUN 3 L Creatinine < 0.2 L Estimated GFR > 60 BUN/Creatinine Ratio 15 Glucose 105 H POC Glucose 116 H Calcium 8.3 L Magnesium 1.40 L Vancomycin Trough 08/27/17 08/27/17 06:36 08:46 WBC RBC Hgb Hct MCV MCH MCHC RDW Plt Count Sodium Potassium Chloride Carbon Dioxide Anion Gap BUN Creatinine Estimated GFR BUN/Creatinine Ratio Glucose POC Glucose 88 Calcium Magnesium Vancomycin Trough 27.1 H
[2017-08-27] MEDS: FLORANEX PO SCH (13:15)
[2017-08-27] MEDS: FOLVITE PO SCH (13:19)
[2017-08-27] MEDS: PROTONIX PO SCH (13:20)
--- NOTE | 2017-08-27 13:56 | Progress Note ---
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 Patient returned 2 days later on 08/11/2017 with persistent nausea/vomiting resulting in aspiration pneumonia and was discharged to [facility] in [place], [place] on 08/18/2017, now returns 08/25/2017 with suspect GI bleed. Portable chest x-ray read as there is left lung volume loss/atelectasis with shift of the mediastinum to the left, bibasilar airspace opacity findings may be related to pneumonia cannot exclude left lung lobar atelectasis. CT of the chest without contrast read as heart size is normal, pericardial effusion, bilateral lower lobe temperature is greater on itself, demonstrating significant left upper alone, there is significant atelectasis of the left lower lung due to endobronchial obstruction possibly due to mucous aspiration, endobronchial tumor cannot be entirely excluded, there calcified granulomas in the left lower lung, there is no pleural effusion or pneumothorax, there is an exophytic mass of the upper pole of the right kidney measuring 2 cm, this could be hemorrhagic cysts, tumor cannot be excluded. CT abdomen and pelvis without contrast read as right lung base opacities are concerning for pneumonia, bilateral nonobstructing renal calculi -Sepsis due to bilateral aspiration pneumonia: Treated with IV antibiotics, infectious disease is not available, consult obiee obia solution architect, questionable endobronchial obstruction -Reported GI Bleed with no anemia: Continue to follow H&H -Persistent nausea/vomiting leading to recurrent aspiration pneumonia: Consult GI, possible EGD, patient is eating by mouth, question removal of G-tube, will get speech evaluation/dietitian to see if she is getting enough calories and she has proper swallowing mechanism -Quadriplegia due to his cerebral palsy/Broadus Chaidez -Seizure disorder: continue antiepileptics Modified barium already pending, discussed with GI History Interval history: Patient was seen and examined. Follow-up on current diagnosis. Overnight uneventful. Patient denies any chest pain, shortness breath, nausea/vomiting or severe headaches. Imaging, nursing note, chart, labs and old chart reviewed. Discussed with patient. Hospitalist Physical - Physical exam Narrative exam: GEN: WDWN, NAD, AWAKE, ALERT, ORIENTATED 3 HEENT: NCAT, EOMI, PERRL, OP Clear NECK: supple, no adenopathy, no thyromegaly, no JVD, old healed trach site CVS/HEART: Regular tachycardia NORMAL S1S2, NO JVD, pulses present bilaterally CHEST/LUNGS: Course breath sounds bilaterally Symmetrical chest expansion, good air entry bilaterally GI/Abdomen: soft, NTND, PEG tube in place good bowel sounds, no guarding or rebound /Bladder: no suprapubic tenderness, no CVA or paraspinal tenderness EXT/Skin: no c/c/e, no obvious rash MSK: Quadriplegic Neuro: CN 2-12 grossly intact, no new focal deficits Psych: calm - Constitutional Vitals: Temp Pulse Resp BP Pulse Ox 92.8 F L 99 H 16 109/69 98 08/27/17 00:21 08/27/17 08:25 08/27/17 08:25 08/27/17 00:21 08/27/17 08:12 Results - Labs CBC & Chem 7: 08/27/17 05:04 08/27/17 05:04 Labs: Laboratory Last Values WBC 6.4 K/mm3 (4.5-11.0) 08/27/17 05:04 RBC 3.85 M/mm3 (3.65-5.03) 08/27/17 05:04 Hgb 10.4 gm/dl (10.1-14.3) 08/27/17 05:04 Hct 30.9 % (30.3-42.9) D 08/27/17 05:04 MCV 80 fl (79-97) 08/27/17 05:04 MCH 27 pg (28-32) L 08/27/17 05:04 MCHC 34 % (30-34) 08/27/17 05:04 RDW 16.0 % (13.2-15.2) H 08/27/17 05:04 Plt Count 232 K/mm3 (140-440) 08/27/17 05:04 Lymph % (Auto) TNR 08/26/17 03:55 [place] % (Auto) TNR 08/26/17 03:55 Eos % (Auto) TNR 08/26/17 03:55 Baso % (Auto) TNR 08/26/17 03:55 Lymph # TNR 08/26/17 03:55 [place] # TNR 08/26/17 03:55 Eos # TNR 08/26/17 03:55 Baso # TNR 08/26/17 03:55 Seg Neutrophils % TNR 08/26/17 03:55 Seg Neutrophils # TNR 08/26/17 03:55 PT 14.8 Sec. (12.2-14.9) 08/25/17 19:46 INR 1.10 (0.87-1.13) 08/25/17 19:46 APTT 34.1 Sec. (24.2-36.6) 08/25/17 19:46 POC ABG pH 7.471 (7.35-7.45) H 08/25/17 20:51 POC ABG pCO2 36.2 (35-45) 08/25/17 20:51 POC ABG pO2 71 (80-105) L 08/25/17 20:51 POC ABG HCO3 26.4 08/25/17 20:51 POC ABG Total CO2 27 08/25/17 20:51 POC ABG O2 Sat 95 08/25/17 20:51 POC ABG Base Excess 3 08/25/17 20:51 FiO2 21 % 08/25/17 20:51 Sodium 144 mmol/L (137-145) 08/27/17 05:04 Potassium 2.4 mmol/L (3.6-5.0) L* D 08/27/17 05:04 Chloride 104.8 mmol/L (98-107) 08/27/17 05:04 Carbon Dioxide 27 mmol/L (22-30) 08/27/17 05:04 Anion Gap 15 mmol/L 08/27/17 05:04 BUN 3 mg/dL (7-17) L 08/27/17 05:04 Creatinine < 0.2 mg/dL (0.7-1.2) L 08/27/17 05:04 Estimated GFR > 60 ml/min 08/27/17 05:04 BUN/Creatinine Ratio 15 % 08/27/17 05:04 Glucose 105 mg/dL (65-100) H 08/27/17 05:04 POC Glucose 105 (70-105) 08/27/17 12:24 Lactic Acid 0.80 mmol/L (0.7-2.0) 08/25/17 23:45 Calcium 8.3 mg/dL (8.4-10.2) L 08/27/17 05:04 Magnesium 1.40 mg/dL (1.7-2.3) L 08/27/17 05:04 Total Bilirubin 0.20 mg/dL (0.1-1.2) 08/25/17 19:46 AST 17 units/L (5-40) 08/25/17 19:46 ALT 12 units/L (7-56) 08/25/17 19:46 Alkaline Phosphatase 70 units/L (35-129) 08/25/17 19:46 Total Creatine Kinase 16 units/L (30-135) L 08/25/17 20:54 Total Protein 6.2 g/dL (6.3-8.2) L 08/25/17 19:46 Albumin 3.2 g/dL (3.9-5) L 08/25/17 19:46 Albumin/Globulin Ratio 1.1 % 08/25/17 19:46 Lipase 68 units/L (13-60) H 08/25/17 19:46 Urine Color Yellow (Yellow) 08/25/17 21:50 Urine Turbidity Clear (Clear) 08/25/17 21:50 Urine pH 5.0 (5.0-7.0) 08/25/17 21:50 Ur Specific [place] 1.025 (1.003-1.030) 08/25/17 21:50 Urine Protein <15 mg/dl mg/dL (Negative) 08/25/17 21:50 Urine Glucose (UA) Neg mg/dL (Negative) 08/25/17 21:50 Urine Ketones 20 mg/dL (Negative) 08/25/17 21:50 Urine Blood Neg (Negative) 08/25/17 21:50 Urine Nitrite Neg (Negative) 08/25/17 21:50 Urine Bilirubin Neg (Negative) 08/25/17 21:50 Urine Urobilinogen < 2.0 mg/dL (<2.0) 08/25/17 21:50 Ur Leukocyte Esterase Sm (Negative) 08/25/17 21:50 Urine WBC (Auto) 34.0 /HPF (0.0-6.0) H 08/25/17 21:50 Urine RBC (Auto) 2.0 /HPF (0.0-6.0) 08/25/17 21:50 U Epithel Cells (Auto) 1.0 /HPF (0-13.0) 08/25/17 21:50 Urine Bacteria (Auto) 1+ /HPF (Negative) 08/25/17 21:50 Urine Mucus 3+ /HPF 08/25/17 21:50 Vancomycin Trough 27.1 ug/mL (5.0-20.0) H 08/27/17 08:46 Blood Type B POSITIVE 08/25/17 19:46 Antibody Screen Positive 08/25/17 19:46
[2017-08-27] MEDS ORDERED: ZOFRAN IV PRN (16:33)
--- NOTE | 2017-08-27 20:48 | Progress Note ---
Assessment and Plan Patient isin deep sleep . sleeping on BIPAP. 08/03, rate 20, FIO2 30%. Tolerating good. O2 saturation 95%. - Patient Problems (1) Sepsis Current Visit: Yes Status: Acute Plan to address problem: Patient is on Levofloxacin and clindamycin. (2) Aspiration pneumonia Current Visit: No Status: Acute Plan to address problem: Patient is on levaquine and clindamycin. (3) Pulmonary infiltrate Current Visit: No Status: Acute Plan to address problem: Patient is on Levaquine and clinda mycin. (4) Respiratory failure Current Visit: No Status: Acute Plan to address problem: On BIPAP 08/03, rate 20, FIO2 30%. Albuterol/atrovent aerosol treatments q 6 hours. Continue S/C Lovenox. Continue Protonix. 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 Subjective Date of service: 08/27/17 Principal diagnosis: Dysphagia Interval history: Patient isin deep sleep . sleeping on BIPAP. 08/03, rate 20, FIO2 30%. Tolerating good. O2 saturation 95%. Objective Vital Signs - 12hr 08/27/17 08/27/17 08/27/17 10:00 14:35 14:45 Temperature Pulse Rate Pulse Rate [ 99 H 101 H Anterior Left Throughout] Respiratory 16 Rate Respiratory 16 16 Rate [Anterior Left Throughout ] Blood Pressure O2 Sat by Pulse Oximetry 08/27/17 08/27/17 08/27/17 15:14 20:00 20:07 Temperature 98.5 F 98.3 F Pulse Rate 116 H 102 H Pulse Rate [ 103 H Anterior Left Throughout] Respiratory 20 20 Rate Respiratory 16 Rate [Anterior Left Throughout ] Blood Pressure 121/66 118/66 O2 Sat by Pulse 97 98 Oximetry 08/27/17 08/27/17 20:13 20:25 Temperature Pulse Rate Pulse Rate [ 104 H Anterior Left Throughout] Respiratory Rate Respiratory 16 Rate [Anterior Left Throughout ] Blood Pressure O2 Sat by Pulse 98 Oximetry Constitutional: no acute distress, asleep Eyes: non-icteric ENT: oropharynx moist Neck: supple, no lymphadenopathy Ascultation: Left: diminished breath sounds (Left base.) Cardiovascular: regular rate and rhythm Gastrointestinal: normoactive bowel sounds, soft, non-tender Integumentary: normal Extremities: no cyanosis, no edema Neurologic: other (Sleeping at this time.) Psychiatric: other (Sleeping at this time) CBC and BMP: 08/27/17 05:04 08/27/17 05:04 ABG, PT/INR, D-dimer: ABG POC ABG pH 7.471 (7.35-7.45) H 08/25/17 20:51 POC ABG pCO2 36.2 (35-45) 08/25/17 20:51 POC ABG pO2 71 (80-105) L 08/25/17 20:51 POC ABG HCO3 26.4 08/25/17 20:51 POC ABG Total CO2 27 08/25/17 20:51 POC ABG O2 Sat 95 08/25/17 20:51 PT/INR, D-dimer PT 14.8 Sec. (12.2-14.9) 08/25/17 19:46 INR 1.10 (0.87-1.13) 08/25/17 19:46 Abnormal lab findings: Abnormal Labs 08/25/17 08/25/17 08/25/17 19:46 19:46 20:51 WBC 13.9 H RBC 5.06 H MCH 26 L RDW 16.6 H Seg Neutrophils # 9.0 H POC ABG pH 7.471 H POC ABG pO2 71 L Potassium BUN Creatinine < 0.2 L Glucose POC Glucose Calcium Magnesium Total Creatine Kinase C-Reactive Protein Total Protein 6.2 L Albumin 3.2 L Lipase 68 H Urine WBC (Auto) Vancomycin Trough 08/25/17 08/25/17 08/26/17 20:54 21:50 22:28 WBC RBC MCH RDW Seg Neutrophils # POC ABG pH POC ABG pO2 Potassium BUN Creatinine Glucose POC Glucose 116 H Calcium Magnesium Total Creatine Kinase 16 L C-Reactive Protein Total Protein Albumin Lipase Urine WBC (Auto) 34.0 H Vancomycin Trough 08/27/17 08/27/17 08/27/17 05:04 05:04 08:46 WBC RBC MCH 27 L RDW 16.0 H Seg Neutrophils # POC ABG pH POC ABG pO2 Potassium 2.4 L* D BUN 3 L Creatinine < 0.2 L Glucose 105 H POC Glucose Calcium 8.3 L Magnesium 1.40 L Total Creatine Kinase C-Reactive Protein Total Protein Albumin Lipase Urine WBC (Auto) Vancomycin Trough 27.1 H 08/27/17 08/27/17 16:55 19:24 WBC RBC MCH RDW Seg Neutrophils # POC ABG pH POC ABG pO2 Potassium BUN Creatinine Glucose POC Glucose 114 H Calcium Magnesium Total Creatine Kinase C-Reactive Protein 4.20 H Total Protein Albumin Lipase Urine WBC (Auto) Vancomycin Trough Chest x-ray: report reviewed (Volume loss left side, Atelectasis. Bibasilalr pulmonary opacities.), image reviewed CT scan - chest: report reviewed, image reviewed (Atelectasis left side mucus plugging or endobronchial lesion.)
[2017-08-28] MEDS: D5W/NS W/KCL 40MEQ 40 MEQ/1,000 ML BAG IV SCH ×3 (00:06→18:00)
[2017-08-28] MEDS: COLACE PO SCH ×2 (00:07→12:50)
[2017-08-28] MEDS: SENOKOT PO SCH ×2 (00:08→12:51)
[2017-08-28] MEDS: VIMPAT PO SCH ×2 (00:08→14:32)
[2017-08-28] MEDS: DUONEB *Not for PRN Use IH SCH ×4 (02:25→21:03)
[2017-08-28] MEDS: MORPHINE IV PRN ×2 (03:24→12:53)
[2017-08-28] MEDS: CLEOCIN 600 MG/50 mL 600 MG/50 ML BAG IV SCH ×2 (05:57→14:31)
--- NOTE | 2017-08-28 07:19 | Gastroenterology Progress Note ---
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 Intake so far does not seem adequate. Would restart tube feeds and continue to evaluate her swallowing ability and intake. Subjective Date of service: 08/28/17 Principal diagnosis: Dysphagia Interval history: The patient reports not eating much yesterday. Objective - Exam Narrative Exam: Sleeping. On BIPAP device. Easily arousable. - Constitutional Vitals: Temp Pulse Resp BP Pulse Ox 99.3 F 101 H 24 109/73 99 08/27/17 23:43 08/28/17 02:48 08/28/17 02:48 08/27/17 23:43 08/28/17 01:29 General appearance: no acute distress - EENT ENT: hearing intact - Neck Neck: supple, normal ROM - Respiratory Respiratory effort: normal Respiratory: bilateral: CTA - Cardiovascular Rhythm: regular - Extremities Extremities: pulses intact, No edema, normal color, Full ROM - Gastrointestinal General gastrointestinal: Present: soft, non-tender, non-distended, normal bowel sounds - Neurologic Neurological: oriented to person, oriented to place - Labs CBC & Chem 7: 08/27/17 05:04 08/27/17 05:04 Labs: Laboratory Results - last 24 hr 08/27/17 08/27/17 08/27/17 08:46 12:24 16:55 POC Glucose 105 114 H C-Reactive Protein Vancomycin Trough 27.1 H 08/27/17 08/27/17 08/28/17 19:24 21:57 06:51 POC Glucose 110 H 90 C-Reactive Protein 4.20 H Vancomycin Trough
[2017-08-28] MEDS: NEURONTIN PO SCH ×2 (09:12→14:32)
[2017-08-28] MEDS ORDERED: LOVENOX SUB-Q SCH (10:00)
[2017-08-28] MEDS: LEVAQUIN 750MG/150ML 750 MG/150 ML BAG IV SCH (10:14)
[2017-08-28] MEDS ORDERED: MAGNESIUM SULFATE 2GM/50ML 2 GM/50 ML BAG IV ONE (10:47)
[2017-08-28] MEDS ORDERED: POTASSIUM CHLORIDE FEEDTUBE ONE (10:48)
[2017-08-28] MEDS ORDERED: PANCREAZE DR 10,500 UNIT FEEDTUBE PRN (11:29)
[2017-08-28] MEDS ORDERED: SODIUM BICARBONATE FEEDTUBE PRN (11:29)
[2017-08-28] MEDS ORDERED: SIMPLE SYRUP FEEDTUBE PRN ×2 (11:29)
[2017-08-28 12:25] LABS: BUN/Creatinine Ratio 15; Blood Urea Nitrogen 3 mg/dL (7-17); Calcium 8.1 mg/dL (8.4-10.2); Hemolysis Index 2
[2017-08-28] MEDS: FLORANEX PO SCH (12:50)
[2017-08-28] MEDS: LOVENOX SUB-Q SCH (12:50)
[2017-08-28] MEDS: FOLVITE PO SCH (12:50)
[2017-08-28] MEDS: PROTONIX PO SCH (12:51)
[2017-08-28] MEDS: REGLAN IV PRN (12:53)
--- NOTE | 2017-08-28 16:59 | Progress Note ---
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 Patient returned 2 days later on 08/11/2017 with persistent nausea/vomiting resulting in aspiration pneumonia and was discharged to [facility] in [place], [place] on 08/18/2017, now returns 08/25/2017 with suspect GI bleed. Portable chest x-ray read as there is left lung volume loss/atelectasis with shift of the mediastinum to the left, bibasilar airspace opacity findings may be related to pneumonia cannot exclude left lung lobar atelectasis. CT of the chest without contrast read as heart size is normal, pericardial effusion, bilateral lower lobe temperature is greater on itself, demonstrating significant left upper alone, there is significant atelectasis of the left lower lung due to endobronchial obstruction possibly due to mucous aspiration, endobronchial tumor cannot be entirely excluded, there calcified granulomas in the left lower lung, there is no pleural effusion or pneumothorax, there is an exophytic mass of the upper pole of the right kidney measuring 2 cm, this could be hemorrhagic cysts, tumor cannot be excluded. CT abdomen and pelvis without contrast read as right lung base opacities are concerning for pneumonia, bilateral nonobstructing renal calculi -Sepsis due to bilateral aspiration pneumonia: Treated with IV antibiotics, infectious disease is not available, consult tire balancer, questionable endobronchial obstruction -Reported GI Bleed with no anemia: Continue to follow H&H -Persistent nausea/vomiting leading to recurrent aspiration pneumonia: Consult GI, possible EGD, patient is eating by mouth, question removal of G-tube, will get speech evaluation/dietitian to see if she is getting enough calories and she has proper swallowing mechanism -Quadriplegia due to his cerebral palsy/Isa Chaidez -Seizure disorder: continue antiepileptics Modified barium already pending, discussed with GI 08/28/17: I sat down and had a long discussion with Mother, Dilia, who reports that patient had multiple bronchoscopies for obstruction. She has also undergoing EGD with dilation at [facility]. I requested old records from [facility] and [facility] at [facility]. Mother is fixed on removing peg tube , despite patient continued n/v. Mother is fixed on daughter being kicked out of [facility] at [facility] to [facility]. Mother says patient was ambulatory (couple of steps) with walker until March 2017 when whe was admitted to [facility] then transferred to [facility] then discharged to [facility] at [facility]. Bronchoscopy is planned. History Interval history: Patient was seen and examined. Follow-up on current diagnosis. Overnight uneventful. Patient denies any chest pain, shortness breath, nausea/vomiting or severe headaches. Imaging, nursing note, chart, labs and old chart reviewed. Discussed with patient. Hospitalist Physical - Physical exam Narrative exam: GEN: WDWN, NAD, AWAKE, ALERT, ORIENTATED 3 HEENT: NCAT, EOMI, PERRL, OP Clear NECK: supple, no adenopathy, no thyromegaly, no JVD, old healed trach site CVS/HEART: Regular tachycardia NORMAL S1S2, NO JVD, pulses present bilaterally CHEST/LUNGS: Course breath sounds bilaterally Symmetrical chest expansion, good air entry bilaterally GI/Abdomen: soft, NTND, PEG tube in place good bowel sounds, no guarding or rebound /Bladder: no suprapubic tenderness, no CVA or paraspinal tenderness EXT/Skin: no c/c/e, no obvious rash MSK: Quadriplegic Neuro: CN 2-12 grossly intact, no new focal deficits Psych: calm - Constitutional Vitals: Temp Pulse Resp BP Pulse Ox 98.0 F 110 H 19 105/65 98 08/28/17 15:32 08/28/17 15:32 08/28/17 15:32 08/28/17 15:32 08/28/17 15:32 Results - Labs CBC & Chem 7: 08/27/17 05:04 08/28/17 11:22 Labs: Laboratory Last Values WBC 6.4 K/mm3 (4.5-11.0) 08/27/17 05:04 RBC 3.85 M/mm3 (3.65-5.03) 08/27/17 05:04 Hgb 10.4 gm/dl (10.1-14.3) 08/27/17 05:04 Hct 30.9 % (30.3-42.9) D 08/27/17 05:04 MCV 80 fl (79-97) 08/27/17 05:04 MCH 27 pg (28-32) L 08/27/17 05:04 MCHC 34 % (30-34) 08/27/17 05:04 RDW 16.0 % (13.2-15.2) H 08/27/17 05:04 Plt Count 232 K/mm3 (140-440) 08/27/17 05:04 Lymph % (Auto) TNR 08/26/17 03:55 [place] % (Auto) TNR 08/26/17 03:55 Eos % (Auto) TNR 08/26/17 03:55 Baso % (Auto) TNR 08/26/17 03:55 Lymph # TNR 08/26/17 03:55 [place] # TNR 08/26/17 03:55 Eos # TNR 08/26/17 03:55 Baso # TNR 08/26/17 03:55 Seg Neutrophils % TNR 08/26/17 03:55 Seg Neutrophils # TNR 08/26/17 03:55 PT 14.8 Sec. (12.2-14.9) 08/25/17 19:46 INR 1.10 (0.87-1.13) 08/25/17 19:46 APTT 34.1 Sec. (24.2-36.6) 08/25/17 19:46 POC ABG pH 7.471 (7.35-7.45) H 08/25/17 20:51 POC ABG pCO2 36.2 (35-45) 08/25/17 20:51 POC ABG pO2 71 (80-105) L 08/25/17 20:51 POC ABG HCO3 26.4 08/25/17 20:51 POC ABG Total CO2 27 08/25/17 20:51 POC ABG O2 Sat 95 08/25/17 20:51 POC ABG Base Excess 3 08/25/17 20:51 FiO2 21 % 08/25/17 20:51 Sodium 148 mmol/L (137-145) H 08/28/17 11:22 Potassium 3.1 mmol/L (3.6-5.0) L D 08/28/17 11:22 Chloride 112.7 mmol/L (98-107) H 08/28/17 11:22 Carbon Dioxide 24 mmol/L (22-30) 08/28/17 11:22 Anion Gap 14 mmol/L 08/28/17 11:22 BUN 3 mg/dL (7-17) L 08/28/17 11:22 Creatinine < 0.2 mg/dL (0.7-1.2) L 08/28/17 11:22 Estimated GFR > 60 ml/min 08/28/17 11:22 BUN/Creatinine Ratio 15 % 08/28/17 11:22 Glucose 124 mg/dL (65-100) H 08/28/17 11:22 POC Glucose 125 (70-105) H 08/28/17 15:35 Lactic Acid 0.80 mmol/L (0.7-2.0) 08/25/17 23:45 Calcium 8.1 mg/dL (8.4-10.2) L 08/28/17 11:22 Magnesium 1.40 mg/dL (1.7-2.3) L 08/27/17 05:04 Total Bilirubin 0.20 mg/dL (0.1-1.2) 08/25/17 19:46 AST 17 units/L (5-40) 08/25/17 19:46 ALT 12 units/L (7-56) 08/25/17 19:46 Alkaline Phosphatase 70 units/L (35-129) 08/25/17 19:46 Total Creatine Kinase 16 units/L (30-135) L 08/25/17 20:54 C-Reactive Protein 4.20 mg/dL (0.00-1.30) H 08/27/17 19:24 Total Protein 6.2 g/dL (6.3-8.2) L 08/25/17 19:46 Albumin 3.2 g/dL (3.9-5) L 08/25/17 19:46 Albumin/Globulin Ratio 1.1 % 08/25/17 19:46 Lipase 68 units/L (13-60) H 08/25/17 19:46 Urine Color Yellow (Yellow) 08/25/17 21:50 Urine Turbidity Clear (Clear) 08/25/17 21:50 Urine pH 5.0 (5.0-7.0) 08/25/17 21:50 Ur Specific Gray 1.025 (1.003-1.030) 08/25/17 21:50 Urine Protein <15 mg/dl mg/dL (Negative) 08/25/17 21:50 Urine Glucose (UA) Neg mg/dL (Negative) 08/25/17 21:50 Urine Ketones 20 mg/dL (Negative) 08/25/17 21:50 Urine Blood Neg (Negative) 08/25/17 21:50 Urine Nitrite Neg (Negative) 08/25/17 21:50 Urine Bilirubin Neg (Negative) 08/25/17 21:50 Urine Urobilinogen < 2.0 mg/dL (<2.0) 08/25/17 21:50 Ur Leukocyte Esterase Sm (Negative) 08/25/17 21:50 Urine WBC (Auto) 34.0 /HPF (0.0-6.0) H 08/25/17 21:50 Urine RBC (Auto) 2.0 /HPF (0.0-6.0) 08/25/17 21:50 U Epithel Cells (Auto) 1.0 /HPF (0-13.0) 08/25/17 21:50 Urine Bacteria (Auto) 1+ /HPF (Negative) 08/25/17 21:50 Urine Mucus 3+ /HPF 08/25/17 21:50 Vancomycin Trough 27.1 ug/mL (5.0-20.0) H 08/27/17 08:46 Blood Type B POSITIVE 08/25/17 19:46 Antibody Screen Positive 08/25/17 19:46
--- NOTE | 2017-08-28 18:52 | Consultation ---
Pulmonary Critical Care Consultation CONSULTING PHYSICIAN: Dr. Andrews, senior application security consultant for healthcare-associated pneumonia and hemoptysis, followed by a consult from Dr. Galeana for endobronchial obstruction. CHIEF COMPLAINT AND HISTORY OF PRESENTG ILLNESS: The patient is a 37-year-old female with past medical history significant for morbid obesity that was followed by weight loss surgery and soon thereafter I believe she has had complications since then. She has a baseline mental retardation history, I believe secondary to cerebral palsy. She was brought into the Emergency Room for a possible GI bleed. She thought that she threw up some blood, but was not sure. She was complaining of epigastric abdominal pain. The pain was sharp, did not radiate anywhere. It was reproducible with palpation. She had a cough. According to her mother in the room at the time of my evaluation, she has not noticed any hemoptysis and does not know where the story came about with regards to blood or GI bleeding. She was febrile and was evaluated in the Emergency Room. At the end by evaluation, imaging revealed a left lower lobe process/pneumonia and she was admitted to the medical floor with a diagnosis of sepsis. We were asked to evaluate for possible ICU admission and hemoptysis. When I stopped by to see her, she was resting in bed, denied any acute chest pain, a little difficult to arouse at times. Mother said that patient intermittently awakes from sleep, is agitated and then goes right back to sleep. The patient as far as I can tell is not a current tobacco smoker and a remote history is unknown. The above is as much of the history of presentation as I have. PAST MEDICAL HISTORY: Again, diabetes, hypertension, seizure disorder, Guillain-[place], cerebral palsy, sleep apnea, dysautonomia, oropharyngeal dysphagia, cervical degenerative disk disease as well as lumbar, hyperlipidemia, renal mass, history of bladder spasms, history of depression/anxiety, chronic respiratory failure status post tracheostomy in the past with decannulation, history of rosacea. PAST SURGICAL HISTORY: She had gastric banding surgery. She had a salpingectomy, a tracheostomy was placed at a point and she has also had a percutaneous endoscopic gastrostomy tube placed. MEDICATIONS: She was on at the time I stopped by to see were reviewed, pertinent medications include: She was on p.r.n. Tylenol 650 mg p.o. q.4 hours p.r.n. mild pain and fevers, DuoNeb treatments nebulized q. 6 hours, Xanax 0.25 mg p.o. q. 8 hours p.r.n. anxiety, clindamycin 600 mg IV q.8 hours, lacosamide 100 mg p.o. b.i.d., Levaquin 750 mg IV daily, morphine sulfate 1 mg IV q. 4 hours p.r.n. moderate pain, Protonix 40 mg p.o. daily and vancomycin. She received a 1 gram dose and is being dosed by pharmacy 1 gram q.8 for now, IV. ALLERGIES: PENICILLINS. Nature of this allergy is unknown. DIET: Slightly obese lady. Apparently weighed a whole lot more in the past. FAMILY AND SOCIAL HISTORY: No current alcohol, tobacco, or illicit drug use or abuse. Family history, otherwise noncontributory. REVIEW OF SYSTEMS: Attempts to obtain complete review of systems were fraught with the fact that she was not able to give me much of a history. As far as I know since she has been here, no gross hematochezia or melena, no gross hematuria. She denies dysuria. No hematemesis. Has actually been weakness. No hemoptysis, there has been weakness. No seizures. Complete review of systems is otherwise unobtainable or as in the body of the history above. PHYSICAL EXAMINATION: VITAL SIGNS: At presentation in the Emergency Room, review of the vital signs shows that she was afebrile, temperature 98.8 Fahrenheit with a pulse of 116, respiratory rate of 18, blood pressure of 134/88, oxygen sats were 94%, inspired oxygen concentration was not recorded. She has been mostly afebrile since admission. GENERAL: She is slightly obese female, looks her stated age, lying in bed, normocephalic, atraumatic, in mild respiratory distress. HEAD, EYES, EARS, NOSE AND THROAT: She is anicteric. No conjunctival erythema. She has a scar over healed prior tracheostomy scar. No thyromegaly, no gross jugular venous distention. Oropharynx is moist. Grossly, no palpable lymph nodes in the supraclavicular or submandibular lymph node chains. LUNGS: Auscultation of both lung chaudhary significant for right lower lobe rales, diminished left lower lobe air entry. No wheezing. HEART: Heart sounds 1 and 2 are heard at the time of my evaluation, regular rate and rhythm. No rubs, no murmurs. ABDOMEN: Soft, full, bowel sounds are positive. She has a PEG tube in place and around the left upper quadrant region. It has just been cleaned, but no bleeding or exudation around it. No palpable hepatosplenomegaly. EXTREMITIES: Without overt digital clubbing, no cyanosis, no pedal edema. Dorsalis pedis pulses were palpable bilaterally. NEUROLOGIC: She had a left hemiparesis without spasticity or fasciculations. Pupils were equal, round, about 6 mm, reactive to light. The skin was of normal turgor. No cellulitis, no rash. LABORATORY DATA: From my review are as follows: Admission white cell count was 13,900 with a hemoglobin of 13.1, hematocrit of 41.2, platelet count of 323. INR 1.10. Arterial blood gas showed a pH of 7.47, pCO2 of 36, pO2 of 71 that was on room air. Serum sodium was 145, potassium 3.6, chloride 103, bicarbonate 25, BUN 17, creatinine 0.2 and a glucose of 83. Liver function tests essentially within normal limits. Lipase was high. Serum lipase was high at 68. Urinalysis showed small leukocyte esterase of 34 white cells per high power field. Microbiology studies, no growth to date. Stool occult blood was done, it was negative. Radiographic studies have been reviewed. I have also reviewed the radiologist's interpretation and essentially I do agree with it. Main finding is some deviation of the mediastinum towards the left side. I do see what is likely food debris in the distal trachea extending into the left mainstem with cut off of the airway few centimeters down the left mainstem and then consolidated lung tissue. There is a slight area of left upper lobe that is aerated. The right lower lobe also shows area of developing atelectasis/infiltrate. The long windows show some element of motion artifact. Otherwise, no major findings that I can see. No significant mediastinal adenopathy. ASSESSMENT AND PLAN: 1. Acute hypoxemic respiratory failure. 2. Bilateral pneumonia, most likely aspiration related. 3. Oropharyngeal dysphagia. 4. Elevated lipase levels. 5. History of seizure disorder. 6. History of sleep apnea. 7. History of Guillain-[place] syndrome. 8. History of cerebral palsy. 9. History of a renal mass. 10. Depression/anxiety. PLAN: 1. Keep patient n.p.o. 2. Deploy bilevel positive air pressure ventilation therapy at bedtime to try and see if we can splint open her airways. 3. Long-term plan will be to get a bronchoscopy done. 4. Suction of airways and hopefully to relieve the atelectasis. 5. Continue empiric antibiotic therapy and deescalate based on the results of clinical and microbiologic data. I will go ahead and order a CRP level and trend as necessary. Oxygen will be weaned to keep sats greater than or equal to about 90%. Aspiration precautions will be maintained. She is appropriately on GI prophylaxis. She will be placed on DVT prophylaxis. Flu and pneumonia vaccination will be per protocol. Thank you very much for the consult Dr. Andrews. We will follow along. We will make further recommendations as picture progresses/becomes clearer. JOB# [id number] TATIANA/NINA
--- NOTE | 2017-08-28 21:37 | Progress Note ---
Assessment and Plan Patient awake. Resting on 2 litres O2. O2 saturation 97%. No acute respiratory distress. Patient goes on BIPAP. 12/6, rate 20, FIO2 30% during night time. . - Patient Problems (1) Sepsis Current Visit: Yes Status: Acute Plan to address problem: Patient is on Levofloxacin and clindamycin. (2) Aspiration pneumonia Current Visit: No Status: Acute Plan to address problem: Patient is on levaquine and clindamycin. (3) Pulmonary infiltrate Current Visit: No Status: Acute Plan to address problem: Patient is on Levaquine and clinda mycin. (4) Respiratory failure Current Visit: No Status: Acute Plan to address problem: On BIPAP 12/6, rate 20, FIO2 30%. Albuterol/atrovent aerosol treatments q 6 hours. Continue S/C Lovenox. Continue Protonix. 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 Subjective Date of service: 08/28/17 Principal diagnosis: Dysphagia Interval history: Patient awake. Resting on 2 litres O2. O2 saturation 97%. No acute respiratory distress. Patient goes on BIPAP. 12/6, rate 20, FIO2 30% during night time. Objective Vital Signs - 12hr 08/28/17 08/28/17 08/28/17 10:00 14:47 14:55 Temperature Pulse Rate 97 H Pulse Rate [ 103 H 103 H Anterior Bilateral Throughout] Respiratory Rate Respiratory 20 20 Rate [Anterior Bilateral Throughout] Blood Pressure O2 Sat by Pulse Oximetry 08/28/17 08/28/17 08/28/17 15:32 21:03 21:16 Temperature 98.0 F Pulse Rate 110 H Pulse Rate [ 107 H 103 H Anterior Bilateral Throughout] Respiratory 19 Rate Respiratory 16 16 Rate [Anterior Bilateral Throughout] Blood Pressure 105/65 O2 Sat by Pulse 98 97 Oximetry Constitutional: no acute distress, asleep Eyes: non-icteric ENT: oropharynx moist Neck: supple, no lymphadenopathy Ascultation: Left: diminished breath sounds (Left base.) Cardiovascular: regular rate and rhythm Gastrointestinal: normoactive bowel sounds, soft, non-tender Integumentary: normal Extremities: no cyanosis, no edema Neurologic: other (Sleeping at this time.) Psychiatric: other (Sleeping at this time) CBC and BMP: 08/29/17 07:54 08/29/17 07:54 ABG, PT/INR, D-dimer: ABG POC ABG pH 7.471 (7.35-7.45) H 08/25/17 20:51 POC ABG pCO2 36.2 (35-45) 08/25/17 20:51 POC ABG pO2 71 (80-105) L 08/25/17 20:51 POC ABG HCO3 26.4 08/25/17 20:51 POC ABG Total CO2 27 08/25/17 20:51 POC ABG O2 Sat 95 08/25/17 20:51 PT/INR, D-dimer PT 14.8 Sec. (12.2-14.9) 08/25/17 19:46 INR 1.10 (0.87-1.13) 08/25/17 19:46 Abnormal lab findings: Abnormal Labs 08/25/17 08/25/17 08/25/17 19:46 19:46 20:51 WBC 13.9 H RBC 5.06 H MCH 26 L RDW 16.6 H Seg Neutrophils # 9.0 H POC ABG pH 7.471 H POC ABG pO2 71 L Sodium Potassium Chloride BUN Creatinine < 0.2 L Glucose POC Glucose Calcium Magnesium Total Creatine Kinase C-Reactive Protein Total Protein 6.2 L Albumin 3.2 L Lipase 68 H Urine WBC (Auto) Vancomycin Trough 08/25/17 08/25/17 08/26/17 20:54 21:50 22:28 WBC RBC MCH RDW Seg Neutrophils # POC ABG pH POC ABG pO2 Sodium Potassium Chloride BUN Creatinine Glucose POC Glucose 116 H Calcium Magnesium Total Creatine Kinase 16 L C-Reactive Protein Total Protein Albumin Lipase Urine WBC (Auto) 34.0 H Vancomycin Trough 08/27/17 08/27/17 08/27/17 05:04 05:04 08:46 WBC RBC MCH 27 L RDW 16.0 H Seg Neutrophils # POC ABG pH POC ABG pO2 Sodium Potassium 2.4 L* D Chloride BUN 3 L Creatinine < 0.2 L Glucose 105 H POC Glucose Calcium 8.3 L Magnesium 1.40 L Total Creatine Kinase C-Reactive Protein Total Protein Albumin Lipase Urine WBC (Auto) Vancomycin Trough 27.1 H 08/27/17 08/27/17 08/27/17 16:55 19:24 21:57 WBC RBC MCH RDW Seg Neutrophils # POC ABG pH POC ABG pO2 Sodium Potassium Chloride BUN Creatinine Glucose POC Glucose 114 H 110 H Calcium Magnesium Total Creatine Kinase C-Reactive Protein 4.20 H Total Protein Albumin Lipase Urine WBC (Auto) Vancomycin Trough 08/28/17 08/28/17 08/28/17 11:22 11:43 15:35 WBC RBC MCH RDW Seg Neutrophils # POC ABG pH POC ABG pO2 Sodium 148 H Potassium 3.1 L D Chloride 112.7 H BUN 3 L Creatinine < 0.2 L Glucose 124 H POC Glucose 127 H 125 H Calcium 8.1 L Magnesium Total Creatine Kinase C-Reactive Protein Total Protein Albumin Lipase Urine WBC (Auto) Vancomycin Trough
[2017-08-29] MEDS: DUONEB *Not for PRN Use IH SCH ×4 (01:55→19:33)
[2017-08-29] MEDS: SENOKOT PO SCH ×3 (02:31→22:29)
[2017-08-29] MEDS: NEURONTIN PO SCH ×4 (02:31→22:25)
[2017-08-29] MEDS: COLACE PO SCH ×3 (02:31→22:29)
[2017-08-29] MEDS: CLEOCIN 600 MG/50 mL 600 MG/50 ML BAG IV SCH (03:01)
[2017-08-29] MEDS: D5W IV SCH ×4 (03:11→22:00)
[2017-08-29] MEDS: VIMPAT PO SCH ×3 (03:11→22:29)
[2017-08-29] MEDS: CLEOCIN IV SCH ×4 (03:11→22:00)
[2017-08-29] MEDS: D5W/NS W/KCL 40MEQ 40 MEQ/1,000 ML BAG IV SCH (06:38)
[2017-08-29 08:13] LABS: Hemoglobin 11.4 gm/dl (10.1-14.3); Mean Corpuscular HGB Conc 32 % (30-34); Mean Corpuscular Hemoglobin 26 pg (28-32); Mean Corpuscular Volume 82 fl (79-97); Platelet Count 232 K/mm3 (140-440); Red Blood Count 4.39 M/mm3 (3.65-5.03); Red Cell Distribution Width 16.3 % (13.2-15.2)
[2017-08-29 08:47] LABS: Calcium 8.2 mg/dL (8.4-10.2); Hemolysis Index 26
[2017-08-29 08:57] LABS: BUN/Creatinine Ratio 5; Blood Urea Nitrogen < 1 mg/dL (7-17)
[2017-08-29] MEDS: LEVAQUIN 750MG/150ML 750 MG/150 ML BAG IV SCH (11:01)
[2017-08-29] MEDS: PROTONIX PO SCH (11:02)
[2017-08-29] MEDS: FLORANEX PO SCH (11:02)
[2017-08-29] MEDS: FOLVITE PO SCH (11:04)
[2017-08-29] MEDS: LOVENOX SUB-Q SCH (11:04)
[2017-08-29] MEDS: REGLAN IV PRN (11:07)
--- NOTE | 2017-08-29 13:30 | Progress Note ---
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 Patient returned 2 days later on 08/11/2017 with persistent nausea/vomiting resulting in aspiration pneumonia and was discharged to [facility] in [place], [place] on 08/18/2017, now returns 08/25/2017 with suspect GI bleed. Portable chest x-ray read as there is left lung volume loss/atelectasis with shift of the mediastinum to the left, bibasilar airspace opacity findings may be related to pneumonia cannot exclude left lung lobar atelectasis. CT of the chest without contrast read as heart size is normal, pericardial effusion, bilateral lower lobe temperature is greater on itself, demonstrating significant left upper alone, there is significant atelectasis of the left lower lung due to endobronchial obstruction possibly due to mucous aspiration, endobronchial tumor cannot be entirely excluded, there calcified granulomas in the left lower lung, there is no pleural effusion or pneumothorax, there is an exophytic mass of the upper pole of the right kidney measuring 2 cm, this could be hemorrhagic cysts, tumor cannot be excluded. CT abdomen and pelvis without contrast read as right lung base opacities are concerning for pneumonia, bilateral nonobstructing renal calculi -Sepsis due to bilateral aspiration pneumonia with mucus plug: Treated with IV antibiotics, infectious disease is not available, consult textile engineer, questionable endobronchial obstruction -R/o GI Bleed with no anemia: Continue to follow H&H -Persistent nausea/vomiting leading to recurrent aspiration pneumonia: Consult GI, possible EGD, patient is eating by mouth, question removal of G-tube, will get speech evaluation/dietitian to see if she is getting enough calories and she has proper swallowing mechanism -Quadriplegia due to his cerebral palsy/Isa Chaidez -Seizure disorder: continue antiepileptics Modified barium done discussed with GI 08/28/17: I sat down and had a long discussion with Mother at bedside, who reports that patient had multiple bronchoscopies for obstruction. She has also undergoing EGD with dilation at [facility]. I requested old records from [facility] and [facility]. Mother is fixed on removing peg tube , despite patient continued n/v. Mother is fixed on daughter being kicked out of [facility] at [facility] to [facility]. Mother says patient was ambulatory (couple of steps) with walker until March 2017 when whe was admitted to [facility] then transferred to [facility] then discharged to [facility] at [facility]. Bronchoscopy is planned. 08/29/2017: Still with nausea/vomiting, will make NPO, d/w GI, Dr. Bah. Downgrade diet, make npo. Await records from [facility]. Also, low grade temp. History Interval history: Patient was seen and examined. Follow-up on current diagnosis. Overnight uneventful. Patient denies any chest pain, shortness breath, or severe headaches. Imaging, nursing note, chart, labs and old chart reviewed. +n/v, she wants the Gtube out Hospitalist Physical - Physical exam Narrative exam: GEN: WDWN, NAD, AWAKE, ALERT, ORIENTATED 3 HEENT: NCAT, EOMI, PERRL, OP Clear NECK: supple, no adenopathy, no thyromegaly, no JVD, old healed trach site CVS/HEART: Regular tachycardia NORMAL S1S2, NO JVD, pulses present bilaterally CHEST/LUNGS: Course breath sounds bilaterally Symmetrical chest expansion, good air entry bilaterally GI/Abdomen: soft, NTND, PEG tube in place good bowel sounds, no guarding or rebound /Bladder: no suprapubic tenderness, no CVA or paraspinal tenderness EXT/Skin: no c/c/e, no obvious rash MSK: Quadriplegic Neuro: CN 2-12 grossly intact, no new focal deficits Psych: calm - Constitutional Vitals: Temp Pulse Resp BP Pulse Ox 100.0 F H 94 H 18 92/59 96 08/29/17 07:11 08/29/17 13:21 08/29/17 13:21 08/29/17 07:11 08/29/17 07:57 Results - Labs CBC & Chem 7: 08/29/17 07:54 08/29/17 07:54 Labs: Laboratory Last Values WBC 12.0 K/mm3 (4.5-11.0) H 08/29/17 07:54 RBC 4.39 M/mm3 (3.65-5.03) 08/29/17 07:54 Hgb 11.4 gm/dl (10.1-14.3) 08/29/17 07:54 Hct 36.0 % (30.3-42.9) 08/29/17 07:54 MCV 82 fl (79-97) 08/29/17 07:54 MCH 26 pg (28-32) L 08/29/17 07:54 MCHC 32 % (30-34) 08/29/17 07:54 RDW 16.3 % (13.2-15.2) H 08/29/17 07:54 Plt Count 232 K/mm3 (140-440) 08/29/17 07:54 Lymph % (Auto) TNR 08/26/17 03:55 [place] % (Auto) TNR 08/26/17 03:55 Eos % (Auto) TNR 08/26/17 03:55 Baso % (Auto) TNR 08/26/17 03:55 Lymph # TNR 08/26/17 03:55 [place] # TNR 08/26/17 03:55 Eos # TNR 08/26/17 03:55 Baso # TNR 08/26/17 03:55 Seg Neutrophils % TNR 08/26/17 03:55 Seg Neutrophils # TNR 08/26/17 03:55 PT 14.8 Sec. (12.2-14.9) 08/25/17 19:46 INR 1.10 (0.87-1.13) 08/25/17 19:46 APTT 34.1 Sec. (24.2-36.6) 08/25/17 19:46 POC ABG pH 7.471 (7.35-7.45) H 08/25/17 20:51 POC ABG pCO2 36.2 (35-45) 08/25/17 20:51 POC ABG pO2 71 (80-105) L 08/25/17 20:51 POC ABG HCO3 26.4 08/25/17 20:51 POC ABG Total CO2 27 08/25/17 20:51 POC ABG O2 Sat 95 08/25/17 20:51 POC ABG Base Excess 3 08/25/17 20:51 FiO2 21 % 08/25/17 20:51 Sodium 145 mmol/L (137-145) 08/29/17 07:54 Potassium 3.6 mmol/L (3.6-5.0) 08/29/17 07:54 Chloride 107.7 mmol/L (98-107) H 08/29/17 07:54 Carbon Dioxide 22 mmol/L (22-30) 08/29/17 07:54 Anion Gap 19 mmol/L 08/29/17 07:54 BUN < 1 mg/dL (7-17) L 08/29/17 07:54 Creatinine < 0.2 mg/dL (0.7-1.2) L 08/29/17 07:54 Estimated GFR > 60 ml/min 08/29/17 07:54 BUN/Creatinine Ratio 5 % 08/29/17 07:54 Glucose 120 mg/dL (65-100) H 08/29/17 07:54 POC Glucose 136 (70-105) H 08/29/17 11:39 Lactic Acid 0.80 mmol/L (0.7-2.0) 08/25/17 23:45 Calcium 8.2 mg/dL (8.4-10.2) L 08/29/17 07:54 Magnesium 1.80 mg/dL (1.7-2.3) 08/29/17 07:54 Total Bilirubin 0.20 mg/dL (0.1-1.2) 08/25/17 19:46 AST 17 units/L (5-40) 08/25/17 19:46 ALT 12 units/L (7-56) 08/25/17 19:46 Alkaline Phosphatase 70 units/L (35-129) 08/25/17 19:46 Total Creatine Kinase 16 units/L (30-135) L 08/25/17 20:54 C-Reactive Protein 4.20 mg/dL (0.00-1.30) H 08/27/17 19:24 Total Protein 6.2 g/dL (6.3-8.2) L 08/25/17 19:46 Albumin 3.2 g/dL (3.9-5) L 08/25/17 19:46 Albumin/Globulin Ratio 1.1 % 08/25/17 19:46 Lipase 68 units/L (13-60) H 08/25/17 19:46 Urine Color Yellow (Yellow) 08/25/17 21:50 Urine Turbidity Clear (Clear) 08/25/17 21:50 Urine pH 5.0 (5.0-7.0) 08/25/17 21:50 Ur Specific [place] 1.025 (1.003-1.030) 08/25/17 21:50 Urine Protein <15 mg/dl mg/dL (Negative) 08/25/17 21:50 Urine Glucose (UA) Neg mg/dL (Negative) 08/25/17 21:50 Urine Ketones 20 mg/dL (Negative) 08/25/17 21:50 Urine Blood Neg (Negative) 08/25/17 21:50 Urine Nitrite Neg (Negative) 08/25/17 21:50 Urine Bilirubin Neg (Negative) 08/25/17 21:50 Urine Urobilinogen < 2.0 mg/dL (<2.0) 08/25/17 21:50 Ur Leukocyte Esterase Sm (Negative) 08/25/17 21:50 Urine WBC (Auto) 34.0 /HPF (0.0-6.0) H 08/25/17 21:50 Urine RBC (Auto) 2.0 /HPF (0.0-6.0) 08/25/17 21:50 U Epithel Cells (Auto) 1.0 /HPF (0-13.0) 08/25/17 21:50 Urine Bacteria (Auto) 1+ /HPF (Negative) 08/25/17 21:50 Urine Mucus 3+ /HPF 08/25/17 21:50 Vancomycin Trough 4.0 ug/mL (5.0-20.0) L 08/29/17 07:54 Blood Type B POSITIVE 08/25/17 19:46 Antibody Screen Positive 08/25/17 19:46
--- NOTE | 2017-08-29 13:53 | Gastroenterology Progress Note ---
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 Galeana who will obtain the records from [facility] endoscopy a few months ago. (4) Nausea and vomiting Current Visit: Yes Status: Acute Plan to address problem: Most likely due to partial GOO from migration of the G tube balloon bumper. The G tube was repositioned. Would continue mechanical soft diet and reassess symptoms and intake. Would not remove G tube unless intake is adequate. Subjective Date of service: 08/29/17 Principal diagnosis: Dysphagia Interval history: The patient denies dysphagia, but has had nausea and vomiting Objective - Constitutional Vitals: Temp Pulse Resp BP Pulse Ox 100.0 F H 94 H 18 92/59 96 08/29/17 07:11 08/29/17 13:21 08/29/17 13:21 08/29/17 07:11 08/29/17 07:57 General appearance: no acute distress - EENT ENT: hearing intact, clear oral mucosa, dentition normal - Respiratory Respiratory effort: normal Respiratory: bilateral: CTA - Cardiovascular Rhythm: regular - Gastrointestinal General gastrointestinal: Present: soft, non-tender, non-distended, normal bowel sounds, other (G tube bumper at 8 cm oscar at the skin level. The balloon was deflated and the tube repositioned to 4 cm level and "snugged" with the external collar.) - Labs CBC & Chem 7: 08/29/17 07:54 08/29/17 07:54 Labs: Laboratory Results - last 24 hr 08/28/17 08/28/17 08/29/17 15:35 22:04 05:30 WBC RBC Hgb Hct MCV MCH MCHC RDW Plt Count Sodium Potassium Chloride Carbon Dioxide Anion Gap BUN Creatinine Estimated GFR BUN/Creatinine Ratio Glucose POC Glucose 125 H 119 H 150 H Calcium Magnesium Vancomycin Trough 08/29/17 08/29/17 08/29/17 07:54 07:54 07:54 WBC 12.0 H RBC 4.39 Hgb 11.4 Hct 36.0 MCV 82 MCH 26 L MCHC 32 RDW 16.3 H Plt Count 232 Sodium 145 Potassium 3.6 Chloride 107.7 H Carbon Dioxide 22 Anion Gap 19 BUN < 1 L Creatinine < 0.2 L Estimated GFR > 60 BUN/Creatinine Ratio 5 Glucose 120 H POC Glucose Calcium 8.2 L Magnesium 1.80 Vancomycin Trough 4.0 L 08/29/17 11:39 WBC RBC Hgb Hct MCV MCH MCHC RDW Plt Count Sodium Potassium Chloride Carbon Dioxide Anion Gap BUN Creatinine Estimated GFR BUN/Creatinine Ratio Glucose POC Glucose 136 H Calcium Magnesium Vancomycin Trough
--- NOTE | 2017-08-29 17:36 | Progress Note ---
Assessment and Plan Patient awake. Complaining Pain. On 2 litres O2. O2 saturation 96%. No acute respiratory distress. Patient goes on BIPAP. 12/6, rate 20, FIO2 30% during night time. . - Patient Problems (1) Sepsis Current Visit: Yes Status: Acute Plan to address problem: Patient is on Levofloxacin and clindamycin. (2) Aspiration pneumonia Current Visit: No Status: Acute Plan to address problem: Patient is on levaquine and clindamycin. (3) Pulmonary infiltrate Current Visit: No Status: Acute Plan to address problem: Patient is on Levaquine and clinda mycin. (4) Respiratory failure Current Visit: No Status: Acute Plan to address problem: On BIPAP 12/6, rate 20, FIO2 30%. Albuterol/atrovent aerosol treatments q 6 hours. Continue S/C Lovenox. Continue Protonix. 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 Subjective Date of service: 08/29/17 Principal diagnosis: Dysphagia Interval history: Patient awake. Complaining pain. On 2 litres O2. O2 saturation 96%. No acute respiratory distress. Patient goes on BIPAP. 12/6, rate 20, FIO2 30% during night time. Objective Vital Signs - 12hr 08/29/17 08/29/17 08/29/17 07:11 07:57 13:16 Temperature 100.0 F H Pulse Rate 127 H Pulse Rate [ 100 H 99 H Anterior Bilateral Throughout] Respiratory 16 Rate Respiratory 18 18 Rate [Anterior Bilateral Throughout] Blood Pressure 92/59 O2 Sat by Pulse 95 96 Oximetry 08/29/17 08/29/17 13:21 15:18 Temperature 98.1 F Pulse Rate Pulse Rate [ 94 H Anterior Bilateral Throughout] Respiratory 18 Rate Respiratory 18 Rate [Anterior Bilateral Throughout] Blood Pressure 106/64 O2 Sat by Pulse Oximetry Constitutional: no acute distress, alert Eyes: non-icteric ENT: oropharynx moist Neck: supple, no lymphadenopathy Ascultation: Left: diminished breath sounds (Left base.) Cardiovascular: regular rate and rhythm Gastrointestinal: normoactive bowel sounds, soft, non-tender Integumentary: normal Extremities: no cyanosis, no edema Neurologic: other (Sleeping at this time.) Psychiatric: other (Sleeping at this time) CBC and BMP: 08/29/17 07:54 08/29/17 07:54 ABG, PT/INR, D-dimer: ABG POC ABG pH 7.471 (7.35-7.45) H 08/25/17 20:51 POC ABG pCO2 36.2 (35-45) 08/25/17 20:51 POC ABG pO2 71 (80-105) L 08/25/17 20:51 POC ABG HCO3 26.4 08/25/17 20:51 POC ABG Total CO2 27 08/25/17 20:51 POC ABG O2 Sat 95 08/25/17 20:51 PT/INR, D-dimer PT 14.8 Sec. (12.2-14.9) 08/25/17 19:46 INR 1.10 (0.87-1.13) 08/25/17 19:46 Abnormal lab findings: Abnormal Labs 08/25/17 08/25/17 08/25/17 19:46 19:46 20:51 WBC 13.9 H RBC 5.06 H MCH 26 L RDW 16.6 H Seg Neutrophils # 9.0 H POC ABG pH 7.471 H POC ABG pO2 71 L Sodium Potassium Chloride BUN Creatinine < 0.2 L Glucose POC Glucose Calcium Magnesium Total Creatine Kinase C-Reactive Protein Total Protein 6.2 L Albumin 3.2 L Lipase 68 H Urine WBC (Auto) Vancomycin Trough 08/25/17 08/25/17 08/26/17 20:54 21:50 22:28 WBC RBC MCH RDW Seg Neutrophils # POC ABG pH POC ABG pO2 Sodium Potassium Chloride BUN Creatinine Glucose POC Glucose 116 H Calcium Magnesium Total Creatine Kinase 16 L C-Reactive Protein Total Protein Albumin Lipase Urine WBC (Auto) 34.0 H Vancomycin Trough 08/27/17 08/27/17 08/27/17 05:04 05:04 08:46 WBC RBC MCH 27 L RDW 16.0 H Seg Neutrophils # POC ABG pH POC ABG pO2 Sodium Potassium 2.4 L* D Chloride BUN 3 L Creatinine < 0.2 L Glucose 105 H POC Glucose Calcium 8.3 L Magnesium 1.40 L Total Creatine Kinase C-Reactive Protein Total Protein Albumin Lipase Urine WBC (Auto) Vancomycin Trough 27.1 H 08/27/17 08/27/17 08/27/17 16:55 19:24 21:57 WBC RBC MCH RDW Seg Neutrophils # POC ABG pH POC ABG pO2 Sodium Potassium Chloride BUN Creatinine Glucose POC Glucose 114 H 110 H Calcium Magnesium Total Creatine Kinase C-Reactive Protein 4.20 H Total Protein Albumin Lipase Urine WBC (Auto) Vancomycin Trough 08/28/17 08/28/17 08/28/17 11:22 11:43 15:35 WBC RBC MCH RDW Seg Neutrophils # POC ABG pH POC ABG pO2 Sodium 148 H Potassium 3.1 L D Chloride 112.7 H BUN 3 L Creatinine < 0.2 L Glucose 124 H POC Glucose 127 H 125 H Calcium 8.1 L Magnesium Total Creatine Kinase C-Reactive Protein Total Protein Albumin Lipase Urine WBC (Auto) Vancomycin Trough 08/28/17 08/29/17 08/29/17 22:04 05:30 07:54 WBC RBC MCH RDW Seg Neutrophils # POC ABG pH POC ABG pO2 Sodium Potassium Chloride BUN Creatinine Glucose POC Glucose 119 H 150 H Calcium Magnesium Total Creatine Kinase C-Reactive Protein Total Protein Albumin Lipase Urine WBC (Auto) Vancomycin Trough 4.0 L 08/29/17 08/29/17 08/29/17 07:54 07:54 11:39 WBC 12.0 H RBC MCH 26 L RDW 16.3 H Seg Neutrophils # POC ABG pH POC ABG pO2 Sodium Potassium Chloride 107.7 H BUN < 1 L Creatinine < 0.2 L Glucose 120 H POC Glucose 136 H Calcium 8.2 L Magnesium Total Creatine Kinase C-Reactive Protein Total Protein Albumin Lipase Urine WBC (Auto) Vancomycin Trough
[2017-08-29] MEDS: XANAX PO PRN (22:29)
[2017-08-30] MEDS: D5W/NS W/KCL 40MEQ 40 MEQ/1,000 ML BAG IV SCH ×2 (00:41→13:17)
[2017-08-30] MEDS: MORPHINE IV PRN ×4 (00:42→22:58)
[2017-08-30] MEDS ORDERED: CLEOCIN 600 MG/50 mL 600 MG/50 ML BAG IV SCH (02:00)
[2017-08-30] MEDS: DUONEB *Not for PRN Use IH SCH ×4 (02:08→19:24)
[2017-08-30 08:10] LABS: Hematocrit 33.8 % (30.3-42.9); Hemoglobin 11.1 gm/dl (10.1-14.3); Mean Corpuscular HGB Conc 33 % (30-34); Mean Corpuscular Hemoglobin 27 pg (28-32); Mean Corpuscular Volume 81 fl (79-97); Platelet Count 246 K/mm3 (140-440); Red Blood Count 4.17 M/mm3 (3.65-5.03); Red Cell Distribution Width 16.3 % (13.2-15.2)
[2017-08-30 08:11] LABS: BUN/Creatinine Ratio 20; Blood Urea Nitrogen 4 mg/dL (7-17); Calcium 8.9 mg/dL (8.4-10.2); Hemolysis Index 7
--- NOTE | 2017-08-30 11:09 | Progress Note ---
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 Patient returned 2 days later on 08/11/2017 with persistent nausea/vomiting resulting in aspiration pneumonia and was discharged to [facility] in [place], [place] on 08/18/2017, now returns 08/25/2017 with suspect GI bleed. Portable chest x-ray read as there is left lung volume loss/atelectasis with shift of the mediastinum to the left, bibasilar airspace opacity findings may be related to pneumonia cannot exclude left lung lobar atelectasis. CT of the chest without contrast read as heart size is normal, pericardial effusion, bilateral lower lobe temperature is greater on itself, demonstrating significant left upper alone, there is significant atelectasis of the left lower lung due to endobronchial obstruction possibly due to mucous aspiration, endobronchial tumor cannot be entirely excluded, there calcified granulomas in the left lower lung, there is no pleural effusion or pneumothorax, there is an exophytic mass of the upper pole of the right kidney measuring 2 cm, this could be hemorrhagic cysts, tumor cannot be excluded. CT abdomen and pelvis without contrast read as right lung base opacities are concerning for pneumonia, bilateral nonobstructing renal calculi -Sepsis due to bilateral aspiration pneumonia with mucus plug: Treated with IV antibiotics, infectious disease is not available, consult r&d engineer, questionable endobronchial obstruction -R/o GI Bleed with no anemia: Continue to follow H&H -Persistent nausea/vomiting leading to recurrent aspiration pneumonia: Consult GI, possible EGD, patient is eating by mouth, question removal of G-tube, will get speech evaluation/dietitian to see if she is getting enough calories and she has proper swallowing mechanism -Quadriplegia due to his cerebral palsy/Isa Chaidez -Seizure disorder: continue antiepileptics Modified barium done discussed with GI 08/28/17: I sat down and had a long discussion with Mother at bedside, who reports that patient had multiple bronchoscopies for obstruction. She has also undergoing EGD with dilation at [facility] [place] [facility]. I requested old records from [facility] [place] [facility] and [facility] at [facility]. Mother is fixed on removing peg tube , despite patient continued n/v. Mother is fixed on daughter being kicked out of [facility] at [facility] to [facility]. Mother says patient was ambulatory (couple of steps) with walker until March 2017 when whe was admitted to [facility] then transferred to [facility] then discharged to [facility] at [facility]. Bronchoscopy is planned. 08/29/2017: Still with nausea/vomiting, will make NPO, d/w GI, Dr. Bah. Downgrade diet, make npo. Await records from [facility]. Also, low grade temp per GI, Dr. 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 Galeana who will obtain the records from [facility] endoscopy a few months ago. (4) Nausea and vomiting Current Visit: Yes Status: Acute Plan to address problem: Most likely due to partial GOO from migration of the G tube balloon bumper. The G tube was repositioned. Would continue mechanical soft diet and reassess symptoms and intake. Would not remove G tube unless intake is adequate." 08/30/2017: no more nausea and vomiting reported to me. Going for Bronchoscopy, possible d/c back to [facility] in [place], [place], d/w mother, she will sign for old records which is delayed due to Holidays. History Interval history: Patient was seen and examined. Follow-up on current diagnosis. Overnight uneventful. Patient denies any chest pain, shortness breath, or severe headaches. Imaging, nursing note, chart, labs and old chart reviewed. +n/v, she wants the Gtube out Hospitalist Physical - Physical exam Narrative exam: GEN: WDWN, NAD, AWAKE, ALERT, ORIENTATED 3 HEENT: NCAT, EOMI, PERRL, OP Clear NECK: supple, no adenopathy, no thyromegaly, no JVD, old healed trach site CVS/HEART: Regular tachycardia NORMAL S1S2, NO JVD, pulses present bilaterally CHEST/LUNGS: Course breath sounds bilaterally Symmetrical chest expansion, good air entry bilaterally GI/Abdomen: soft, NTND, PEG tube in place good bowel sounds, no guarding or rebound /Bladder: no suprapubic tenderness, no CVA or paraspinal tenderness EXT/Skin: no c/c/e, no obvious rash MSK: Quadriplegic Neuro: CN 2-12 grossly intact, no new focal deficits Psych: calm - Constitutional Vitals: Temp Pulse Resp BP Pulse Ox 97.9 F 109 H 16 123/76 99 08/30/17 07:50 08/30/17 07:50 08/30/17 07:50 08/30/17 07:50 08/30/17 07:50 Results - Labs CBC & Chem 7: 08/30/17 07:33 08/30/17 07:33 Labs: Laboratory Last Values WBC 13.7 K/mm3 (4.5-11.0) H 08/30/17 07:33 RBC 4.17 M/mm3 (3.65-5.03) 08/30/17 07:33 Hgb 11.1 gm/dl (10.1-14.3) 08/30/17 07:33 Hct 33.8 % (30.3-42.9) 08/30/17 07:33 MCV 81 fl (79-97) 08/30/17 07:33 MCH 27 pg (28-32) L 08/30/17 07:33 MCHC 33 % (30-34) 08/30/17 07:33 RDW 16.3 % (13.2-15.2) H 08/30/17 07:33 Plt Count 246 K/mm3 (140-440) 08/30/17 07:33 Lymph % (Auto) TNR 08/26/17 03:55 [place] % (Auto) TNR 08/26/17 03:55 Eos % (Auto) TNR 08/26/17 03:55 Baso % (Auto) TNR 08/26/17 03:55 Lymph # TNR 08/26/17 03:55 [place] # TNR 08/26/17 03:55 Eos # TNR 08/26/17 03:55 Baso # TNR 08/26/17 03:55 Seg Neutrophils % TNR 08/26/17 03:55 Seg Neutrophils # TNR 08/26/17 03:55 PT 14.8 Sec. (12.2-14.9) 08/25/17 19:46 INR 1.10 (0.87-1.13) 08/25/17 19:46 APTT 34.1 Sec. (24.2-36.6) 08/25/17 19:46 POC ABG pH 7.471 (7.35-7.45) H 08/25/17 20:51 POC ABG pCO2 36.2 (35-45) 08/25/17 20:51 POC ABG pO2 71 (80-105) L 08/25/17 20:51 POC ABG HCO3 26.4 08/25/17 20:51 POC ABG Total CO2 27 08/25/17 20:51 POC ABG O2 Sat 95 08/25/17 20:51 POC ABG Base Excess 3 08/25/17 20:51 FiO2 21 % 08/25/17 20:51 Sodium 143 mmol/L (137-145) 08/30/17 07:33 Potassium 3.9 mmol/L (3.6-5.0) 08/30/17 07:33 Chloride 106.5 mmol/L (98-107) 08/30/17 07:33 Carbon Dioxide 24 mmol/L (22-30) 08/30/17 07:33 Anion Gap 16 mmol/L 08/30/17 07:33 BUN 4 mg/dL (7-17) L 08/30/17 07:33 Creatinine < 0.2 mg/dL (0.7-1.2) L 08/30/17 07:33 Estimated GFR > 60 ml/min 08/30/17 07:33 BUN/Creatinine Ratio 20 % 08/30/17 07:33 Glucose 83 mg/dL (65-100) 08/30/17 07:33 POC Glucose 81 (70-105) 08/29/17 21:39 Lactic Acid 0.80 mmol/L (0.7-2.0) 08/25/17 23:45 Calcium 8.9 mg/dL (8.4-10.2) 08/30/17 07:33 Magnesium 1.80 mg/dL (1.7-2.3) 08/29/17 07:54 Total Bilirubin 0.20 mg/dL (0.1-1.2) 08/25/17 19:46 AST 17 units/L (5-40) 08/25/17 19:46 ALT 12 units/L (7-56) 08/25/17 19:46 Alkaline Phosphatase 70 units/L (35-129) 08/25/17 19:46 Total Creatine Kinase 16 units/L (30-135) L 08/25/17 20:54 C-Reactive Protein 4.20 mg/dL (0.00-1.30) H 08/27/17 19:24 Total Protein 6.2 g/dL (6.3-8.2) L 08/25/17 19:46 Albumin 3.2 g/dL (3.9-5) L 08/25/17 19:46 Albumin/Globulin Ratio 1.1 % 08/25/17 19:46 Lipase 68 units/L (13-60) H 08/25/17 19:46 Urine Color Yellow (Yellow) 08/25/17 21:50 Urine Turbidity Clear (Clear) 08/25/17 21:50 Urine pH 5.0 (5.0-7.0) 08/25/17 21:50 Ur Specific [place] 1.025 (1.003-1.030) 08/25/17 21:50 Urine Protein <15 mg/dl mg/dL (Negative) 08/25/17 21:50 Urine Glucose (UA) Neg mg/dL (Negative) 08/25/17 21:50 Urine Ketones 20 mg/dL (Negative) 08/25/17 21:50 Urine Blood Neg (Negative) 08/25/17 21:50 Urine Nitrite Neg (Negative) 08/25/17 21:50 Urine Bilirubin Neg (Negative) 08/25/17 21:50 Urine Urobilinogen < 2.0 mg/dL (<2.0) 08/25/17 21:50 Ur Leukocyte Esterase Sm (Negative) 08/25/17 21:50 Urine WBC (Auto) 34.0 /HPF (0.0-6.0) H 08/25/17 21:50 Urine RBC (Auto) 2.0 /HPF (0.0-6.0) 08/25/17 21:50 U Epithel Cells (Auto) 1.0 /HPF (0-13.0) 08/25/17 21:50 Urine Bacteria (Auto) 1+ /HPF (Negative) 08/25/17 21:50 Urine Mucus 3+ /HPF 08/25/17 21:50 Vancomycin Trough 4.0 ug/mL (5.0-20.0) L 08/29/17 07:54 Blood Type B POSITIVE 08/25/17 19:46 Antibody Screen Positive 08/25/17 19:46 Antibody Identification Anti-E Warm Auto Antibody 08/25/17 19:46 Antibody Identification Anti-E Warm Auto Antibody 08/25/17 19:46
[2017-08-30] MEDS: LEVAQUIN 750MG/150ML 750 MG/150 ML BAG IV SCH (11:47)
[2017-08-30] MEDS: COLACE PO SCH ×2 (12:14→22:57)
[2017-08-30] MEDS: NEURONTIN PO SCH ×3 (12:14→22:56)
[2017-08-30] MEDS: PROTONIX PO SCH (12:15)
[2017-08-30] MEDS: LOVENOX SUB-Q SCH (12:15)
[2017-08-30] MEDS: SENOKOT PO SCH ×2 (12:15→22:57)
[2017-08-30] MEDS: VIMPAT PO SCH ×2 (12:15→22:56)
[2017-08-30] MEDS: FOLVITE PO SCH (12:15)
[2017-08-30] MEDS: FLORANEX PO SCH (12:15)
--- NOTE | 2017-08-30 15:36 | Progress Note ---
Assessment and Plan 1. N/V - appears to be resolved for now. - would see how pt does with diet as per Speech Path - awaiting records - check Ba swallow to assess for stricture - Will discuss G-tube removal with mother and patient together, and if swallowing appropriately, can remove Subjective Date of service: 08/30/17 Principal diagnosis: Dysphagia Interval history: No vomiting. Pt wants G-tube out. Doing better with tube repositioning. Objective - Constitutional Vitals: Vital Signs - 12hr 08/30/17 08/30/17 08/30/17 04:00 07:50 08:43 Temperature 98.5 F 97.9 F Pulse Rate 110 H 109 H Pulse Rate [ 110 H Anterior Bilateral Throughout] Pulse Rate [ Apical] Respiratory 24 16 Rate Respiratory 18 Rate [Anterior Bilateral Throughout] Blood Pressure 123/76 Blood Pressure 114/72 [Right] O2 Sat by Pulse 97 99 Oximetry 08/30/17 08/30/17 08/30/17 08:50 10:00 15:15 Temperature Pulse Rate Pulse Rate [ 100 H 110 H Anterior Bilateral Throughout] Pulse Rate [ 110 H Apical] Respiratory 16 Rate Respiratory 18 20 Rate [Anterior Bilateral Throughout] Blood Pressure Blood Pressure [Right] O2 Sat by Pulse 100 Oximetry 08/30/17 15:23 Temperature Pulse Rate Pulse Rate [ 110 H Anterior Bilateral Throughout] Pulse Rate [ Apical] Respiratory Rate Respiratory 18 Rate [Anterior Bilateral Throughout] Blood Pressure Blood Pressure [Right] O2 Sat by Pulse Oximetry General appearance: Present: no acute distress - EENT Eyes: PERRL, EOM intact - Respiratory Respiratory effort: normal - Gastrointestinal General gastrointestinal: Present: soft, non-tender, other (G-tube site clean, mild mucoid discharge, no purulence) - Labs CBC & Chem 7: 08/30/17 07:33 08/30/17 07:33 Labs: Abnormal lab results 08/30/17 08/30/17 Range/Units 07:33 07:33 WBC 13.7 H (4.5-11.0) K/mm3 MCH 27 L (28-32) pg RDW 16.3 H (13.2-15.2) % BUN 4 L (7-17) mg/dL Creatinine < 0.2 L (0.7-1.2) mg/dL
--- NOTE | 2017-08-30 17:18 | Event Note ---
Date: 08/30/17 Bronchoscopy scheduled tentatively for 11am tomorrow
--- NOTE | 2017-08-30 19:43 | Progress Note ---
Assessment and Plan Patient awake. Resting on BIPAP. 12/6, rate 20, FIO2 30% .Tolerating good. O2 saturation 95%. Patient tentatively scheduled for bronchoscopy tomorrow. - Patient Problems (1) Sepsis Current Visit: Yes Status: Acute Plan to address problem: Patient is on Levofloxacin and clindamycin. (2) Aspiration pneumonia Current Visit: No Status: Acute Plan to address problem: Patient is on levaquine and clindamycin. (3) Pulmonary infiltrate Current Visit: No Status: Acute Plan to address problem: Patient is on Levaquine and clinda mycin. (4) Respiratory failure Current Visit: No Status: Acute Plan to address problem: On BIPAP 12/6, rate 20, FIO2 30%. Albuterol/atrovent aerosol treatments q 6 hours. Continue S/C Lovenox. Continue Protonix. 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 Subjective Date of service: 08/30/17 Principal diagnosis: Dysphagia Interval history: Patient awake. Resting on BIPAP. 12/6, rate 20, FIO2 30% .Tolerating good. O2 saturation 95%. Patient tentatively scheduled for bronchoscopy tomorrow. Objective Vital Signs - 12hr 08/30/17 08/30/17 08/30/17 07:50 08:43 08:50 Temperature 97.9 F Pulse Rate 109 H Pulse Rate [ 110 H 100 H Anterior Bilateral Throughout] Pulse Rate [ Apical] Respiratory 16 Rate Respiratory 18 18 Rate [Anterior Bilateral Throughout] Blood Pressure 123/76 O2 Sat by Pulse 99 Oximetry 08/30/17 08/30/17 08/30/17 10:00 15:15 15:23 Temperature Pulse Rate Pulse Rate [ 110 H 110 H Anterior Bilateral Throughout] Pulse Rate [ 110 H Apical] Respiratory 16 Rate Respiratory 20 18 Rate [Anterior Bilateral Throughout] Blood Pressure O2 Sat by Pulse 100 Oximetry 08/30/17 08/30/17 08/30/17 16:09 19:24 19:25 Temperature 98.2 F Pulse Rate Pulse Rate [ 110 H Anterior Bilateral Throughout] Pulse Rate [ Apical] Respiratory 18 Rate Respiratory 18 Rate [Anterior Bilateral Throughout] Blood Pressure 111/76 O2 Sat by Pulse 100 Oximetry Constitutional: no acute distress, alert Eyes: non-icteric ENT: oropharynx moist Neck: supple, no lymphadenopathy Ascultation: Left: diminished breath sounds (Left base.) Cardiovascular: regular rate and rhythm Gastrointestinal: normoactive bowel sounds, soft, non-tender Integumentary: normal Extremities: no cyanosis, no edema Neurologic: other (Sleeping at this time.) Psychiatric: other (Sleeping at this time) CBC and BMP: 08/30/17 07:33 08/30/17 07:33 ABG, PT/INR, D-dimer: ABG POC ABG pH 7.471 (7.35-7.45) H 08/25/17 20:51 POC ABG pCO2 36.2 (35-45) 08/25/17 20:51 POC ABG pO2 71 (80-105) L 08/25/17 20:51 POC ABG HCO3 26.4 08/25/17 20:51 POC ABG Total CO2 27 08/25/17 20:51 POC ABG O2 Sat 95 08/25/17 20:51 PT/INR, D-dimer PT 14.8 Sec. (12.2-14.9) 08/25/17 19:46 INR 1.10 (0.87-1.13) 08/25/17 19:46 Abnormal lab findings: Abnormal Labs 08/25/17 08/25/17 08/25/17 19:46 19:46 20:51 WBC 13.9 H RBC 5.06 H MCH 26 L RDW 16.6 H Seg Neutrophils # 9.0 H POC ABG pH 7.471 H POC ABG pO2 71 L Sodium Potassium Chloride BUN Creatinine < 0.2 L Glucose POC Glucose Calcium Magnesium Total Creatine Kinase C-Reactive Protein Total Protein 6.2 L Albumin 3.2 L Lipase 68 H Urine WBC (Auto) Vancomycin Trough 08/25/17 08/25/17 08/26/17 20:54 21:50 22:28 WBC RBC MCH RDW Seg Neutrophils # POC ABG pH POC ABG pO2 Sodium Potassium Chloride BUN Creatinine Glucose POC Glucose 116 H Calcium Magnesium Total Creatine Kinase 16 L C-Reactive Protein Total Protein Albumin Lipase Urine WBC (Auto) 34.0 H Vancomycin Trough 08/27/17 08/27/17 08/27/17 05:04 05:04 08:46 WBC RBC MCH 27 L RDW 16.0 H Seg Neutrophils # POC ABG pH POC ABG pO2 Sodium Potassium 2.4 L* D Chloride BUN 3 L Creatinine < 0.2 L Glucose 105 H POC Glucose Calcium 8.3 L Magnesium 1.40 L Total Creatine Kinase C-Reactive Protein Total Protein Albumin Lipase Urine WBC (Auto) Vancomycin Trough 27.1 H 08/27/17 08/27/17 08/27/17 16:55 19:24 21:57 WBC RBC MCH RDW Seg Neutrophils # POC ABG pH POC ABG pO2 Sodium Potassium Chloride BUN Creatinine Glucose POC Glucose 114 H 110 H Calcium Magnesium Total Creatine Kinase C-Reactive Protein 4.20 H Total Protein Albumin Lipase Urine WBC (Auto) Vancomycin Trough 08/28/17 08/28/17 08/28/17 11:22 11:43 15:35 WBC RBC MCH RDW Seg Neutrophils # POC ABG pH POC ABG pO2 Sodium 148 H Potassium 3.1 L D Chloride 112.7 H BUN 3 L Creatinine < 0.2 L Glucose 124 H POC Glucose 127 H 125 H Calcium 8.1 L Magnesium Total Creatine Kinase C-Reactive Protein Total Protein Albumin Lipase Urine WBC (Auto) Vancomycin Trough 08/28/17 08/29/17 08/29/17 22:04 05:30 07:54 WBC RBC MCH RDW Seg Neutrophils # POC ABG pH POC ABG pO2 Sodium Potassium Chloride BUN Creatinine Glucose POC Glucose 119 H 150 H Calcium Magnesium Total Creatine Kinase C-Reactive Protein Total Protein Albumin Lipase Urine WBC (Auto) Vancomycin Trough 4.0 L 08/29/17 08/29/17 08/29/17 07:54 07:54 11:39 WBC 12.0 H RBC MCH 26 L RDW 16.3 H Seg Neutrophils # POC ABG pH POC ABG pO2 Sodium Potassium Chloride 107.7 H BUN < 1 L Creatinine < 0.2 L Glucose 120 H POC Glucose 136 H Calcium 8.2 L Magnesium Total Creatine Kinase C-Reactive Protein Total Protein Albumin Lipase Urine WBC (Auto) Vancomycin Trough 08/30/17 08/30/17 07:33 07:33 WBC 13.7 H RBC MCH 27 L RDW 16.3 H Seg Neutrophils # POC ABG pH POC ABG pO2 Sodium Potassium Chloride BUN 4 L Creatinine < 0.2 L Glucose POC Glucose Calcium Magnesium Total Creatine Kinase C-Reactive Protein Total Protein Albumin Lipase Urine WBC (Auto) Vancomycin Trough
[2017-08-30] MEDS: XANAX PO PRN (22:58)
[2017-08-31] MEDS: DUONEB *Not for PRN Use IH SCH ×4 (01:45→21:00)
[2017-08-31 06:27] LABS: Hematocrit 33.1 % (30.3-42.9); Hemoglobin 10.9 gm/dl (10.1-14.3); Mean Corpuscular HGB Conc 33 % (30-34); Mean Corpuscular Hemoglobin 27 pg (28-32); Mean Corpuscular Volume 82 fl (79-97); Platelet Count 264 K/mm3 (140-440); Red Blood Count 4.06 M/mm3 (3.65-5.03); Red Cell Distribution Width 16.2 % (13.2-15.2)
[2017-08-31 06:51] LABS: BUN/Creatinine Ratio 15; Blood Urea Nitrogen 3 mg/dL (7-17); Calcium 8.6 mg/dL (8.4-10.2); Hemolysis Index 9
[2017-08-31] MEDS: MORPHINE IV PRN ×2 (08:34→17:12)
--- NOTE | 2017-08-31 09:52 | Gastroenterology Progress Note ---
Assessment and Plan 1.Dysphagia? 2.N/V -N/V- resolving with no episodes overnight or this am -pt states she tolerated puree diet yesterday w/o dysphagia -pt is requesting G-tube be removed -Ba swallow pending for today- will consider removal of G-tube based on results -will follow Subjective Date of service: 08/31/17 Principal diagnosis: Dysphagia Interval history: Patient resting in bed. No acute distress. Reports tolerating diet yesterday w/ o dysphagia or N/V. Objective - Constitutional Vitals: Temp Pulse Resp BP Pulse Ox 98.7 F 116 H 20 111/79 94 08/31/17 07:33 08/31/17 07:33 08/31/17 08:34 08/31/17 07:33 08/31/17 07:33 General appearance: no acute distress - EENT Eyes: PERRL, EOM intact ENT: hearing intact - Respiratory Respiratory: bilateral: diminished - Cardiovascular Rhythm: regular Heart Sounds: Present: S1 & S2 - Gastrointestinal General gastrointestinal: Present: soft, non-tender, non-distended, normal bowel sounds, other (+G-tube) - Labs CBC & Chem 7: 08/31/17 04:38 08/31/17 04:38 Labs: Laboratory Results - last 24 hr 08/31/17 08/31/17 04:38 04:38 WBC 10.5 RBC 4.06 Hgb 10.9 Hct 33.1 MCV 82 MCH 27 L MCHC 33 RDW 16.2 H Plt Count 264 Sodium 140 Potassium 3.8 Chloride 100.7 Carbon Dioxide 25 Anion Gap 18 BUN 3 L Creatinine < 0.2 L Estimated GFR > 60 BUN/Creatinine Ratio 15 Glucose 77 Calcium 8.6
[2017-08-31] MEDS ORDERED: NACL 0.9% 1000 ML 1,000 ML ONE ×2 (10:56→12:58)
[2017-08-31] MEDS: LEVAQUIN 750MG/150ML 750 MG/150 ML BAG IV SCH (10:59)
[2017-08-31] MEDS ORDERED: XYLOCAINE 1% 20 mL ONE (11:01)
[2017-08-31] MEDS ORDERED: LIDOCAINE VISCOUS 2% ONE (11:02)
[2017-08-31] MEDS ORDERED: ADRENALIN ONE (11:02)
[2017-08-31] MEDS ORDERED: HURRICAINE ONE 20% TOPICAL SPRAY MM (11:02)
[2017-08-31] MEDS: LOVENOX SUB-Q SCH (11:02)
--- NOTE | 2017-08-31 11:39 | Progress Note ---
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 Patient returned 2 days later on 08/11/2017 with persistent nausea/vomiting resulting in aspiration pneumonia and was discharged to [facility] in [place], [place] on 08/18/2017, now returns 08/25/2017 with suspect GI bleed. Portable chest x-ray read as there is left lung volume loss/atelectasis with shift of the mediastinum to the left, bibasilar airspace opacity findings may be related to pneumonia cannot exclude left lung lobar atelectasis. CT of the chest without contrast read as heart size is normal, pericardial effusion, bilateral lower lobe temperature is greater on itself, demonstrating significant left upper alone, there is significant atelectasis of the left lower lung due to endobronchial obstruction possibly due to mucous aspiration, endobronchial tumor cannot be entirely excluded, there calcified granulomas in the left lower lung, there is no pleural effusion or pneumothorax, there is an exophytic mass of the upper pole of the right kidney measuring 2 cm, this could be hemorrhagic cysts, tumor cannot be excluded. CT abdomen and pelvis without contrast read as right lung base opacities are concerning for pneumonia, bilateral nonobstructing renal calculi -Sepsis due to bilateral aspiration pneumonia with mucus plug: Treated with IV antibiotics, infectious disease is not available, consult engineering manager, questionable endobronchial obstruction -R/o GI Bleed with no anemia: Continue to follow H&H -Persistent nausea/vomiting leading to recurrent aspiration pneumonia: Consult GI, possible EGD, patient is eating by mouth, question removal of G-tube, will get speech evaluation/dietitian to see if she is getting enough calories and she has proper swallowing mechanism -Quadriplegia due to his cerebral palsy/Isa Chaidez -Seizure disorder: continue antiepileptics Modified barium done discussed with GI 08/28/17: I sat down and had a long discussion with Mother at bedside, who reports that patient had multiple bronchoscopies for obstruction. She has also undergoing EGD with dilation at [facility]. I requested old records from [facility] and [facility]. Mother is fixed on removing peg tube , despite patient continued n/v. Mother is fixed on daughter being kicked out of [facility] at [facility] to [facility]. Mother says patient was ambulatory (couple of steps) with walker until March 2017 when whe was admitted to [facility] then transferred to [facility] then discharged to [facility]. Bronchoscopy is planned. 08/29/2017: Still with nausea/vomiting, will make NPO, d/w GI, Dr. Bah. Downgrade diet, make npo. Await records from [facility]. Also, low grade temp per GI, Dr. 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 Galeana who will obtain the records from [facility] endoscopy a few months ago. (4) Nausea and vomiting Current Visit: Yes Status: Acute Plan to address problem: Most likely due to partial GOO from migration of the G tube balloon bumper. The G tube was repositioned. Would continue mechanical soft diet and reassess symptoms and intake. Would not remove G tube unless intake is adequate." 08/30/2017: no more nausea and vomiting reported to me. Going for Bronchoscopy, possible d/c back to [facility] in [place], [place], d/w mother, she will sign for old records which is delayed due to Holidays. 08/31/17: Bronchoscopy delayed until today. D/w GI, Dr. Hayes yesterday, going for Barium test today and possible remove PEG tube per patient and mother wishes. Old records from [facility] and [facility] pending. History Interval history: Patient was seen and examined. Follow-up on current diagnosis. Overnight uneventful. Patient denies any chest pain, shortness breath, or severe headaches. Imaging, nursing note, chart, labs and old chart reviewed. +n/v, she wants the Gtube out Hospitalist Physical - Physical exam Narrative exam: GEN: WDWN, NAD, AWAKE, ALERT, ORIENTATED 3 HEENT: NCAT, EOMI, PERRL, OP Clear NECK: supple, no adenopathy, no thyromegaly, no JVD, old healed trach site CVS/HEART: Regular tachycardia NORMAL S1S2, NO JVD, pulses present bilaterally CHEST/LUNGS: Course breath sounds bilaterally Symmetrical chest expansion, good air entry bilaterally GI/Abdomen: soft, NTND, PEG tube in place good bowel sounds, no guarding or rebound /Bladder: no suprapubic tenderness, no CVA or paraspinal tenderness EXT/Skin: no c/c/e, no obvious rash MSK: Quadriplegic Neuro: CN 2-12 grossly intact, no new focal deficits Psych: calm - Constitutional Vitals: Temp Pulse Resp BP Pulse Ox 98.4 F 106 H 18 138/88 97 08/31/17 11:34 08/31/17 11:34 08/31/17 11:34 08/31/17 11:34 08/31/17 11:34 General appearance: Present: no acute distress Results - Labs CBC & Chem 7: 08/31/17 04:38 08/31/17 04:38 Labs: Laboratory Last Values WBC 10.5 K/mm3 (4.5-11.0) 08/31/17 04:38 RBC 4.06 M/mm3 (3.65-5.03) 08/31/17 04:38 Hgb 10.9 gm/dl (10.1-14.3) 08/31/17 04:38 Hct 33.1 % (30.3-42.9) 08/31/17 04:38 MCV 82 fl (79-97) 08/31/17 04:38 MCH 27 pg (28-32) L 08/31/17 04:38 MCHC 33 % (30-34) 08/31/17 04:38 RDW 16.2 % (13.2-15.2) H 08/31/17 04:38 Plt Count 264 K/mm3 (140-440) 08/31/17 04:38 Lymph % (Auto) TNR 08/26/17 03:55 Howell % (Auto) TNR 08/26/17 03:55 Eos % (Auto) TNR 08/26/17 03:55 Baso % (Auto) TNR 08/26/17 03:55 Lymph # TNR 08/26/17 03:55 Howell # TNR 08/26/17 03:55 Eos # TNR 08/26/17 03:55 Baso # TNR 08/26/17 03:55 Seg Neutrophils % TNR 08/26/17 03:55 Seg Neutrophils # TNR 08/26/17 03:55 PT 14.8 Sec. (12.2-14.9) 08/25/17 19:46 INR 1.10 (0.87-1.13) 08/25/17 19:46 APTT 34.1 Sec. (24.2-36.6) 08/25/17 19:46 POC ABG pH 7.471 (7.35-7.45) H 08/25/17 20:51 POC ABG pCO2 36.2 (35-45) 08/25/17 20:51 POC ABG pO2 71 (80-105) L 08/25/17 20:51 POC ABG HCO3 26.4 08/25/17 20:51 POC ABG Total CO2 27 08/25/17 20:51 POC ABG O2 Sat 95 08/25/17 20:51 POC ABG Base Excess 3 08/25/17 20:51 FiO2 21 % 08/25/17 20:51 Sodium 140 mmol/L (137-145) 08/31/17 04:38 Potassium 3.8 mmol/L (3.6-5.0) 08/31/17 04:38 Chloride 100.7 mmol/L (98-107) 08/31/17 04:38 Carbon Dioxide 25 mmol/L (22-30) 08/31/17 04:38 Anion Gap 18 mmol/L 08/31/17 04:38 BUN 3 mg/dL (7-17) L 08/31/17 04:38 Creatinine < 0.2 mg/dL (0.7-1.2) L 08/31/17 04:38 Estimated GFR > 60 ml/min 08/31/17 04:38 BUN/Creatinine Ratio 15 % 08/31/17 04:38 Glucose 77 mg/dL (65-100) 08/31/17 04:38 POC Glucose 81 (70-105) 08/29/17 21:39 Lactic Acid 0.80 mmol/L (0.7-2.0) 08/25/17 23:45 Calcium 8.6 mg/dL (8.4-10.2) 08/31/17 04:38 Magnesium 1.80 mg/dL (1.7-2.3) 08/29/17 07:54 Total Bilirubin 0.20 mg/dL (0.1-1.2) 08/25/17 19:46 AST 17 units/L (5-40) 08/25/17 19:46 ALT 12 units/L (7-56) 08/25/17 19:46 Alkaline Phosphatase 70 units/L (35-129) 08/25/17 19:46 Total Creatine Kinase 16 units/L (30-135) L 08/25/17 20:54 C-Reactive Protein 4.20 mg/dL (0.00-1.30) H 08/27/17 19:24 Total Protein 6.2 g/dL (6.3-8.2) L 08/25/17 19:46 Albumin 3.2 g/dL (3.9-5) L 08/25/17 19:46 Albumin/Globulin Ratio 1.1 % 08/25/17 19:46 Lipase 68 units/L (13-60) H 08/25/17 19:46 Urine Color Yellow (Yellow) 08/25/17 21:50 Urine Turbidity Clear (Clear) 08/25/17 21:50 Urine pH 5.0 (5.0-7.0) 08/25/17 21:50 Ur Specific [place] 1.025 (1.003-1.030) 08/25/17 21:50 Urine Protein <15 mg/dl mg/dL (Negative) 08/25/17 21:50 Urine Glucose (UA) Neg mg/dL (Negative) 08/25/17 21:50 Urine Ketones 20 mg/dL (Negative) 08/25/17 21:50 Urine Blood Neg (Negative) 08/25/17 21:50 Urine Nitrite Neg (Negative) 08/25/17 21:50 Urine Bilirubin Neg (Negative) 08/25/17 21:50 Urine Urobilinogen < 2.0 mg/dL (<2.0) 08/25/17 21:50 Ur Leukocyte Esterase Sm (Negative) 08/25/17 21:50 Urine WBC (Auto) 34.0 /HPF (0.0-6.0) H 08/25/17 21:50 Urine RBC (Auto) 2.0 /HPF (0.0-6.0) 08/25/17 21:50 U Epithel Cells (Auto) 1.0 /HPF (0-13.0) 08/25/17 21:50 Urine Bacteria (Auto) 1+ /HPF (Negative) 08/25/17 21:50 Urine Mucus 3+ /HPF 08/25/17 21:50 Vancomycin Trough 4.0 ug/mL (5.0-20.0) L 08/29/17 07:54 Blood Type B POSITIVE 08/25/17 19:46 Antibody Screen Positive 08/25/17 19:46 Antibody Identification Anti-E Warm Auto Antibody 08/25/17 19:46 Antibody Identification Anti-E Warm Auto Antibody 08/25/17 19:46
[2017-08-31] MEDS ORDERED: NACL 0.9% 1000 ML 1,000 ML IV SCH (12:00)
[2017-08-31] MEDS: VIMPAT PO SCH ×2 (12:21→23:34)
[2017-08-31] MEDS ORDERED: WATER FOR IRRIG STERILE IR ONE (12:58)
--- NOTE | 2017-08-31 13:27 | Anesthesia Consultation ---
Anesthesia Consult and Med Hx Date of service: 08/31/17 - Airway Anesthetic Teeth Evaluation: Poor ROM Head & Neck: Adequate Mental/Hyoid Distance: Adequate Mallampati Class: Class IV Intubation Access Assessment: Possibly Difficult - Pulmonary Exam CTA: Yes (Distant breath sounds) - Cardiac Exam Cardiac Exam: RRR - Pre-Operative Health Status ASA Pre-Surgery Classification: ASA3 Proposed Anesthetic Plan: General - Pulmonary Hx Asthma: Yes COPD: No Hx Pneumonia: Yes Hx Sleep Apnea: Yes - Cardiovascular System Hx Hypertension: Yes - Central Nervous System Hx Seizures: Yes (Remote) Hx Psychiatric Problems: Yes - Endocrine Hx End Stage Renal Disease: No - Additional Comments Anesthesia Medical History Comments: Guillan-Rodanthe, CP, CRF
--- NOTE | 2017-08-31 13:28 | Anesthesia Day of Surgery ---
Anesthesia Day of Surgery - Day of Surgery Patient Examined: Yes Patient H&P Reviewed: Yes Patient is NPO: Yes
[2017-08-31] MEDS ORDERED: VERSED ONE (13:30)
--- NOTE | 2017-08-31 13:30 | Progress Note ---
Subjective Date of service: 08/31/17 Principal diagnosis: Dysphagia Interval history: Patient is seen today for: Seen and examined at bedside; 24hour events reviewed; nursing and respiratory care staff consulted; no adverse overnight events reported to me; Objective Vital Signs - 12hr 08/31/17 08/31/17 08/31/17 04:00 04:38 07:23 Temperature 98.8 F Pulse Rate 115 H 115 H Pulse Rate [ 115 H Anterior Bilateral Throughout] Pulse Rate [ Apical] Respiratory 20 26 H Rate Respiratory 20 Rate [Anterior Bilateral Throughout] Blood Pressure 107/77 Blood Pressure [Right] O2 Sat by Pulse 96 Oximetry 08/31/17 08/31/17 08/31/17 07:33 08:34 09:04 Temperature 98.7 F Pulse Rate 116 H Pulse Rate [ 118 H Anterior Bilateral Throughout] Pulse Rate [ Apical] Respiratory 18 20 20 Rate Respiratory 20 Rate [Anterior Bilateral Throughout] Blood Pressure 111/79 Blood Pressure [Right] O2 Sat by Pulse 94 Oximetry 08/31/17 08/31/17 08/31/17 11:12 11:34 12:30 Temperature 98.4 F Pulse Rate 106 H Pulse Rate [ Anterior Bilateral Throughout] Pulse Rate [ 105 H Apical] Respiratory 18 22 Rate Respiratory Rate [Anterior Bilateral Throughout] Blood Pressure Blood Pressure 138/88 [Right] O2 Sat by Pulse 96 97 Oximetry Constitutional: no acute distress, alert Eyes: non-icteric ENT: oropharynx moist Neck: supple, no lymphadenopathy Ascultation: Left: diminished breath sounds (Left base.) Cardiovascular: regular rate and rhythm Gastrointestinal: normoactive bowel sounds, soft, non-tender Integumentary: normal Extremities: no cyanosis, no edema Neurologic: other (Sleeping at this time.) Psychiatric: other (Sleeping at this time) CBC and BMP: 08/31/17 04:38 08/31/17 04:38 ABG, PT/INR, D-dimer: ABG POC ABG pH 7.471 (7.35-7.45) H 08/25/17 20:51 POC ABG pCO2 36.2 (35-45) 08/25/17 20:51 POC ABG pO2 71 (80-105) L 08/25/17 20:51 POC ABG HCO3 26.4 08/25/17 20:51 POC ABG Total CO2 27 08/25/17 20:51 POC ABG O2 Sat 95 08/25/17 20:51 PT/INR, D-dimer PT 14.8 Sec. (12.2-14.9) 08/25/17 19:46 INR 1.10 (0.87-1.13) 08/25/17 19:46 Abnormal lab findings: Abnormal Labs 08/25/17 08/25/17 08/25/17 19:46 19:46 20:51 WBC 13.9 H RBC 5.06 H MCH 26 L RDW 16.6 H Seg Neutrophils # 9.0 H POC ABG pH 7.471 H POC ABG pO2 71 L Sodium Potassium Chloride BUN Creatinine < 0.2 L Glucose POC Glucose Calcium Magnesium Total Creatine Kinase C-Reactive Protein Total Protein 6.2 L Albumin 3.2 L Lipase 68 H Urine WBC (Auto) Vancomycin Trough 08/25/17 08/25/17 08/26/17 20:54 21:50 22:28 WBC RBC MCH RDW Seg Neutrophils # POC ABG pH POC ABG pO2 Sodium Potassium Chloride BUN Creatinine Glucose POC Glucose 116 H Calcium Magnesium Total Creatine Kinase 16 L C-Reactive Protein Total Protein Albumin Lipase Urine WBC (Auto) 34.0 H Vancomycin Trough 08/27/17 08/27/17 08/27/17 05:04 05:04 08:46 WBC RBC MCH 27 L RDW 16.0 H Seg Neutrophils # POC ABG pH POC ABG pO2 Sodium Potassium 2.4 L* D Chloride BUN 3 L Creatinine < 0.2 L Glucose 105 H POC Glucose Calcium 8.3 L Magnesium 1.40 L Total Creatine Kinase C-Reactive Protein Total Protein Albumin Lipase Urine WBC (Auto) Vancomycin Trough 27.1 H 08/27/17 08/27/17 08/27/17 16:55 19:24 21:57 WBC RBC MCH RDW Seg Neutrophils # POC ABG pH POC ABG pO2 Sodium Potassium Chloride BUN Creatinine Glucose POC Glucose 114 H 110 H Calcium Magnesium Total Creatine Kinase C-Reactive Protein 4.20 H Total Protein Albumin Lipase Urine WBC (Auto) Vancomycin Trough 08/28/17 08/28/17 08/28/17 11:22 11:43 15:35 WBC RBC MCH RDW Seg Neutrophils # POC ABG pH POC ABG pO2 Sodium 148 H Potassium 3.1 L D Chloride 112.7 H BUN 3 L Creatinine < 0.2 L Glucose 124 H POC Glucose 127 H 125 H Calcium 8.1 L Magnesium Total Creatine Kinase C-Reactive Protein Total Protein Albumin Lipase Urine WBC (Auto) Vancomycin Trough 08/28/17 08/29/17 08/29/17 22:04 05:30 07:54 WBC RBC MCH RDW Seg Neutrophils # POC ABG pH POC ABG pO2 Sodium Potassium Chloride BUN Creatinine Glucose POC Glucose 119 H 150 H Calcium Magnesium Total Creatine Kinase C-Reactive Protein Total Protein Albumin Lipase Urine WBC (Auto) Vancomycin Trough 4.0 L 08/29/17 08/29/17 08/29/17 07:54 07:54 11:39 WBC 12.0 H RBC MCH 26 L RDW 16.3 H Seg Neutrophils # POC ABG pH POC ABG pO2 Sodium Potassium Chloride 107.7 H BUN < 1 L Creatinine < 0.2 L Glucose 120 H POC Glucose 136 H Calcium 8.2 L Magnesium Total Creatine Kinase C-Reactive Protein Total Protein Albumin Lipase Urine WBC (Auto) Vancomycin Trough 08/30/17 08/30/17 08/31/17 07:33 07:33 04:38 WBC 13.7 H RBC MCH 27 L 27 L RDW 16.3 H 16.2 H Seg Neutrophils # POC ABG pH POC ABG pO2 Sodium Potassium Chloride BUN 4 L Creatinine < 0.2 L Glucose POC Glucose Calcium Magnesium Total Creatine Kinase C-Reactive Protein Total Protein Albumin Lipase Urine WBC (Auto) Vancomycin Trough 08/31/17 04:38 WBC RBC MCH RDW Seg Neutrophils # POC ABG pH POC ABG pO2 Sodium Potassium Chloride BUN 3 L Creatinine < 0.2 L Glucose POC Glucose Calcium Magnesium Total Creatine Kinase C-Reactive Protein Total Protein Albumin Lipase Urine WBC (Auto) Vancomycin Trough
[2017-08-31] MEDS ORDERED: DIPRIVAN 10 MG/ML IV ONE (13:31)
--- NOTE | 2017-08-31 14:18 | Procedure Note ---
Date of procedure: 08/31/17 Pre-op diagnosis: Left Lower Lobe Atelectasis; Aspiration Pneumonia Post-op diagnosis: same Procedure: FOB with BAL (Full note dictated # [id number]) Please see dictated notes for full details
--- NOTE | 2017-08-31 14:58 | Post Anesthesia Evaluation ---
- Post Anesthesia Evaluation Patient Participated: Yes Airway Patent: Yes Stable Respiratory Function: Yes Temp > 96.8F: Yes Pain Manageable: Yes Adequeate Hydration: Yes Anesthesia Complications: No
--- NOTE | 2017-08-31 15:39 | XRay Report ---
AP chest x-ray. History: Post bronchoscopy. Findings: There is left lower lobe atelectasis with shift of the mediastinum from right to left. The right lung is clear. The left upper lobe is unremarkable. The heart and ulnar vessels are normal. Impression: Left lower lobe atelectasis.
[2017-08-31] MEDS: FOLVITE PO SCH (19:08)
[2017-08-31] MEDS: COLACE PO SCH ×2 (19:08→21:44)
[2017-08-31] MEDS: FLORANEX PO SCH (19:08)
[2017-08-31] MEDS: PROTONIX PO SCH (19:08)
[2017-08-31] MEDS: NEURONTIN PO SCH ×2 (19:08→23:34)
[2017-08-31] MEDS: SENOKOT PO SCH ×2 (19:09→21:47)
--- NOTE | 2017-08-31 20:20 | Operative Report ---
PROCEDURE: Fiberoptic bronchoscopy with airway lavage and BAL. INDICATIONS: Left lower lobe atelectasis and presumed left lower lobe pneumonia. CONSENT: Informed and witnessed obtained from the patient's mother. COMPLICATIONS: No immediate procedural complications. Sedation was provided by the anesthesiologist. DESCRIPTION OF PROCEDURE: After informed and witnessed consent as well as premedication, fiberoptic bronchoscope was first attempted to be introduced through both right and left nostrils. However, I was unable to get it down the nostrils, so I came out. A bite block was placed and the oral route was chosen. A lot of secretions in the oropharynx, finally located vocal cords. Topical lidocaine about 3 mL was applied at the vocal cords and then the superior trachea was entered. There was some architectural distortion with traction of the trachea towards the left side. From just above the level of the kyle, I could see mucoid whitish secretions occluding the left main stem bronchus. The right bronchial tree was quickly evaluated. Right upper lobe, right middle lobe, right lower lobe basilar segments were all free of endobronchial tumor or significant secretions. Fiberoptic bronchoscope was withdrawn to the kyle. I should mention topical lidocaine had also earlier been applied at the kyle. The airway secretion in the left main stem bronchus was suctioned. The left upper lobe and lingular divisions actually were free of significant secretions. Again, the airways were pretty distorted in this area, little bit difficult to get into the left upper lobe. Ultimately, the fiberoptic bronchoscope was withdrawn and I directed it towards the left lower lobe. From just the first, upon entering the left lower lobe, it was clear that the airways in this section were narrowed. The patency of the airways of the subsegments were narrower than usually encountered and may explain some of the reasons for the persistent left lower lobe atelectasis. I was able to with sequential suctioning get some mucoid secretions out of the basilar segments; however, I could not advance the fiberoptic bronchoscope to any significant distance distally. There was no obvious endobronchial lesion. There was an area in the left lower lobe of significant inflammation of the airways. Fiberoptic bronchoscope was wedged in this segment and sequential aliquots of bronchoalveolar lavage samples were taken from here. I then again tried to suction out as much secretions as we could. Finally, I withdrew the fiberoptic bronchoscope after survey revealed no significant bleeding. Fiberoptic bronchoscope was then withdrawn again through bilaterally mobile vocal cords. The patient tolerated the procedure well. No immediate procedural complications. RECOMMENDATIONS: 1. Stat chest x-ray has been ordered to see if there has been any immediate improvement in the left lower lobe atelectasis. 2. Samples will be sent for cytology and for cultures. I will proceed to discuss the procedure with her mother now. JOB# [id number] TATIANA/NINA
[2017-09-01] MEDS: D5W/NS W/KCL 40MEQ 40 MEQ/1,000 ML BAG IV SCH ×2 (01:32→22:17)
[2017-09-01] MEDS: DUONEB *Not for PRN Use IH SCH ×4 (02:13→21:01)
[2017-09-01] MEDS: PERCOCET 5/325 PO PRN ×3 (05:23→19:50)
[2017-09-01] MEDS: NEURONTIN PO SCH ×4 (08:40→22:58)
--- NOTE | 2017-09-01 09:28 | Fluoroscopy Report ---
Barium swallow: Quadriplegic with dysphasia. Exam was performed in the tilted upright position. The patient is able to swallow liquid barium without difficulty. She had no difficulty swallowing the contrast. All portions of the esophagus distended well however tertiary waves were identified throughout the exam. There is a relatively good transit of barium however into the stomach. There is rapid emptying from stomach into the small bowel. Water was swallowed at the end of the procedure with no obvious reflux. Impression: Abnormal peristaltic pattern but otherwise unremarkable exam.
--- NOTE | 2017-09-01 10:23 | Gastroenterology Progress Note ---
Assessment and Plan 1.Dysphagia? 2.N/V -N/V- resolved -clinically pt w/o GI complaints or reports of dysphagia -Ba swallow negative for stricture -G-tube balloon deflated and G-tube removed w/o difficultly per pt request. Pt tolerated well. Site w/o signs of infection. Gauze dressing applied. -diet per Speech Path recommendations -will sign off, please re-consult if needed Subjective Date of service: 09/01/17 Principal diagnosis: Dysphagia Interval history: Patient resting in bed. No acute distress or events overnight. No GI complaints. Objective - Constitutional Vitals: Temp Pulse Resp BP Pulse Ox 98.8 F 98 H 20 94/63 97 09/01/17 07:23 09/01/17 07:23 09/01/17 07:23 09/01/17 07:23 09/01/17 07:23 General appearance: no acute distress - Respiratory Respiratory: bilateral: diminished - Cardiovascular Rhythm: regular Heart Sounds: Present: S1 & S2 - Gastrointestinal General gastrointestinal: Present: soft, non-tender, non-distended, normal bowel sounds - Labs CBC & Chem 7: 08/31/17 04:38 08/31/17 04:38 Labs: Laboratory Results - last 24 hr 08/31/17 08/31/17 11:41 15:58 POC Glucose 78 76
--- NOTE | 2017-09-01 10:54 | Discharge Summary ---
Providers - Providers Date of Admission: 08/25/17 22:23 Date of discharge: 09/02/17 Attending physician: THIEN MEADOWS 08/30/17 11:40 Consult to Wound/ET Nurse [CONS] Routine Reason For Exam: wound eval for nose area 08/30/17 15:34 Consult to Wound/ET Nurse [CONS] Urgent Reason For Exam: wound eval 08/25/17 22:30 Consult to Physician [CONS] Routine Consulting Provider: SCOTTIE KRISHNAN Reason For Exam: HCAP / Hemop[tysis Place consult to:: Dr. Krishnan Notified:: Answering Service Phone number called:: [phone] Was contact made?: Yes If yes, spoke with:: Dr. Krishnan Time called:: 00:03 08/26/17 09:54 Consult to Physician [CONS] Routine Consulting Provider: GINNY COPELAND Reason For Exam: persistent n/v, needs EGD, ?removal PEG Place consult to:: dr. copeland Notified:: answering service Phone number called:: Was contact made?: Yes If yes, spoke with:: lalo Time called:: 09:51 08/26/17 09:55 Consult to Dietitian/Nutrition [CONS] Routine Physician Instructions: calorie count Reason For Exam: Reason for Consult: Write/Manage Tube Feeding Consult to Physician [CONS] Routine Consulting Provider: SUE GRIFFITHS Reason For Exam: ?endobronchial obstruction Place consult to:: dr. griffiths Notified:: answering service Phone number called:: Was contact made?: No Time called:: 09:57 Comment:: left message Speech Therapy Evaluation and Treat [CONS] Routine Reason For Exam: can she swallow? modify diet? 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 Patient returned 2 days later on 08/11/2017 with persistent nausea/ vomiting resulting in aspiration pneumonia and was discharged to [facility] in [place], [place] on 08/18/2017, now returns 08/25/2017 with suspect GI bleed/?coffee ground emesis, which was not present but she still had n/v. Portable chest x-ray read as there is left lung volume loss/atelectasis with shift of the mediastinum to the left, bibasilar airspace opacity findings may be related to pneumonia cannot exclude left lung lobar atelectasis. CT of the chest without contrast read as heart size is normal, pericardial effusion, bilateral lower lobe temperature is greater on itself, demonstrating significant left upper alone, there is significant atelectasis of the left lower lung due to endobronchial obstruction possibly due to mucous aspiration, endobronchial tumor cannot be entirely excluded, there calcified granulomas in the left lower lung, there is no pleural effusion or pneumothorax, there is an exophytic mass of the upper pole of the right kidney measuring 2 cm, this could be hemorrhagic cysts, tumor cannot be excluded. CT abdomen and pelvis without contrast read as right lung base opacities are concerning for pneumonia, bilateral nonobstructing renal calculi Discharge Diagnoses: -Sepsis due to bilateral aspiration pneumonia with mucus plug/atelectasis: Treated with IV antibiotics, infectious disease is not available, consult hop farmer, questionable endobronchial obstruction -R/o GI Bleed with no anemia: Continue to follow H&H -Persistent Intractable nausea/vomiting leading to recurrent aspiration pneumonia most likely due to Gtube part/bumper migration: Consult GI, possible EGD, patient is eating by mouth, question removal of G-tube, will get speech evaluation/dietitian to see if she is getting enough calories and she has proper swallowing mechanism -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 She has also undergoing EGD with dilation at [facility]. I requested old records from [facility] and LTach at [facility]. Mother is fixed on removing peg tube , despite patient continued n/v. Mother is fixed on daughter being kicked out of Ltach at [facility] to [facility]. Mother says patient was ambulatory (couple of steps) with walker until March 2017 when whe was admitted to [facility] then transferred to [facility] then discharged to LTACH at [facility]. Bronchoscopy is planned. 08/29/2017: Still with nausea/vomiting, will make NPO, d/w GIDr. Bah. Downgrade diet, make npo. Await records from [facility]. Also, low grade temp per GI, Dr. 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 Meadows who will obtain the records from [facility] endoscopy a few months ago. (4) Nausea and vomiting Current Visit: Yes Status: Acute Plan to address problem: Most likely due to partial GOO from migration of the G tube balloon bumper. The G tube was repositioned. Would continue mechanical soft diet and reassess symptoms and intake. Would not remove G tube unless intake is adequate." 08/30/2017: No more nausea and vomiting reported to me after Gtube repositioned. Going for Bronchoscopy, possible d/c back to [facility] in [place], [place], d/w mother, she will sign for old records which is delayed due to Holidays. 08/31/17: Bronchoscopy delayed until today. D/w Dr. Abigail MILLER yesterday, going for Barium test today and possible remove PEG tube per patient and mother wishes. Old records from [facility] and [facility] pending. 08/31/17: per Dr. Asmita MILLER "1.Dysphagia? 2.N/V -N/V- resolved -clinically pt w/o GI complaints or reports of dysphagia -Ba swallow negative for stricture -G-tube balloon deflated and G-tube removed w/o difficultly per pt request. Pt tolerated well. Site w/o signs of infection. Gauze dressing applied. -diet per Speech Path recommendations -will sign off, please re-consult if needed" Will discharge back to [facility] (last day for bed hold) SNF in [place], [place] Old records never came from [facility] Disposition: DC/TX-03 SNF W DONTRELL METCALF Time spent for discharge: 35 minutes Core Measure Documentation - Palliative Care Palliative Care/ Comfort Measures: Not Applicable - Core Measures Any of the following diagnoses?: none - VTE Discharge Requirements Deep Vein Thrombosis/Pulmonary Embolism Present on Admission: No Has pt received <5 days of overlap therapy or INR<2.0: No Anticoagulant overlap therapy prescribed at discharge: No Contraindication No Overlap Therapy order at DC: Not Indicated Exam - Physical Exam Narrative exam: GEN: WDWN, NAD, AWAKE, ALERT, ORIENTATED 3 HEENT: NCAT, EOMI, PERRL, OP Clear NECK: supple, no adenopathy, no thyromegaly, no JVD, old healed trach site CVS/HEART: Regular tachycardia NORMAL S1S2, NO JVD, pulses present bilaterally CHEST/LUNGS: Course breath sounds bilaterally Symmetrical chest expansion, good air entry bilaterally GI/Abdomen: soft, NTND, PEG tube in place good bowel sounds, no guarding or rebound /Bladder: no suprapubic tenderness, no CVA or paraspinal tenderness EXT/Skin: no c/c/e, no obvious rash MSK: Quadriplegic Neuro: CN 2-12 grossly intact, no new focal deficits Psych: calm - Constitutional Vitals: Temp Pulse Resp BP Pulse Ox 98.8 F 98 H 20 94/63 98 09/01/17 07:23 09/01/17 07:31 09/01/17 07:31 09/01/17 07:23 09/01/17 07:31 Plan Activity: up only with assistance, fall precautions, other (no strenous activity until cleared by pcp) Diet: per dietitian instruction Follow up with: PRIMARY CARE,MD [Primary Care Provider] - 3-5 Days Forms: Accompanied Note Prescriptions: oxyCODONE [Roxicodone TAB] 5 mg PO Q4HR 30 Days #30 tablet oxyCODONE /ACETAMINOPHEN [Percocet 5/325 mg] 1 tab PO Q6H PRN #30 tablet PRN Reason: Pain , Severe (7-10)
[2017-09-01] MEDS: LOVENOX SUB-Q SCH (12:55)
[2017-09-01] MEDS: LEVAQUIN 750MG/150ML 750 MG/150 ML BAG IV SCH (12:55)
[2017-09-01] MEDS: PROTONIX PO SCH (12:56)
[2017-09-01] MEDS: SENOKOT PO SCH ×2 (12:57→22:17)
[2017-09-01] MEDS: VIMPAT PO SCH ×2 (12:57→22:17)
[2017-09-01] MEDS: FOLVITE PO SCH (12:58)
[2017-09-01] MEDS: FLORANEX PO SCH (18:40)
[2017-09-01] MEDS: COLACE PO SCH ×3 (18:41→22:18)
[2017-09-02] MEDS: DUONEB *Not for PRN Use IH SCH ×3 (01:55→13:17)
--- NOTE | 2017-09-02 08:17 | Progress Note ---
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 Patient returned 2 days later on 08/11/2017 with persistent nausea/vomiting resulting in aspiration pneumonia and was discharged to [facility] in [place], [place] on 08/18/2017, now returns 08/25/2017 with suspect GI bleed. Portable chest x-ray read as there is left lung volume loss/atelectasis with shift of the mediastinum to the left, bibasilar airspace opacity findings may be related to pneumonia cannot exclude left lung lobar atelectasis. CT of the chest without contrast read as heart size is normal, pericardial effusion, bilateral lower lobe temperature is greater on itself, demonstrating significant left upper alone, there is significant atelectasis of the left lower lung due to endobronchial obstruction possibly due to mucous aspiration, endobronchial tumor cannot be entirely excluded, there calcified granulomas in the left lower lung, there is no pleural effusion or pneumothorax, there is an exophytic mass of the upper pole of the right kidney measuring 2 cm, this could be hemorrhagic cysts, tumor cannot be excluded. CT abdomen and pelvis without contrast read as right lung base opacities are concerning for pneumonia, bilateral nonobstructing renal calculi -Sepsis due to bilateral aspiration pneumonia with mucus plug: Treated with IV antibiotics, infectious disease is not available, consult embalmer assistant, questionable endobronchial obstruction -R/o GI Bleed with no anemia: Continue to follow H&H -Persistent nausea/vomiting leading to recurrent aspiration pneumonia: Consult GI, possible EGD, patient is eating by mouth, question removal of G-tube, will get speech evaluation/dietitian to see if she is getting enough calories and she has proper swallowing mechanism -Quadriplegia due to his cerebral palsy/Isa Chaidez -Seizure disorder: continue antiepileptics Modified barium done discussed with GI 08/28/17: I sat down and had a long discussion with Mother at bedside, who reports that patient had multiple bronchoscopies for obstruction. She has also undergoing EGD with dilation at [facility]. I requested old records from [facility] and LTach at [facility]. Mother is fixed on removing peg tube , despite patient continued n/v. Mother is fixed on daughter being kicked out of Ltach at [facility] to [facility]. Mother says patient was ambulatory (couple of steps) with walker until March 2017 when whe was admitted to [facility] then transferred to [facility] then discharged to [facility] at [facility]. Bronchoscopy is planned. 08/29/2017: Still with nausea/vomiting, will make NPO, d/w GI, Dr. Bah. Downgrade diet, make npo. Await records from [facility]. Also, low grade temp per GI, Dr. 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 Galeana who will obtain the records from [facility] endoscopy a few months ago. (4) Nausea and vomiting Current Visit: Yes Status: Acute Plan to address problem: Most likely due to partial GOO from migration of the G tube balloon bumper. The G tube was repositioned. Would continue mechanical soft diet and reassess symptoms and intake. Would not remove G tube unless intake is adequate." 08/30/2017: no more nausea and vomiting reported to me. Going for Bronchoscopy, possible d/c back to [facility] in [place], [place], d/w mother, she will sign for old records which is delayed due to Holidays. 08/31/17: Bronchoscopy delayed until today. D/w GI, Dr. Hayes yesterday, going for Barium test today and possible remove PEG tube per patient and mother wishes. Old records from [facility] and [facility] pending. 09/01/17: Dr. hayes to remove peg today, then back to me History Interval history: Patient was seen and examined. Follow-up on current diagnosis. Overnight uneventful. Patient denies any chest pain, shortness breath, or severe headaches. Imaging, nursing note, chart, labs and old chart reviewed. +n/v, she wants the Gtube out Hospitalist Physical - Physical exam Narrative exam: GEN: WDWN, NAD, AWAKE, ALERT, ORIENTATED 3 HEENT: NCAT, EOMI, PERRL, OP Clear NECK: supple, no adenopathy, no thyromegaly, no JVD, old healed trach site CVS/HEART: Regular tachycardia NORMAL S1S2, NO JVD, pulses present bilaterally CHEST/LUNGS: Course breath sounds bilaterally Symmetrical chest expansion, good air entry bilaterally GI/Abdomen: soft, NTND, PEG tube in place good bowel sounds, no guarding or rebound /Bladder: no suprapubic tenderness, no CVA or paraspinal tenderness EXT/Skin: no c/c/e, no obvious rash MSK: Quadriplegic Neuro: CN 2-12 grossly intact, no new focal deficits Psych: calm - Constitutional Vitals: Temp Pulse Resp BP Pulse Ox 99.1 F 105 H 18 109/75 96 09/01/17 16:04 09/02/17 02:11 09/02/17 02:11 09/01/17 16:04 09/01/17 21:24 General appearance: Present: no acute distress Results - Labs CBC & Chem 7: 08/31/17 04:38 08/31/17 04:38 Labs: Laboratory Last Values WBC 10.5 K/mm3 (4.5-11.0) 08/31/17 04:38 RBC 4.06 M/mm3 (3.65-5.03) 08/31/17 04:38 Hgb 10.9 gm/dl (10.1-14.3) 08/31/17 04:38 Hct 33.1 % (30.3-42.9) 08/31/17 04:38 MCV 82 fl (79-97) 08/31/17 04:38 MCH 27 pg (28-32) L 08/31/17 04:38 MCHC 33 % (30-34) 08/31/17 04:38 RDW 16.2 % (13.2-15.2) H 08/31/17 04:38 Plt Count 264 K/mm3 (140-440) 08/31/17 04:38 Lymph % (Auto) TNR 08/26/17 03:55 [place] % (Auto) TNR 08/26/17 03:55 Eos % (Auto) TNR 08/26/17 03:55 Baso % (Auto) TNR 08/26/17 03:55 Lymph # TNR 08/26/17 03:55 [place] # TNR 08/26/17 03:55 Eos # TNR 08/26/17 03:55 Baso # TNR 08/26/17 03:55 Seg Neutrophils % TNR 08/26/17 03:55 Seg Neutrophils # TNR 08/26/17 03:55 PT 14.8 Sec. (12.2-14.9) 08/25/17 19:46 INR 1.10 (0.87-1.13) 08/25/17 19:46 APTT 34.1 Sec. (24.2-36.6) 08/25/17 19:46 POC ABG pH 7.471 (7.35-7.45) H 08/25/17 20:51 POC ABG pCO2 36.2 (35-45) 08/25/17 20:51 POC ABG pO2 71 (80-105) L 08/25/17 20:51 POC ABG HCO3 26.4 08/25/17 20:51 POC ABG Total CO2 27 08/25/17 20:51 POC ABG O2 Sat 95 08/25/17 20:51 POC ABG Base Excess 3 08/25/17 20:51 FiO2 21 % 08/25/17 20:51 Sodium 140 mmol/L (137-145) 08/31/17 04:38 Potassium 3.8 mmol/L (3.6-5.0) 08/31/17 04:38 Chloride 100.7 mmol/L (98-107) 08/31/17 04:38 Carbon Dioxide 25 mmol/L (22-30) 08/31/17 04:38 Anion Gap 18 mmol/L 08/31/17 04:38 BUN 3 mg/dL (7-17) L 08/31/17 04:38 Creatinine < 0.2 mg/dL (0.7-1.2) L 08/31/17 04:38 Estimated GFR > 60 ml/min 08/31/17 04:38 BUN/Creatinine Ratio 15 % 08/31/17 04:38 Glucose 77 mg/dL (65-100) 08/31/17 04:38 POC Glucose 87 (70-105) 09/01/17 00:09 Lactic Acid 0.80 mmol/L (0.7-2.0) 08/25/17 23:45 Calcium 8.6 mg/dL (8.4-10.2) 08/31/17 04:38 Magnesium 1.80 mg/dL (1.7-2.3) 08/29/17 07:54 Total Bilirubin 0.20 mg/dL (0.1-1.2) 08/25/17 19:46 AST 17 units/L (5-40) 08/25/17 19:46 ALT 12 units/L (7-56) 08/25/17 19:46 Alkaline Phosphatase 70 units/L (35-129) 08/25/17 19:46 Total Creatine Kinase 16 units/L (30-135) L 08/25/17 20:54 C-Reactive Protein 4.20 mg/dL (0.00-1.30) H 08/27/17 19:24 Total Protein 6.2 g/dL (6.3-8.2) L 08/25/17 19:46 Albumin 3.2 g/dL (3.9-5) L 08/25/17 19:46 Albumin/Globulin Ratio 1.1 % 08/25/17 19:46 Lipase 68 units/L (13-60) H 08/25/17 19:46 Urine Color Yellow (Yellow) 08/25/17 21:50 Urine Turbidity Clear (Clear) 08/25/17 21:50 Urine pH 5.0 (5.0-7.0) 08/25/17 21:50 Ur Specific [place] 1.025 (1.003-1.030) 08/25/17 21:50 Urine Protein <15 mg/dl mg/dL (Negative) 08/25/17 21:50 Urine Glucose (UA) Neg mg/dL (Negative) 08/25/17 21:50 Urine Ketones 20 mg/dL (Negative) 08/25/17 21:50 Urine Blood Neg (Negative) 08/25/17 21:50 Urine Nitrite Neg (Negative) 08/25/17 21:50 Urine Bilirubin Neg (Negative) 08/25/17 21:50 Urine Urobilinogen < 2.0 mg/dL (<2.0) 08/25/17 21:50 Ur Leukocyte Esterase Sm (Negative) 08/25/17 21:50 Urine WBC (Auto) 34.0 /HPF (0.0-6.0) H 08/25/17 21:50 Urine RBC (Auto) 2.0 /HPF (0.0-6.0) 08/25/17 21:50 U Epithel Cells (Auto) 1.0 /HPF (0-13.0) 08/25/17 21:50 Urine Bacteria (Auto) 1+ /HPF (Negative) 08/25/17 21:50 Urine Mucus 3+ /HPF 08/25/17 21:50 Vancomycin Trough 4.0 ug/mL (5.0-20.0) L 08/29/17 07:54 Blood Type B POSITIVE 08/25/17 19:46 Antibody Screen Positive 08/25/17 19:46 Antibody Identification Anti-E Warm Auto Antibody 08/25/17 19:46 Antibody Identification Anti-E Warm Auto Antibody 08/25/17 19:46
[2017-09-02 08:48] VITALS: BP 130/92
[2017-09-02] MEDS: PERCOCET 5/325 PO PRN (10:30)
[2017-09-02] MEDS: FOLVITE PO SCH (10:34)
[2017-09-02] MEDS: PROTONIX PO SCH (10:34)
[2017-09-02] MEDS: COLACE PO SCH (10:35)
[2017-09-02] MEDS: VIMPAT PO SCH (10:35)
[2017-09-02] MEDS: SENOKOT PO SCH (10:35)
[2017-09-02] MEDS: NEURONTIN PO SCH ×2 (10:35→14:00)
[2017-09-02] MEDS: LOVENOX SUB-Q SCH (10:36)
[2017-09-02] MEDS: LEVAQUIN 750MG/150ML 750 MG/150 ML BAG IV SCH (10:36)
[2017-09-02] MEDS: FLORANEX PO SCH (10:36)
--- NOTE | 2017-09-02 10:42 | Progress Note ---
Assessment and Plan -Sepsis due to bilateral aspiration pneumonia with mucus plug:Complete antibiotic course s/p bronchoscopy -GI Bleed with no anemia: Continue to follow H&H -Persistent nausea/vomiting leading to recurrent aspiration pneumonia: -Quadriplegia due cerebral palsy/Isa Chaidez -Seizure disorder: continue antiepileptics Continue with aspiration precautions Mucolytics Supplemental oxygen to keep O2 sats>94% Follow up bronchoscopy results VTE prophylaxis PEG tube apparently is to be removed prior to discharge Subjective Date of service: 09/01/17 Principal diagnosis: Dysphagia Interval history: Follow up for Left Lower Lobe Atelectasis; Aspiration Pneumonia Patient was seen and examined. Follow-up on current diagnosis. Overnight uneventful. Patient denies any chest pain, shortness breath, or severe headaches. Imaging, nursing note, chart, labs and old chart reviewed. +n/v, she wants the Gtube out s/p bronchoscopy Objective - Exam Narrative Exam: GEN: WDWN, NAD, awake, alert, oriented 3 HEENT: NCAT, EOMI, PERRL,post tracheostomy scar NECK: supple, no adenopathy, no thyromegaly, no JVD, old healed tracheostomy site CVS/HEART: Regular tachycardia,S1S2, NO JVD, pulses present bilaterally CHEST/LUNGS: Course breath sounds bilaterally Symmetrical chest expansion, good air entry bilaterally GI/Abdomen: soft, NTND, PEG tube in place good bowel sounds, no guarding or rebound /Bladder: no suprapubic tenderness, no CVA or paraspinal tenderness EXT/Skin: no c/c/e, no obvious rash MSK: Quadriplegic Neuro: CN 2-12 grossly intact Psych: agitated, Vital Signs - 12hr 09/02/17 09/02/17 09/02/17 01:55 02:11 07:35 Temperature 99.0 F Pulse Rate 109 H Pulse Rate [ 101 H 105 H Anterior Bilateral Throughout] Respiratory 18 Rate Respiratory 17 18 Rate [Anterior Bilateral Throughout] Blood Pressure 130/92 O2 Sat by Pulse 96 Oximetry Constitutional: no acute distress, alert Eyes: non-icteric ENT: oropharynx moist Neck: supple, no lymphadenopathy Ascultation: Left: diminished breath sounds (Left base.) Cardiovascular: regular rate and rhythm Gastrointestinal: normoactive bowel sounds, soft, non-tender Integumentary: normal Extremities: no cyanosis, no edema Neurologic: other (Sleeping at this time.) Psychiatric: other (Sleeping at this time) CBC and BMP: 08/31/17 04:38 08/31/17 04:38 ABG, PT/INR, D-dimer: ABG POC ABG pH 7.471 (7.35-7.45) H 08/25/17 20:51 POC ABG pCO2 36.2 (35-45) 08/25/17 20:51 POC ABG pO2 71 (80-105) L 08/25/17 20:51 POC ABG HCO3 26.4 08/25/17 20:51 POC ABG Total CO2 27 08/25/17 20:51 POC ABG O2 Sat 95 08/25/17 20:51 PT/INR, D-dimer PT 14.8 Sec. (12.2-14.9) 08/25/17 19:46 INR 1.10 (0.87-1.13) 08/25/17 19:46 Abnormal lab findings: Abnormal Labs 08/25/17 08/25/17 08/25/17 19:46 19:46 20:51 WBC 13.9 H RBC 5.06 H MCH 26 L RDW 16.6 H Seg Neutrophils # 9.0 H POC ABG pH 7.471 H POC ABG pO2 71 L Sodium Potassium Chloride BUN Creatinine < 0.2 L Glucose POC Glucose Calcium Magnesium Total Creatine Kinase C-Reactive Protein Total Protein 6.2 L Albumin 3.2 L Lipase 68 H Urine WBC (Auto) Vancomycin Trough 08/25/17 08/25/17 08/26/17 20:54 21:50 22:28 WBC RBC MCH RDW Seg Neutrophils # POC ABG pH POC ABG pO2 Sodium Potassium Chloride BUN Creatinine Glucose POC Glucose 116 H Calcium Magnesium Total Creatine Kinase 16 L C-Reactive Protein Total Protein Albumin Lipase Urine WBC (Auto) 34.0 H Vancomycin Trough 08/27/17 08/27/17 08/27/17 05:04 05:04 08:46 WBC RBC MCH 27 L RDW 16.0 H Seg Neutrophils # POC ABG pH POC ABG pO2 Sodium Potassium 2.4 L* D Chloride BUN 3 L Creatinine < 0.2 L Glucose 105 H POC Glucose Calcium 8.3 L Magnesium 1.40 L Total Creatine Kinase C-Reactive Protein Total Protein Albumin Lipase Urine WBC (Auto) Vancomycin Trough 27.1 H 08/27/17 08/27/17 08/27/17 16:55 19:24 21:57 WBC RBC MCH RDW Seg Neutrophils # POC ABG pH POC ABG pO2 Sodium Potassium Chloride BUN Creatinine Glucose POC Glucose 114 H 110 H Calcium Magnesium Total Creatine Kinase C-Reactive Protein 4.20 H Total Protein Albumin Lipase Urine WBC (Auto) Vancomycin Trough 08/28/17 08/28/17 08/28/17 11:22 11:43 15:35 WBC RBC MCH RDW Seg Neutrophils # POC ABG pH POC ABG pO2 Sodium 148 H Potassium 3.1 L D Chloride 112.7 H BUN 3 L Creatinine < 0.2 L Glucose 124 H POC Glucose 127 H 125 H Calcium 8.1 L Magnesium Total Creatine Kinase C-Reactive Protein Total Protein Albumin Lipase Urine WBC (Auto) Vancomycin Trough 08/28/17 08/29/17 08/29/17 22:04 05:30 07:54 WBC RBC MCH RDW Seg Neutrophils # POC ABG pH POC ABG pO2 Sodium Potassium Chloride BUN Creatinine Glucose POC Glucose 119 H 150 H Calcium Magnesium Total Creatine Kinase C-Reactive Protein Total Protein Albumin Lipase Urine WBC (Auto) Vancomycin Trough 4.0 L 08/29/17 08/29/17 08/29/17 07:54 07:54 11:39 WBC 12.0 H RBC MCH 26 L RDW 16.3 H Seg Neutrophils # POC ABG pH POC ABG pO2 Sodium Potassium Chloride 107.7 H BUN < 1 L Creatinine < 0.2 L Glucose 120 H POC Glucose 136 H Calcium 8.2 L Magnesium Total Creatine Kinase C-Reactive Protein Total Protein Albumin Lipase Urine WBC (Auto) Vancomycin Trough 08/30/17 08/30/17 08/31/17 07:33 07:33 04:38 WBC 13.7 H RBC MCH 27 L 27 L RDW 16.3 H 16.2 H Seg Neutrophils # POC ABG pH POC ABG pO2 Sodium Potassium Chloride BUN 4 L Creatinine < 0.2 L Glucose POC Glucose Calcium Magnesium Total Creatine Kinase C-Reactive Protein Total Protein Albumin Lipase Urine WBC (Auto) Vancomycin Trough 08/31/17 04:38 WBC RBC MCH RDW Seg Neutrophils # POC ABG pH POC ABG pO2 Sodium Potassium Chloride BUN 3 L Creatinine < 0.2 L Glucose POC Glucose Calcium Magnesium Total Creatine Kinase C-Reactive Protein Total Protein Albumin Lipase Urine WBC (Auto) Vancomycin Trough Allied health notes reviewed: nursing
--- NOTE | 2017-09-02 13:11 | Progress Note ---
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 Patient returned 2 days later on 08/11/2017 with persistent nausea/vomiting resulting in aspiration pneumonia and was discharged to [facility] in [place], [place] on 08/18/2017, now returns 08/25/2017 with suspect GI bleed. Portable chest x-ray read as there is left lung volume loss/atelectasis with shift of the mediastinum to the left, bibasilar airspace opacity findings may be related to pneumonia cannot exclude left lung lobar atelectasis. CT of the chest without contrast read as heart size is normal, pericardial effusion, bilateral lower lobe temperature is greater on itself, demonstrating significant left upper alone, there is significant atelectasis of the left lower lung due to endobronchial obstruction possibly due to mucous aspiration, endobronchial tumor cannot be entirely excluded, there calcified granulomas in the left lower lung, there is no pleural effusion or pneumothorax, there is an exophytic mass of the upper pole of the right kidney measuring 2 cm, this could be hemorrhagic cysts, tumor cannot be excluded. CT abdomen and pelvis without contrast read as right lung base opacities are concerning for pneumonia, bilateral nonobstructing renal calculi -Sepsis due to bilateral aspiration pneumonia with mucus plug: Treated with IV antibiotics, infectious disease is not available, consult slp teacher, questionable endobronchial obstruction -R/o GI Bleed with no anemia: Continue to follow H&H -Persistent nausea/vomiting leading to recurrent aspiration pneumonia: Consult GI, possible EGD, patient is eating by mouth, question removal of G-tube, will get speech evaluation/dietitian to see if she is getting enough calories and she has proper swallowing mechanism -Quadriplegia due to his cerebral palsy/Isa Chaidez -Seizure disorder: continue antiepileptics Modified barium done discussed with GI 08/28/17: I sat down and had a long discussion with Mother at bedside, who reports that patient had multiple bronchoscopies for obstruction. She has also undergoing EGD with dilation at [facility]. I requested old records from [facility] and [facility] at [facility]. Mother is fixed on removing peg tube , despite patient continued n/v. Mother is fixed on daughter being kicked out of [facility] at [facility] to [facility]. Mother says patient was ambulatory (couple of steps) with walker until March 2017 when whe was admitted to [facility] then transferred to [facility] then discharged to [facility] at [facility]. Bronchoscopy is planned. 08/29/2017: Still with nausea/vomiting, will make NPO, d/w GI, Dr. Bah. Downgrade diet, make npo. Await records from [facility]. Also, low grade temp per GI, Dr. 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 Galeana who will obtain the records from [facility] endoscopy a few months ago. (4) Nausea and vomiting Current Visit: Yes Status: Acute Plan to address problem: Most likely due to partial GOO from migration of the G tube balloon bumper. The G tube was repositioned. Would continue mechanical soft diet and reassess symptoms and intake. Would not remove G tube unless intake is adequate." 08/30/2017: no more nausea and vomiting reported to me. Going for Bronchoscopy, possible d/c back to [facility] in [place], [place], d/w mother, she will sign for old records which is delayed due to Holidays. 08/31/17: Bronchoscopy delayed until today. D/w GI, Dr. Hayes yesterday, going for Barium test today and possible remove PEG tube per patient and mother wishes. Old records from [facility] and [facility] pending. 09/01/17: Dr. hayes to remove peg today, then back to [place] 09/02/17: back to [place] once accepted, finished with ABX History Interval history: Patient was seen and examined. Follow-up on current diagnosis. Overnight uneventful. Patient denies any chest pain, shortness breath, or severe headaches. Imaging, nursing note, chart, labs and old chart reviewed. +n/v, she wants the Gtube out Hospitalist Physical - Physical exam Narrative exam: GEN: WDWN, NAD, AWAKE, ALERT, ORIENTATED 3 HEENT: NCAT, EOMI, PERRL, OP Clear NECK: supple, no adenopathy, no thyromegaly, no JVD, old healed trach site CVS/HEART: Regular tachycardia NORMAL S1S2, NO JVD, pulses present bilaterally CHEST/LUNGS: Course breath sounds bilaterally Symmetrical chest expansion, good air entry bilaterally GI/Abdomen: soft, NTND, PEG tube in place good bowel sounds, no guarding or rebound /Bladder: no suprapubic tenderness, no CVA or paraspinal tenderness EXT/Skin: no c/c/e, no obvious rash MSK: Quadriplegic Neuro: CN 2-12 grossly intact, no new focal deficits Psych: calm - Constitutional Vitals: Temp Pulse Resp BP Pulse Ox 99.0 F 109 H 18 130/92 96 09/02/17 07:35 09/02/17 07:35 09/02/17 07:35 09/02/17 07:35 09/02/17 07:35 General appearance: Present: no acute distress Results - Labs CBC & Chem 7: 08/31/17 04:38 08/31/17 04:38 Labs: Laboratory Last Values WBC 10.5 K/mm3 (4.5-11.0) 08/31/17 04:38 RBC 4.06 M/mm3 (3.65-5.03) 08/31/17 04:38 Hgb 10.9 gm/dl (10.1-14.3) 08/31/17 04:38 Hct 33.1 % (30.3-42.9) 08/31/17 04:38 MCV 82 fl (79-97) 08/31/17 04:38 MCH 27 pg (28-32) L 08/31/17 04:38 MCHC 33 % (30-34) 08/31/17 04:38 RDW 16.2 % (13.2-15.2) H 08/31/17 04:38 Plt Count 264 K/mm3 (140-440) 08/31/17 04:38 Lymph % (Auto) TNR 12/29/17 03:55 Forrest % (Auto) TNR 08/26/17 03:55 Eos % (Auto) TNR 08/26/17 03:55 Baso % (Auto) TNR 08/26/17 03:55 Lymph # TNR 08/26/17 03:55 Forrest # TNR 08/26/17 03:55 Eos # TNR 08/26/17 03:55 Baso # TNR 08/26/17 03:55 Seg Neutrophils % TNR 08/26/17 03:55 Seg Neutrophils # TNR 08/26/17 03:55 PT 14.8 Sec. (12.2-14.9) 08/25/17 19:46 INR 1.10 (0.87-1.13) 08/25/17 19:46 APTT 34.1 Sec. (24.2-36.6) 08/25/17 19:46 POC ABG pH 7.471 (7.35-7.45) H 08/25/17 20:51 POC ABG pCO2 36.2 (35-45) 08/25/17 20:51 POC ABG pO2 71 (80-105) L 08/25/17 20:51 POC ABG HCO3 26.4 08/25/17 20:51 POC ABG Total CO2 27 08/25/17 20:51 POC ABG O2 Sat 95 08/25/17 20:51 POC ABG Base Excess 3 08/25/17 20:51 FiO2 21 % 08/25/17 20:51 Sodium 140 mmol/L (137-145) 08/31/17 04:38 Potassium 3.8 mmol/L (3.6-5.0) 08/31/17 04:38 Chloride 100.7 mmol/L (98-107) 08/31/17 04:38 Carbon Dioxide 25 mmol/L (22-30) 08/31/17 04:38 Anion Gap 18 mmol/L 08/31/17 04:38 BUN 3 mg/dL (7-17) L 08/31/17 04:38 Creatinine < 0.2 mg/dL (0.7-1.2) L 08/31/17 04:38 Estimated GFR > 60 ml/min 08/31/17 04:38 BUN/Creatinine Ratio 15 % 08/31/17 04:38 Glucose 77 mg/dL (65-100) 08/31/17 04:38 POC Glucose 87 (70-105) 09/01/17 00:09 Lactic Acid 0.80 mmol/L (0.7-2.0) 08/25/17 23:45 Calcium 8.6 mg/dL (8.4-10.2) 08/31/17 04:38 Magnesium 1.80 mg/dL (1.7-2.3) 08/29/17 07:54 Total Bilirubin 0.20 mg/dL (0.1-1.2) 08/25/17 19:46 AST 17 units/L (5-40) 08/25/17 19:46 ALT 12 units/L (7-56) 08/25/17 19:46 Alkaline Phosphatase 70 units/L (35-129) 08/25/17 19:46 Total Creatine Kinase 16 units/L (30-135) L 08/25/17 20:54 C-Reactive Protein 4.20 mg/dL (0.00-1.30) H 08/27/17 19:24 Total Protein 6.2 g/dL (6.3-8.2) L 08/25/17 19:46 Albumin 3.2 g/dL (3.9-5) L 08/25/17 19:46 Albumin/Globulin Ratio 1.1 % 08/25/17 19:46 Lipase 68 units/L (13-60) H 08/25/17 19:46 Urine Color Yellow (Yellow) 08/25/17 21:50 Urine Turbidity Clear (Clear) 08/25/17 21:50 Urine pH 5.0 (5.0-7.0) 08/25/17 21:50 Ur Specific [place] 1.025 (1.003-1.030) 08/25/17 21:50 Urine Protein <15 mg/dl mg/dL (Negative) 08/25/17 21:50 Urine Glucose (UA) Neg mg/dL (Negative) 08/25/17 21:50 Urine Ketones 20 mg/dL (Negative) 08/25/17 21:50 Urine Blood Neg (Negative) 08/25/17 21:50 Urine Nitrite Neg (Negative) 08/25/17 21:50 Urine Bilirubin Neg (Negative) 08/25/17 21:50 Urine Urobilinogen < 2.0 mg/dL (<2.0) 08/25/17 21:50 Ur Leukocyte Esterase Sm (Negative) 08/25/17 21:50 Urine WBC (Auto) 34.0 /HPF (0.0-6.0) H 08/25/17 21:50 Urine RBC (Auto) 2.0 /HPF (0.0-6.0) 08/25/17 21:50 U Epithel Cells (Auto) 1.0 /HPF (0-13.0) 08/25/17 21:50 Urine Bacteria (Auto) 1+ /HPF (Negative) 08/25/17 21:50 Urine Mucus 3+ /HPF 08/25/17 21:50 Vancomycin Trough 4.0 ug/mL (5.0-20.0) L 08/29/17 07:54 Blood Type B POSITIVE 08/25/17 19:46 Antibody Screen Positive 08/25/17 19:46 Antibody Identification Anti-E Warm Auto Antibody 08/25/17 19:46 Antibody Identification Anti-E Warm Auto Antibody 08/25/17 19:46
== END 2017-09-02 14:30 | DRG 853 ==
LOC: ED 16:41 → CC1 22:23 → 3A 08-26 10:33
PROVIDERS: ADMIT Internal Medicine Geriatric Medicine; ATTEND Internal Medicine
PROC: 4A033R1 Measurement of Arterial Saturation, Peripheral, Percutaneous Approach (ICD-10-PCS; 2017-08-25)
PROC: 5A09457 Assistance with Respiratory Ventilation, 24-96 Consecutive Hours, Continuous Positive Airway Pressure (ICD-10-PCS; 2017-08-27)
PROC: 0B9J8ZX Drainage of Left Lower Lung Lobe, Via Natural or Artificial Opening Endoscopic, Diagnostic (ICD-10-PCS; principal; 2017-08-31)
DX: A41.9 Sepsis, unspecified organism (principal); J69.0 Pneumonitis due to inhalation of food and vomit; J96.21 Acute and chronic respiratory failure with hypoxia; R53.2 Functional quadriplegia; E44.0 Moderate protein-calorie malnutrition; I10 Essential (primary) hypertension; E11.9 Type 2 diabetes mellitus without complications; J45.909 Unspecified asthma, uncomplicated; G40.909 Epilepsy, unspecified, not intractable, without status epilepticus; E66.01 Morbid (severe) obesity due to excess calories; E87.6 Hypokalemia; F32.9 Major depressive disorder, single episode, unspecified; F41.9 Anxiety disorder, unspecified; M47.9 Spondylosis, unspecified; X58.XXXA Exposure to other specified factors, initial encounter; Z68.23 Body mass index [BMI] 23.0-23.9, adult; Z88.0 Allergy status to penicillin; Z88.1 Allergy status to other antibiotic agents; Z93.0 Tracheostomy status; Z90.721 Acquired absence of ovaries, unilateral; Y93.89 Activity, other specified; Y92.89 Other specified places as the place of occurrence of the external cause; Y99.8 Other external cause status; K94.23 Gastrostomy malfunction
CPT/HCPCS: 36415; 71010; 71045; 71250; 74176; 74220; 74230; 80048; 80053; 80202; 81001; 82140; 82271; 82550; 82803; 82962; 83690; 83735; 85025; 85027; 85610; 85730; 86140; 86850; 86870; 86900; 86901; 87040; 87086; 87116; 87205; 87400; 88112; 93005; 93010; 94640; 94660; 94760; 96361; 96365; 96367; 96375; J0171; J0456; J1650; J1956; J2250; J2270; J2405; J2704; J2765; J3370; J3475; J7030; J7042; J7050; Q0163